=== PATIENT | male | born 1985 | race Caucasian/White ===

== ENCOUNTER 2019-08-31 18:49 | Inpatient (IN) | payer OTHER, SELFPAY ==
[2019-08-31 20:26] LABS: Absolute Lymphocytes (CBC) 1.9 K/uL (0.7-4.9); Basophils % 0.7 % (0-1.3); MPV 11.3 fL (7.6-11.3); RBC Red Blood Cell Count 4.38 M/uL (4.33-5.43)
[2019-08-31] MEDS ORDERED: LORAZEPAM 1 MG TABLET ONE (20:26)
[2019-08-31] MEDS ORDERED: NA CHLORIDE 0.9% 2,000 ML ONE (20:33)
[2019-08-31 20:43] LABS: ALT/SGPT 80 U/L (12-78); AST/SGOT 41 U/L (15-37); Albumin 3.2 g/dL (3.4-5.0); Alkaline Phosphatase 59 U/L (45-117); BUN Blood Urea Nitrogen 25 mg/dL (7-18); Bicarbonate 25 mmol/L (21-32); Bilirubin Direct 0.2 mg/dL (0-0.2); Bilirubin Total 0.5 mg/dL (0.2-1.0); Glucose Level 111 mg/dL (74-106); Magnesium 2.2 mg/dL (1.8-2.4); NT PRO-BNP 1746 pg/mL (<125); Potassium 4.1 mmol/L (3.5-5.1); Protein, Total 6.5 g/dL (6.4-8.2); Sodium Level 138 mmol/L (136-145); Troponin (Emerg Dept Use Only) < 0.02 ng/mL (0.0-0.045)
[2019-08-31 20:46] LABS: Protime INR 1.13
--- NOTE | 2019-08-31 20:58 | RAD REPORT ---
EXAM DESCRIPTION: RAD - Chest Single View - 08/31/2019 8:41 pm CLINICAL HISTORY: DYSPNEA COMPARISON: None TECHNIQUE: AP portable chest image was obtained 08/31/2019 8:41 pm . FINDINGS: No peripheral mass consolidation. Central lung markings are mildly prominent. Baseline for the patient is unknown. Prominent cardiomegaly is present. Vasculature increased to a lesser degree. No measurable pleural effusion and no pneumothorax. No acute bony abnormality seen. No acute aortic findings suspected. IMPRESSION: No peripheral mass consolidation. Mild failure or volume overload are possible. Baseline for the patient is unknown.
--- NOTE | 2019-08-31 22:05 | P.HP ---
Certification for Inpatient Patient admitted to: Inpatient With expected LOS: >2 Midnights Practitioner: I am a practitioner with admitting privileges, knowledge of patient current condition, hospital course, and medical plan of care. Services: Services provided to patient in accordance with Admission requirements found in Title 42 Section 412.3 of the Code of Federal Regulations Patient History Date of Service: 08/31/19 Reason for admission: Lightheadedness, generalized weakness History of Present Illness: That 4-year-old gentleman with no known past medical history presented to the emergency department with a complaint of lightheadedness and feeling weak. Patient reports episode of palpitation that has lasted for weeks. He also reports an episode of nonproductive cough and completed a course of Zithromax. Patient stated he developed an episode of palpitation this morning, went to see her PCP, who prescribed for him Atenolol. Patient took the Atenolol and it help ed the palpitation but caused his blood pressures drop. His systolic blood pressure was down to 60 in the ED. His blood pressure responded to a bolus of normal saline and improved to the 120s. EKG demonstrates sinus rhythm PVCS. Initial troponin is negative. Patient is placed under observation for further management. Allergies Sulfa (Sulfonamide Antibiotics) Allergy (Verified 09/01/19 01:49) Itching/Hives/Rash Home Medications: NK [No Home Meds] 09/01/19 - Past Medical/Surgical History -: None -: None - Family History Family History: Reviewed- Non-Contributory - Family History Mother -: Lung disease Notes: Asthma - Social History Smoking Status: Never smoker Alcohol use: No CD- Drugs: No Place of Residence: Home Review of Systems Other: Except as documented, all other systems reviewed and negative. Physical Examination - Physical Exam General: Alert, In no apparent distress, Oriented x3 HEENT: Mucous membr. moist/pink, Sclerae nonicteric Respiratory: Clear to auscultation bilaterally, Normal air movement Cardiovascular: No edema, Regular rate/rhythm, Normal S1 S2, No murmurs Capillary refill: <2 Seconds Gastrointestinal: Normal bowel sounds, Soft and benign, Non-distended, Tenderness (Epigastrium) Musculoskeletal: No swelling, No erythema Integumentary: No rashes Neurological: Normal speech, Normal strength at 5/5 x4 extr - Studies Laboratory Data (last 24 hrs) 05/27/20 20:09: PT 13.3 H, INR 1.13 08/31/19 20:09: WBC 7.6, Hgb 14.2, Hct 41.0, Plt Count 192 08/31/19 20:09: Sodium 138, Potassium 4.1, BUN 25 H, Creatinine 1.18, Glucose 111 H, Magnesium 2.2, Total Bilirubin 0.5, AST 41 H, ALT 80 H, Alkaline Phosphatase 59 Assessment and Plan - Problems (Diagnosis) (1) Drug-induced hypotension Current Visit: Yes Status: Acute (2) Palpitation Current Visit: Yes Status: Acute (3) PVCs (premature ventricular contractions) Current Visit: Yes Status: Acute (4) Abdominal pain Current Visit: Yes Status: Acute - Plan Place under observation. IV hydration with normal saline. Telemetry Trend troponin Obtain echocardiogram Cardiology consult Monitor blood pressure closely. Checked TSH and Free T4. Obtain CT chest, abdomen and pelvis. - Advance Directives Does patient have a Living Will: No Does patient have a Durable POA for Healthcare: No
[2019-09-01] MEDS ORDERED: SODIUM CHLORIDE 0.9% 10ML INJ IV PRN (01:51)
[2019-09-01] MEDS ORDERED: ONDANSETRON 4 MG/2 ML VIAL IV PRN (01:51)
[2019-09-01] MEDS: NA CHLORIDE 0.9% 1,000 ML IV SCH ×2 (02:59→08:34)
[2019-09-01] MEDS ORDERED: NA CHLORIDE 0.9% 1,000 ML ONE (03:00)
[2019-09-01] MEDS ORDERED: LORazepam 2 MG/ML VIAL IV ONE (03:13)
[2019-09-01] MEDS ORDERED: LORazepam 2 MG/ML VIAL ONE (03:13)
[2019-09-01 03:28] LABS: Absolute Lymphocytes (CBC) 1.9 K/uL (0.7-4.9); Basophils % 0.9 % (0-1.3); Hematocrit 39.8 % (39.6-49.0); Lymphocytes % 21.4 % (15.3-44.8); MPV 11.3 fL (7.6-11.3); RBC Red Blood Cell Count 4.25 M/uL (4.33-5.43)
[2019-09-01 03:44] LABS: Magnesium 2.3 mg/dL (1.8-2.4); Potassium 4.2 mmol/L (3.5-5.1); Thyroid Stimulating Hormone 3.32 uIU/mL (0.360-3.740)
[2019-09-01] MEDS: MORPHINE 2 MG/ML SYR IV PRN ×3 (06:47→21:41)
[2019-09-01] MEDS ORDERED: MORPHINE 2 MG/ML SYR ONE (06:50)
--- NOTE | 2019-09-01 07:40 | RAD REPORT ---
EXAM DESCRIPTION: CT - Chest For Pe Angio - 09/01/2019 6:48 am CLINICAL HISTORY: SOB COMPARISON: None. TECHNIQUE: Dynamically enhanced axial 3 mm thick images of the chest were obtained during administra tion of <100> mL Isovue 370 IV contrast. Coronal and oblique reconstruction images were generated and reviewed. Exam utilizes a protocol for optimal evaluation of pulmonary arterial tree. Maximum intensity projections 3D imaging was utilized All CT scans are performed using dose optimization technique as appropriate and may include automated exposure control or mA/KV adjustment according to patient size. FINDINGS: A pulmonary embolus is not seen. A thoracic aortic aneurysm is not noted. Small right and tiny left pleural effusions. A pericardial effusion is not seen. Cardiomegaly Mild to moderate ground-glass opacities left lung. Mild ground-glass opacities right lung IMPRESSION: Negative for a pulmonary embolism. Mild to moderate ground-glass opacities within the lungs probably indicate pulmonary edema.
--- NOTE | 2019-09-01 07:48 | RAD REPORT ---
EXAM DESCRIPTION: CT - Abdomen Pelvis W Contrast - 09/01/2019 6:48 am CLINICAL HISTORY: Abdominal pain COMPARISON: 2009 TECHNIQUE: Computed axial tomography of the abdomen pelvis was obtained. 100 cc Isovue-300 was admin istered intravenously. Oral contrast was not requested which limits evaluation of bowel. All CT scans are performed using dose optimization technique as appropriate and may include automated exposure control or mA/KV adjustment according to patient size. FINDINGS: Possible gallstones. The gallbladder wall appears mildly thickened The liver, spleen, pancreas, adrenal and kidneys appear unremarkable. There is no evidence of diverticulitis. Normal appendix. Small amount ascites Small umbilical hernia. Wall of the duodenal bulb appears thickened IMPRESSION: Possible cholelithiasis. Gallbladder wall is mildly thickened which may indicate cholecy stitis Mild thickening of the wall of the duodenal bulb could be related to gallbladder pathology or duodena l pathology
[2019-09-01] MEDS: ENOXAPARIN 40 MG/0.4 ML SQ SCH (08:35)
[2019-09-01] MEDS ORDERED: PANTOPRAZOLE 40 MG INJ IVP SCH (09:00)
--- NOTE | 2019-09-01 09:12 | P.PN ---
Date of Service: 09/01/19 Patient has been complaining of abdominal pain. CTA thorax is negative for pulmonary embolism. It did report possible pulmonary edema. CT abdomen and pelvis reports cholelithiasis and possible cholecystitis. It also reported thickening of the duodenum bulb which could be due duodenitis. Will order right upper quadrant sonogram. IV protonix. IV morphine p.r.n. Cardiology consult an echocardiogram are pending.
[2019-09-01] MEDS: PANTOPRAZOLE 40 MG INJ IVP SCH ×2 (09:21→21:57)
--- NOTE | 2019-09-01 11:35 | CON ---
Date of Consultation: 09/01/2019 Reason For Consultation: Palpitations and PVCs. History Of Present Illness: This is a 34-year-old obese male with a significant history of obstructi ve sleep apnea that is not treated, presented to the emergency room with lightheadedness, dizziness a nd near syncope. Reported that he was evaluated at a local clinic for fast heart complaint and was g iven atenolol 25 mg daily. Soon was he starting the medicine, started feeling very weak and dizzy an d about to pass out. Did not have an actual syncope. Denies having any chest pain. There is no linda sea, vomiting, or diarrhea, and the patient is active without exertional chest pain. Past Medical History: None. Medications: None. Allergies: SULFA. Social History: He does not smoke. Drinks occasionally. He does not use any drugs. Family History: No premature coronary artery disease, cancer. Review of Systems: All systems reviewed. They were negative except above mentioned in the HPI. Physical Examination: Vital Signs: Temperature is 98.7, pulse 73, breathing at 18, blood pressure 124/76, saturating 99%. General: Pleasant young male, in no distress. Head and Neck: Pupils are equal, react to light. Intact eye movements. No JVD. No cervical lympha denopathy. Neck supple. Thyroid is not enlarged. Lungs: Clear to auscultation bilaterally. No rhonchi, rales, or crackles. No accessory muscle use. Heart: Regular. No extra sounds. Abdomen: Soft, nontender. Bowel sounds positive. No organomegaly. No masses or hernia. No rigidi ty or rebound. Extremities: No edema, clubbing, or cyanosis. Intact pulses. Skin: No rash. Neurologic: Alert, awake, oriented x3. No acute focal deficits appreciated. Investigations: Sodium 141, BUN 26, creatinine 1.2. Troponin is negative x3. NT-proBNP is 1746. T SH is normal. CTA of the chest negative for pulmonary embolism. Has findings suggestive of pulmonar y edema. Assessment And Plan: 1.Dizziness with near syncope, probably due to hypotension and medication induced. Apparently, his blood pressure was in the 60s when that event happened and this is probably related to the atenolol. This is recommended to be discontinued completely at this point. 2.Premature ventricular contractions on EKG and elevated NT-proBNP suggestive of congestive heart fa ilure. CTA of the lung also suggestive of findings of congestive heart failure. I recommend diuresi s with Lasix 40 mg IV twice a day; carefully monitoring the BUN, creatinine, electrolytes, and discon tinue IV fluids; to obtain an echocardiogram to further evaluate the cardiac structure and further ma nagement accordingly. 3.Obstructive sleep apnea, untreated. Patient was educated on the necessity of management of sleep apnea as well as weight loss. Thank you for this consultation. /TINO Voice ID: [id number] Report ID: [id number]
--- NOTE | 2019-09-01 17:35 | RAD REPORT ---
EXAM DESCRIPTION: US - Abdomen Exam Limited - 09/01/2019 5:24 pm CLINICAL HISTORY: Cholelithiasis COMPARISON: Abdomen Pelvis W Contrast dated 09/01/2019 FINDINGS: No gallstones, sludge or other abnormalities within the gallbladder lumen. Gallbladder wal l is slightly thickened. Folds or septations are seen in the gallbladder. No pericholecystic fluid co nfirmed. No common duct stone or biliary tree dilatation identified. IMPRESSION: No stones or sludge identifiable in the lumen. Gallbladder wall is slightly thickened and edematous. Correlation is needed with any cholecystitis cl inical or laboratory findings.
[2019-09-01] MEDS: FUROSEMIDE 40 MG/4 ML VIAL IV SCH ×2 (21:00→23:27)
--- NOTE | 2019-09-01 21:00 | P.PN ---
Subjective Date of Service: 09/01/19 Chief Complaint: Lightheadedness, generalized weakness Patient has been complaining of abdominal pain. His heart rate has been in the low 100s. He denies any palpitation. Physical Examination - Vital Signs Temperature: 97.4 F Blood Pressure: 100/60 Pulse: 83 Respirations: 18 Pulse Ox (%): 95 - Physical Exam General: Alert, In no apparent distress, Oriented x3, Obese HEENT: Mucous membr. moist/pink Neck: Supple, JVD not distended Respiratory: Clear to auscultation bilaterally, Normal air movement Cardiovascular: No edema, Regular rate/rhythm, Normal S1 S2 Gastrointestinal: Normal bowel sounds, Soft and benign, Tenderness (Epigastrium) Musculoskeletal: No swelling, No erythema Integumentary: No rashes Neurological: Normal strength at 5/5 x4 extr Assessment And Plan - Current Problems (Diagnosis) (1) Drug-induced hypotension Current Visit: Yes Status: Acute (2) Palpitation Current Visit: Yes Status: Acute (3) PVCs (premature ventricular contractions) Current Visit: Yes Status: Acute (4) Abdominal pain Current Visit: Yes Status: Acute (5) Congestive heart failure Current Visit: Yes Status: Acute (6) Cholelithiasis Current Visit: Yes Status: Acute - Plan Continue IV hydration with normal saline. Troponin trended negative Echocardiogram is pending Cardiology consult appreciated. IV Lasix is for CHF Right upper quadrant sonogram to further evaluate the cholelithiasis given abdominal pain. General surgery consult pending liver ultrasound result. Monitor blood pressure closely. Tsh within normal limit. .
[2019-09-01] MEDS: LORAZEPAM 1 MG TABLET PO PRN (23:28)
[2019-09-02 00:01] LABS: Urine Appearance CLEAR; Urine Bilirubin NEGATIVE (NEG); Urine Blood NEGATIVE (NEG); Urine Color DK YELLOW; Urine Glucose NEGATIVE (NEG); Urine Microscopic Reflex NO UMIC; Urine Protein NEGATIVE (NEG); Urine Specific Gravity >=1.030 (1.005-1.030); Urine Urobilinogen 0.2 mg/dL (0.2-1.0)
--- NOTE | 2019-09-02 07:52 | P.PN ---
Subjective Date of Service: 09/02/19 Chief Complaint: Lightheadedness, generalized weakness Patient states his abdominal pain is much better. He denies shortness of breath. He reports anxiety. His heart rate remain in the low 100s. Physical Examination - Vital Signs Temperature: 97.1 F Blood Pressure: 103/66 Pulse: 107 Respirations: 18 Pulse Ox (%): 95 - Physical Exam General: Alert, In no apparent distress HEENT: Mucous membr. moist/pink, EOMI Neck: Supple, JVD not distended Respiratory: Clear to auscultation bilaterally, Normal air movement Cardiovascular: No edema, Normal S1 S2, Other (Tachycardic) Gastrointestinal: Normal bowel sounds, Soft and benign, No tenderness Musculoskeletal: No swelling, No erythema Integumentary: No rashes Assessment And Plan - Current Problems (Diagnosis) (1) Drug-induced hypotension Current Visit: Yes Status: Resolved (2) Palpitation Current Visit: Yes Status: Acute (3) PVCs (premature ventricular contractions) Current Visit: Yes Status: Acute (4) Congestive heart failure Current Visit: Yes Status: Acute (5) Cholelithiasis Current Visit: Yes Status: Acute - Plan Off IV fluid. Echocardiogram is pending Cardiology consult appreciated. On IV Lasix is for CHF Right upper quadrant sonogram: Thickened and edematous gallbladder wall suggesting acute cholecystitis. General surgery consult requested. Monitor blood pressure closely.
[2019-09-02] MEDS: FUROSEMIDE 40 MG/4 ML VIAL IV SCH ×2 (08:32→20:46)
[2019-09-02] MEDS: PANTOPRAZOLE 40 MG INJ IVP SCH ×2 (08:32→20:49)
[2019-09-02] MEDS: ENOXAPARIN 40 MG/0.4 ML SQ SCH (08:32)
[2019-09-02] MEDS: LORAZEPAM 1 MG TABLET PO PRN ×2 (10:15→19:45)
--- NOTE | 2019-09-02 13:32 | ECHO ---
HEIGHT: 5 ft 3 in WEIGHT: 190 lb 0 oz DATE OF STUDY: 09/02/[address]: latonia stafford 2-DIMENSIONAL: YES M.MODE: YES DOPPLER: YES COLOR FLOW: YES TDS: NO PORTABLE: NO DEFINITY: NO BUBBLE STUDY: NO DIAGNOSIS: HYPOTENSION CARDIAC HISTORY: CATHERIZATION: NO SURGERY: NO PROSTHETIC VALVE: NO PACEMAKER: NO MEASUREMENTS (cm) DIASTOLIC (NORMALS) SYSTOLIC (NORMALS) IVSd 1.0 (0.6-1.2) LA Diam 4.6 (1.9-4.0) LVEF 10-15% LVIDd 6.1 (3.5-5.7) LVIDs 5.5 (2.0-3.5) %FS 9% LVPWd 1.1 (0.6-1.2) Ao Diam 2.8 (2.0-3.7) 2 DIMENSIONAL ASSESSMENT: RIGHT ATRIUM: NOMRAL LEFT ATRIUM: ENLARGED RIGHT VENTRICLE: MILD DYSFUNCTION LEFT VENTRICLE: DILATED TRICUSPID VALVE: NORMAL MITRAL VALVE: NORMAL PULMONIC VALVE: NORMAL AORTIC VALVE: NORMAL PERICARDIAL EFFUSION: NONE AORTIC ROOT: NORMAL LEFT VENTRICULAR WALL MOTION: SEVERE HYPOKINESIS GLOBELY. DOPPLER/COLOR FLOW: SEE ABOVE. COMMENTS: SEVERE LEFT VENTRICULAR DYSFUNCTION, EJECTION FRACTION 10-15%. SEVERE GLOBAL HYPOKINESIS. DIASTOLIC DYSFUNCTION. MILD MITRAL REGURGITATION, LEFT ATRIAL ENLARGEMENT. TECHNOLOGIST: MILAN HURTADO
[2019-09-02] MEDS: carvediloL 12.5 MG TAB PO SCH (17:32)
--- NOTE | 2019-09-02 19:13 | CON ---
Date of Consultation: 09/02/2019 Reason For Service: Chest pain and abdominal pain. History Of Present Illness: This is the case of a 34-year-old patient, comes to the hospital [facility] of chest pain. During the process, they also found to have some unstable vital signs so he was admitted to the hospital, found to be also having cholecystitis and surgical consult was obtained. T he patient feels better right now. He states that happened after eating. He does not recall any himanshu or episode. Allergies: SULFA. Medical Problems: None. Family History: Noncontributory. Social History: He does not smoke. He does not drink alcohol. Review of Systems: Ten-point otherwise unremarkable. Physical Examination: General: Patient is awake and alert. HEENT: Pupils are equal and reactive, anicteric. Neck: Supple. Chest: Clear. Abdomen: Epigastric tenderness. No Garcia. Extremities: Good capillary refill. Rectal: Deferred. Imaging Data: I reviewed the CAT scan and ultrasound shows one of them suspicious could be cholelith iasis, they are not sure the ultrasounds says no. Both of them at least agree on that the patient gilman s gallbladder distention and it could be a calculous cholecystitis. Laboratory Data: Blood work was reviewed with a WBC count of 7.6 and hemoglobin of 14.2. Chloride i s 112 and total bilirubin of 0.5. Assessment: A 34-year-old patient with chest pain but may be related also to some epigastric pain to the gallbladder. There is distention in that area even though the stone does in showing the gallbla dder I explained to him sometimes the stone may pass or may be tiny sludge that we cannot see. He is trying diet, today, he stated he has not get sick, so we explained to him several options. He may g o up for laparoscopic possible open cholecystectomy for acalculous cholecystitis with benefits, alter natives, and risks including, but not limited to infection, bleeding, damage to adjacent structures, anesthesia complication, choledocholithiasis, bile leak, pancreatitis, myocardial infarction, and ruth n . He also understands this may not relieve the symptoms and he might need more than one surgi indira intervention. At the same time, the other option will be diet control. He wants to give it a tr y to that, he wants to control his diet. He understands that may fail and even today in diet trial i f he fail then he may consider once again a surgical intervention. I will be here with you and with the patient to see which way we can address this issue. If he fails a diet today and then he was adv ised to be n.p.o. after midnight and then we will proceed with the cholecystectomy whenever he feels comfortable with it. If he gets to go home because he tolerates diet, then they may treat him with t he p.o. antibiotics, and then follow with my office in 1 week and a low-fat diet. He understood. JONNY/TINO Voice ID: [id number] Report ID: [id number]
[2019-09-03 05:29] LABS: Basophils % 0.9 % (0-1.3); Hematocrit 40.7 % (39.6-49.0); Lymphocytes % 28.5 % (15.3-44.8); MPV 10.9 fL (7.6-11.3); RBC Red Blood Cell Count 4.39 M/uL (4.33-5.43)
[2019-09-03 05:51] LABS: Potassium 3.3 mmol/L (3.5-5.1)
[2019-09-03] MEDS: carvediloL 12.5 MG TAB PO SCH ×2 (06:04→17:32)
[2019-09-03 07:12] LABS: Phosphorus 4.1 mg/dL (2.5-4.9)
--- NOTE | 2019-09-03 08:19 | P.PN ---
Subjective Date of Service: 09/03/19 Chief Complaint: Lightheadedness, generalized weakness Patient states his abdominal pain is much better. He reports being anxious. Heart rate has improved on the Coreg. Physical Examination - Vital Signs Temperature: 97.2 F Blood Pressure: 116/68 Pulse: 95 Respirations: 18 Pulse Ox (%): 98 - Physical Exam General: Alert, In no apparent distress HEENT: Mucous membr. moist/pink Neck: Supple Respiratory: Clear to auscultation bilaterally, Normal air movement Cardiovascular: No edema, Regular rate/rhythm, Normal S1 S2 Gastrointestinal: Normal bowel sounds, Soft and benign, No tenderness Musculoskeletal: No swelling, No erythema Integumentary: No rashes Assessment And Plan - Current Problems (Diagnosis) (1) Drug-induced hypotension Current Visit: Yes Status: Resolved (2) Palpitation Current Visit: Yes Status: Acute (3) PVCs (premature ventricular contractions) Current Visit: Yes Status: Acute (4) Cholelithiasis Current Visit: Yes Status: Acute (5) Acute systolic heart failure Current Visit: Yes Status: Acute - Plan Echocardiogram reported EF of 10-15% Contain IV Lasix. Need cardiology followup. Dr. Cid informed of patient's echo result. Updated patient on his current heart condition. Patient started on Coreg and lisinopril. General surgery input appreciated. Patient is high risk for surgery at this time until cleared by cardiology General surgery consult requested. Monitor blood pressure closely.
[2019-09-03] MEDS: FUROSEMIDE 40 MG/4 ML VIAL IV SCH ×3 (09:00→21:15)
[2019-09-03] MEDS: SPIRONOLACTONE 25 MG TABLET PO SCH (09:00)
[2019-09-03] MEDS ORDERED: POTASSIUM CL SA 10 MEQ TAB PO ONE (09:00)
[2019-09-03] MEDS: lisinopriL 10 MG TAB PO SCH (09:00)
[2019-09-03] MEDS: ENOXAPARIN 40 MG/0.4 ML SQ SCH (09:18)
[2019-09-03] MEDS: PANTOPRAZOLE 40 MG INJ IVP SCH ×2 (09:18→21:16)
[2019-09-03] MEDS: LORAZEPAM 1 MG TABLET PO PRN ×3 (09:21→22:34)
--- NOTE | 2019-09-03 18:44 | PN ---
Date of Progress Note: 09/03/2019 Subjective: I saw the patient by bedside. Feels generally weak with some shortness of breath, dyspn ea on exertion. No nausea, vomiting, diarrhea. Review of Systems: No chest pain. Minimal shortness of breath. No orthopnea. No cough, nausea, vomiting, diarrhea. N o abdominal pain. No history of urinary urgency. Other systems reviewed, all are negative. Physical Examination: Vital Signs: Temperature 97.2, pulse 95, breathing 18, blood pressure 116/68, saturating 95%. General: A pleasant young male, in no apparent distress. Head and Neck: Pupils are equal, reactive to light. Intact eye movements. Positive JVD. No cervic al lymph. Neck is supple. Thyroid is not enlarged. Lungs: Clear to auscultation bilaterally. No rhonchi, rales, crackles. No accessory muscle use. Heart: Regular rate and rhythm. No extra sounds. Abdomen: Soft, nontender. Bowel sounds positive. No organomegaly. No masses or hernia. No rigidi ty or rebound. Extremities: No edema, clubbing, cyanosis. Intact pulses. Skin: No rash. Neurologic: Alert, awake, oriented x3. No acute focal deficits appreciated. Lymph Nodes: No cervical or axillary lymphadenopathy. Investigations: Creatinine is 1.12. On echo, ejection fraction is 10% to 15%. Assessment And Plan: New-onset severe systolic congestive heart failure. Cardiac enzymes are negati ve. This is very unlikely to be ischemic. However, to complete the workup, we will schedule the pat ient for coronary angiogram on Thursday to rule out coronary artery disease as a cause of this. At thi s point, likely this is nonischemic cardiomyopathy and then I recommend guideline directed medical th erapy for congestive heart failure. Based on the blood pressure, start him on ELZBIETA inhibitor and if b lood pressure is on the lower side, I will try to cut down on the Coreg dose to 6.5 twice a day and t hen slowly increase the doses, as the patient was complaining of lightheadedness today. However, fol lowing this patient with you, we will plan for coronary angiogram on Thursday to complete the workup. SR/MODL Voice ID: [id number] Report ID: [id number]
[2019-09-04 06:19] LABS: Potassium 3.4 mmol/L (3.5-5.1)
[2019-09-04] MEDS: carvediloL 12.5 MG TAB PO SCH ×2 (06:34→17:45)
[2019-09-04 06:39] VITALS: BMI 33.0
--- NOTE | 2019-09-04 07:52 | P.PN ---
Subjective Date of Service: 09/04/19 Chief Complaint: Lightheadedness, generalized weakness Patient is complaining of fatigue. He denies abdominal pain. He attributed the fatigue to the blood pressure medications. Physical Examination - Vital Signs Temperature: 97.2 F Blood Pressure: 107/80 Pulse: 81 Respirations: 18 Pulse Ox (%): 95 - Physical Exam General: Alert, In no apparent distress HEENT: Mucous membr. moist/pink Neck: JVD not distended Respiratory: Clear to auscultation bilaterally, Normal air movement Cardiovascular: No edema, Normal pulses, Regular rate/rhythm, Normal S1 S2 Gastrointestinal: Normal bowel sounds, Soft and benign, No tenderness Musculoskeletal: No swelling, No erythema Integumentary: No rashes Assessment And Plan - Current Problems (Diagnosis) (1) Drug-induced hypotension Current Visit: Yes Status: Resolved (2) Palpitation Current Visit: Yes Status: Acute (3) PVCs (premature ventricular contractions) Current Visit: Yes Status: Acute (4) Cholelithiasis Current Visit: Yes Status: Acute (5) Acute systolic heart failure Current Visit: Yes Status: Acute - Plan Echocardiogram reported EF of 10-15% IV Lasix discontinued. Patient plan for cardiac catheterization tomorrow Contain Coreg and lisinopril. General surgery input appreciated. Patient is high risk for surgery at this time until cleared by cardiology Monitor blood pressure closely.
[2019-09-04] MEDS: ENOXAPARIN 40 MG/0.4 ML SQ SCH (08:22)
[2019-09-04] MEDS: PANTOPRAZOLE 40 MG INJ IVP SCH ×2 (08:22→20:34)
[2019-09-04] MEDS: SPIRONOLACTONE 25 MG TABLET PO SCH (08:22)
[2019-09-04] MEDS ORDERED: POTASSIUM CL SA 10 MEQ TAB PO ONE (09:00)
[2019-09-04] MEDS: lisinopriL 10 MG TAB PO SCH (09:00)
[2019-09-04] MEDS: LORAZEPAM 1 MG TABLET PO PRN ×2 (11:19→17:52)
[2019-09-05] MEDS: carvediloL 12.5 MG TAB PO SCH (05:49)
[2019-09-05 06:16] LABS: Potassium 3.7 mmol/L (3.5-5.1)
[2019-09-05] MEDS ORDERED: HEPA 1000U/500MLS 2,000 UNIT/1,000 ML BAG IV ONE (07:14)
[2019-09-05] MEDS: lisinopriL 10 MG TAB PO SCH (07:15)
[2019-09-05] MEDS: ENOXAPARIN 40 MG/0.4 ML SQ SCH (09:00)
[2019-09-05] MEDS ORDERED: POTASSIUM CL SA 10 MEQ TAB PO ONE (09:00)
[2019-09-05] MEDS: SPIRONOLACTONE 25 MG TABLET PO SCH (09:00)
--- NOTE | 2019-09-05 09:18 | P.PN ---
Subjective Date of Service: 09/05/19 Chief Complaint: Lightheadedness, generalized weakness Patient is anxious. He states the fatigue is better today. Physical Examination - Vital Signs Temperature: 97.9 F Blood Pressure: 110/80 Pulse: 94 Respirations: 18 Pulse Ox (%): 99 - Physical Exam General: Alert, In no apparent distress HEENT: Mucous membr. moist/pink, Sclerae nonicteric Neck: JVD not distended Respiratory: Clear to auscultation bilaterally, Normal air movement Cardiovascular: No edema, Regular rate/rhythm, Normal S1 S2 Gastrointestinal: Normal bowel sounds, Soft and benign, Non-distended, No tenderness Integumentary: No rashes Assessment And Plan - Current Problems (Diagnosis) (1) Drug-induced hypotension Current Visit: Yes Status: Resolved (2) Palpitation Current Visit: Yes Status: Acute (3) PVCs (premature ventricular contractions) Current Visit: Yes Status: Acute (4) Cholelithiasis Current Visit: Yes Status: Acute (5) Acute systolic heart failure Current Visit: Yes Status: Acute - Plan Echocardiogram reported EF of 10-15% Patient plan for cardiac catheterization tomorrow Contain Coreg and lisinopril. Patient is high risk for surgery at this time until cleared by cardiology Monitor blood pressure closely.
[2019-09-05] MEDS: PANTOPRAZOLE 40 MG INJ IVP SCH ×2 (09:20→20:44)
[2019-09-05] MEDS ORDERED: MIDAZOLAM HCL 2 MG/2 ML INJ ONE ×2 (10:15→10:39)
[2019-09-05] MEDS ORDERED: HEPARIN 5000 UNIT/ML 1 ML VIAL ONE ×2 (10:15→10:16)
[2019-09-05] MEDS ORDERED: NITROGLYCERIN/D5W 25 MG/250 ML BTL IV ONE (10:16)
[2019-09-05] MEDS ORDERED: FENTANYL CITR 100 MCG/2 ML ONE (10:16)
[2019-09-05] MEDS ORDERED: ATROPINE SULF 1 MG/10 ML SYR IV ONE (10:16)
[2019-09-05] MEDS ORDERED: NITROGLYCERIN 100 MCG/ML SYR (for cath lab use only) IV ONE (10:16)
[2019-09-05] MEDS ORDERED: NICARDIPINE HCL 25 MG/10 ML IV ONE (10:16)
[2019-09-05] MEDS ORDERED: NA CHLORIDE 0.9% 500 ML ONE (10:18)
[2019-09-05] MEDS ORDERED: FLUMAZENIL 0.1 MG/ML (5 mL VIAL) IV ONE (10:53)
--- NOTE | 2019-09-05 14:51 | ER ---
Nurse's Notes [facility] Name: Bruce Meidna Age: 34 yrs Sex: Male : 1985 Arrival Date: 08/31/2019 Time: 18:53 Bed 7 Private MD: Diagnosis: Chest pain on breathing Presentation: 08/30 19:07 Chief complaint: Patient states: Abdominal pain , CP, and SOB for over 1 month. Seeing ll1 a family PCP, trying to figure out what is going on. Took atenolol and hydroxyzine today, feels extremely tired with episodes of anxiety. Feels tingling, mouth numbness. Coronavirus screen: Proceed with normal triage. Patient denies a cough. Patient denies shortness of breath or difficulty breathing. Patient denies measured and/or subjective temperature greater than 100.4F prior to today's visit. Patient denies travel on a cruise ship or to a country the [facility] currently lists as an affected area. Patient denies contact with known and/or suspected case of COVID-19. Ebola Screen: Patient denies travel to an Ebola-affected area in the 21 days before illness onset. Initial Sepsis Screen: Does the patient meet any 2 criteria? No. Patient's initial sepsis screen is negative. Does the patient have a suspected source of infection? Yes: Acute abdominal pain. Risk Assessment: Do you want to hurt yourself or someone else? Patient reports no desire to harm self or others. Onset of symptoms was August 01, 2019. 19:07 Method Of Arrival: Wheelchair ll1 19:07 Acuity: LIAN 3 ll1 Triage Assessment: 19:30 General: Appears in no apparent distress. uncomfortable, Behavior is calm, cooperative, vc appropriate for age. Pain: Complains of pain in abdomen. GI: Reports upper abdominal pain. Historical: - Allergies: 19:10 Sulfa (Sulfonamide Antibiotics); ll1 - PSHx: 19:10 None; ll1 - Immunization history:: Adult Immunizations up to date. - Social history:: Smoking status: Patient reports use of chewing tobacco. Patient uses alcohol, occasionally. Patient/guardian denies using street drugs, The patient lives with spouse. Screenin:30 Abuse screen: Denies threats or abuse. Nutritional screening: No deficits noted. vc Tuberculosis screening: No symptoms or risk factors identified. Fall Risk None identified. Assessment: 19:30 General: Appears distressed, uncomfortable, Behavior is calm, anxious. Pain: Complains vc of pain in abdomen. Neuro: Level of Consciousness is awake, alert, obeys commands, Oriented to person, place, time, situation. Cardiovascular: Capillary refill < 3 seconds Patient's skin is warm and dry. Respiratory: Reports shortness of breath at rest Airway is patent Respiratory effort is even, unlabored, Respiratory pattern is regular, symmetrical, the patient has mild shortness of breath. GI: Abd is soft Abdomen is tender to palpation. : No signs and/or symptoms were reported regarding the genitourinary system. EENT: No signs and/or symptoms were reported regarding the EENT system. 20:30 Reassessment: Patient appears in no apparent distress at this time. Patient and/or vc family updated on plan of care and expected duration. Pain level reassessed. Patient is alert, oriented x 3, equal unlabored respirations, skin warm/dry/pink. 21:30 Reassessment: Patient appears in no apparent distress at this time. Patient and/or vc family updated on plan of care and expected duration. Pain level reassessed. Patient is alert, oriented x 3, equal unlabored respirations, skin warm/dry/pink. 22:30 Reassessment: Patient appears in no apparent distress at this time. Patient and/or vc family updated on plan of care and expected duration. Pain level reassessed. Patient is alert, oriented x 3, equal unlabored respirations, skin warm/dry/pink. Patient states feeling better. Patient states symptoms have improved. 23:30 Reassessment: Patient appears in no apparent distress at this time. Patient and/or vc family updated on plan of care and expected duration. Pain level reassessed. Patient denies pain at this time. Patient states feeling better. Patient states symptoms have improved. 08/31 00:30 Reassessment: Patient appears in no apparent distress at this time. Patient and/or vc family updated on plan of care and expected duration. Pain level reassessed. Patient resting with eyes closed, no complaints at this time. 01:30 Reassessment: Patient appears in no apparent distress at this time. No changes from vc previously documented assessment. Patient and/or family updated on plan of care and expected duration. Pain level reassessed. Vital Signs: 08/30 19:07 BP 96 / 67; Pulse 86; Resp 18; Temp 97.6; Pulse Ox 99% ; Pain 7/10; ll1 20:15 BP 68 / 51; Pulse 54; Resp 22; Pulse Ox 98% on R/A; vc 20:32 BP 81 / 68; Pulse 88; Resp 23; Pulse Ox 100% on R/A; vc 20:40 BP 72 / 56; Pulse 84; Resp 22; Pulse Ox 100% on R/A; vc 21:00 BP 81 / 63; Pulse 77; Resp 22; Pulse Ox 100% on R/A; vc 22:50 BP 98 / 50; Pulse 80; Resp 29; Pulse Ox 100% on 2 lpm NC; vc 23:10 BP 102 / 78; Pulse 86; Resp 33; Pulse Ox 99% on R/A; vc 23:30 BP 107 / 84; Pulse 85; Resp 31; Pulse Ox 97% on 2 lpm NC; vc 08/31 00:00 BP 112 / 74; Pulse 66; Resp 28; Pulse Ox 100% on 2 lpm NC; vc 01:41 BP 91 / 73; Pulse 84; Resp 22; Temp 97.7; Pulse Ox 99% on R/A; vc ED Course: 08/30 18:53 Patient arrived in ED. mr 19:10 Triage completed. ll1 19:11 Arm band placed on Patient placed in an exam room, on a stretcher. ll1 19:22 Allyson Rizzo, DENNIS is Primary Nurse. vc 19:23 Kenisha Taylor MD is Attending Physician. ma2 19:30 Patient has correct armband on for positive identification. Bed in low position. Call vc light in reach. library monitor on. Pulse ox on. NIBP on. 20:08 Inserted saline lock: 20 gauge in right antecubital area, using aseptic technique. mw2 Blood collected. 20:42 XRAY Chest (1 view) In Process Unspecified. EDMS 21:02 Eduard Juárez is Hospitalizing Provider. ma2 08/31 02:40 No provider procedures requiring assistance completed. Patient admitted, IV remains in vc place. Administered Medications: 08/30 20:20 Drug: NS 0.9% 1000 ml Route: IV; Rate: 1 bolus; Site: right antecubital; vc 08/31 02:55 Follow up: IV Status: Completed infusion; IV Intake: 1000ml vc 08/30 20:20 Drug: NS 0.9% 1000 ml Route: IV; Rate: 1 bolus; Site: right antecubital; vc 21:00 Follow up: IV Status: Completed infusion; IV Intake: 1000ml vc 23:00 Drug: Ativan 1 mg Route: PO; vc 08/31 00:00 Follow up: Response: No adverse reaction vc Intake: 08/30 21:00 IV: 1000ml; Total: 1000ml. vc 08/31 02:55 IV: 1000ml; Total: 2000ml. vc Outcome: 08/30 21:02 Decision to Hospitalize by Provider. ma2 08/31 02:40 Admitted to ER Hold. [facility] for further documentation. vc Condition: stable Instructed on the need for admit. 07:51 Patient left the ED. em Signatures: Dispatcher [employer] Allyssa Gifford Edgar, RN RN em Kenisha Taylor MD MD [facility] Gurinder [facility] Allyson Rizzo RN RN Kinza Wells RN RN ll1 Corrections: (The following items were deleted from the chart) 08/30 19:12 19:07 Chief complaint: Patient states: Abdominal pain , CP, and SOB for over 1 month. ll1 Seeing a family PCP, trying to figure out what is going on. Took atenolol and hydroxyzine today, feels extremely tired with episodes of anxiety. ll1 08/31 02:55 08/30 18:00 Response: No adverse reaction vc vc
--- NOTE | 2019-09-05 14:52 | EDPHYS ---
Physician Documentation [facility] Name: Bruce Medina Age: 34 yrs Sex: Male : 1985 Arrival Date: 08/31/2019 Time: 18:53 Bed 7 Private MD: ED Physician Kenisha Taylor HPI: 08/30 21:01 This 34 yrs old Male presents to ER via Wheelchair with complaints of ma2 Abdominal Pain, Body Numbness, Shortness Of Breath. 21:01 Associated signs and symptoms: Pertinent positives: chest pain, Pertinent negatives: ma2 productive cough, fever, loss of consciousness. Severity of symptoms: At their worst the symptoms were mild in the emergency department the symptoms are unchanged. The patient has not experienced similar symptoms in the past. Historical: - Allergies: 19:10 Sulfa (Sulfonamide Antibiotics); ll1 - PSHx: 19:10 None; ll1 - Immunization history:: Adult Immunizations up to date. - Social history:: Smoking status: Patient reports use of chewing tobacco. Patient uses alcohol, occasionally. Patient/guardian denies using street drugs, The patient lives with spouse. ROS: 21:01 Constitutional: Negative for fever, chills, and weight loss. ma2 21:01 All other systems are negative. Exam: 21:01 Constitutional: This is a well developed, well nourished patient who is awake, alert, ma2 and in no acute distress. ENT: Nares patent. No nasal discharge, no septal abnormalities noted. Tympanic membranes are normal and external auditory canals are clear. Oropharynx with no redness, swelling, or masses, exudates, or evidence of obstruction, uvula midline. Mucous membranes moist. Neck: Trachea midline, no thyromegaly or masses palpated, and no cervical lymphadenopathy. Supple, full range of motion without nuchal rigidity, or vertebral point tenderness. No Meningismus. Chest/axilla: Normal chest wall appearance and motion. Nontender with no deformity. No lesions are appreciated. Cardiovascular: Regular rate and rhythm with a normal S1 and S2. No gallops, murmurs, or rubs. Normal PMI, no JVD. No pulse deficits. Respiratory: Lungs have equal breath sounds bilaterally, clear to auscultation and percussion. No rales, rhonchi or wheezes noted. No increased work of breathing, no retractions or nasal flaring. Abdomen/GI: Soft, non-tender, with normal bowel sounds. No distension or tympany. No guarding or rebound. No evidence of tenderness throughout. Back: No spinal tenderness. No costovertebral tenderness. Full range of motion. Vital Signs: 19:07 BP 96 / 67; Pulse 86; Resp 18; Temp 97.6; Pulse Ox 99% ; Pain 7/10; ll1 20:15 BP 68 / 51; Pulse 54; Resp 22; Pulse Ox 98% on R/A; vc 20:32 BP 81 / 68; Pulse 88; Resp 23; Pulse Ox 100% on R/A; vc 20:40 BP 72 / 56; Pulse 84; Resp 22; Pulse Ox 100% on R/A; vc 21:00 BP 81 / 63; Pulse 77; Resp 22; Pulse Ox 100% on R/A; vc 22:50 BP 98 / 50; Pulse 80; Resp 29; Pulse Ox 100% on 2 lpm NC; vc 23:10 BP 102 / 78; Pulse 86; Resp 33; Pulse Ox 99% on R/A; vc 23:30 BP 107 / 84; Pulse 85; Resp 31; Pulse Ox 97% on 2 lpm NC; vc 08/31 00:00 BP 112 / 74; Pulse 66; Resp 28; Pulse Ox 100% on 2 lpm NC; vc 01:41 BP 91 / 73; Pulse 84; Resp 22; Temp 97.7; Pulse Ox 99% on R/A; vc MDM: 08/30 19:23 Patient medically screened. ma2 21:01 Differential diagnosis: Bronchitis CHF exacerbation, reactive airway disease. Data ma2 reviewed: vital signs, nurses notes. Counseling: I had a detailed discussion with the patient and/or guardian regarding: the historical points, exam findings, and any diagnostic results supporting the discharge/admit diagnosis, the need for further work-up and treatment in the hospital. 21:02 ED course: has tachycardia and chest pain and elevated bnp to 1.7 k, his pcp prescribed ma2 atenelol for tachycardia he took 1st dose today but has hypotension, respond well to ivf. will not give asa as he does not have acs risk factor, chf need to be ruled out. . 08/30 19:58 Order name: Basic Metabolic Panel; Complete Time: 20:51 mw2 08/30 19:58 Order name: CBC with Diff; Complete Time: 20:51 mw2 08/30 19:58 Order name: LFT's; Complete Time: 20:51 08/30 19:58 Order name: Magnesium; Complete Time: 20:51 mw2 08/30 19:58 Order name: NT PRO-BNP; Complete Time: 20:51 2 08/30 19:58 Order name: PT-INR; Complete Time: 20:51 2 08/30 19:58 Order name: Troponin (emerg Dept Use Only); Complete Time: 20:51 mw2 08/30 20:28 Order name: Glucose, Ancillary Testing; Complete Time: 20:51 EDCT 08/31 03:29 Order name: CBC with Automated Diff [facility] 08/31 03:37 Order name: Troponin I [facility] 08/31 03:45 Order name: Basic Metabolic Panel [facility] 08/31 03:45 Order name: Phosphorus [facility] 08/31 03:45 Order name: Lipid Profile [facility] 08/31 03:45 Order name: T4 Free [facility] 08/30 19:58 Order name: XRAY Chest (1 view) [facility] 08/30 19:58 Order name: EKG; Complete Time: 19:59 mw2 08/30 19:58 Order name: Cardiac monitoring; Complete Time: 19:58 2 08/30 19:58 Order name: EKG - Nurse/Tech; Complete Time: 20:55 mw2 08/30 19:58 Order name: IV Saline Lock; Complete Time: 20:19 2 08/30 19:58 Order name: Labs collected and sent; Complete Time: 19:58 2 08/30 19:58 Order name: O2 Per Protocol; Complete Time: 19:58 mw2 08/30 19:58 Order name: O2 Sat Monitoring; Complete Time: 19:58 [facility] 08/31 03:45 Order name: Magnesium [facility] 08/31 03:45 Order name: Thyroid Stimulating Hormone [facility] 08/31 07:34 Order name: Troponin I [facility] 08/31 07:41 Order name: CT EDCT 08/31 07:49 Order name: CT EDCT Administered Medications: 20:20 Drug: NS 0.9% 1000 ml Route: IV; Rate: 1 bolus; Site: right antecubital; vc 08/31 02:55 Follow up: IV Status: Completed infusion; IV Intake: 1000ml vc 08/30 20:20 Drug: NS 0.9% 1000 ml Route: IV; Rate: 1 bolus; Site: right antecubital; vc 21:00 Follow up: IV Status: Completed infusion; IV Intake: 1000ml vc 23:00 Drug: Ativan 1 mg Route: PO; vc 08/31 00:00 Follow up: Response: No adverse reaction vc Disposition: 08/31/19 21:02 Hospitalization ordered by Eduard Juárez for Inpatient Admission. Preliminary diagnosis is Chest pain on breathing. - Bed requested for Telemetry/MedSurg (Inpatient). - Status is Inpatient Admission. em - Condition is Stable. - Problem is new. - Symptoms are unchanged. Signatures: Dispatcher [employer] Chi Regalado, RN DENNIS Citlaly Vazquez RN RN tl1 Kenisha Taylor MD MD ndGurinder Fermin 2 Allyson Rizzo RN RN vc Lewis, Lynsay, RN RN ll1 Corrections: (The following items were deleted from the chart) 08/30 22:39 21:02 Hospitalization Ordered by Eduard Juárez for Observation. Preliminary diagnosis tl1 is Chest pain on breathing. Bed requested for Telemetry/MedSurg (observation). Status is Observation. Condition is Stable. Problem is new. Symptoms are unchanged. ma2 08/31 06:27 08/30 22:39 08/31/2019 21:02 Hospitalization Ordered by Eduard Juárez for Inpatient tl1 Admission. Preliminary diagnosis is Chest pain on breathing. Bed requested for [email or web address] ER HOLD. Status is Inpatient Admission. Condition is Stable. Problem is new. Symptoms are unchanged. tl1 08/31 07:51 06:27 08/31/2019 21:02 Hospitalization Ordered by Eduard Juárez for Inpatient em Admission. Preliminary diagnosis is Chest pain on breathing. Bed requested for Telemetry/MedSurg (Inpatient). Status is Inpatient Admission. Condition is Stable. Problem is new. Symptoms are unchanged. tl1
[2019-09-05] MEDS: FUROSEMIDE 40 MG/4 ML VIAL IV SCH ×2 (16:33→20:44)
--- NOTE | 2019-09-05 18:52 | PN ---
Date of Progress Note: 09/05/2019 Subjective: Seen at the bedside. He is breathing better. No distress. Review of Systems: No chest pain. Minimal shortness of breath and dyspnea on exertion. No orthopnea. No nausea, vomit ing, or diarrhea. No abdominal pain. No history of urinary urgency. No skin rash. All other syste ms reviewed and they are negative. Physical Examination: Vital Signs: Temperature is 97.3, pulse 83, breathing at 14, blood pressure is 90/63. General: Pleasant young male, in no distress. Head and Neck: Pupils are equal and reactive to light. Intact eye movements. Elevated JVD. No cer vical adenopathy. Neck is supple. Thyroid is not enlarged. Lungs: Crackles in both bases. No accessory muscle use or muscle retraction. Heart: Regular rate and rhythm. No extra sounds. Abdomen: Soft, nontender. Bowel sounds positive. No organomegaly. No masses or hernia. No rigidi ty or rebound. Extremities: Edema bilateral. No clubbing or cyanosis. Intact pulses. Skin: No rashes noted. Neurologic: Alert, awake, oriented x3. No acute focal deficits appreciated. Investigations: Sodium 139, BUN 20, creatinine 1.2. White blood cell count 7, hemoglobin 14.4. Assessment And Plan: Acute new onset systolic heart failure with exacerbation, severe systolic dysfu nction. Selective coronary angiogram was done today and showed normal coronary arteries. This is no nischemic cardiomyopathy. LVEDP was 31. Recommend to cut down on the heart failure medications to a llow for diuresis to provide more comfort. Decrease the Coreg from 12.5 to 6.25 twice a day and stop the Aldactone and initiate Lasix 40 mg IV q.12 hours. Monitor carefully BUN, creatinine, electrolytes. Discussed with the hospitalist caring for the patient. SR/MODL Voice ID: [id number] Report ID: [id number]
[2019-09-05] MEDS: LORAZEPAM 1 MG TABLET PO PRN (20:44)
[2019-09-05] MEDS: carvediloL 6.25 MG TAB PO SCH (21:00)
--- NOTE | 2019-09-05 21:46 | OP ---
Date of Procedure: 09/05/2019 Surgeon: POLI QUEZADA Bin Filler: Dr. Poli Quezada. Indication: New onset severe systolic dysfunction. Dietary Services Manager: Lowell Cid M.D. Access: Right radial artery 6-Wallisian closed with TR band. Complications: None. Total Sedation Time: 50 minutes. Description Of Procedure: The patient was brought into the cardiac catheterization laboratory. Afte r informed consent was signed, prepped and draped in usual sterile fashion and then we used fentanyl and Versed to achieve adequate moderate sedation. Then, the right radial artery under ultrasound robert dance was accessed using a pediatric micropuncture kit, then we inserted 6-Wallisian sheath and we took 6-Wallisian [place] catheter over J-wire into the aortic root engaged the left main coronary artery, then exchanged to a 6-Wallisian JR4 catheter to engage the right coronary artery and then to pass across the aortic valve into the LV. LVEDP was 51 mmHg and then upon pullback there was no difference in pressu re. Obtained standard views of the left and right coronary artery systems. Then removed everything wires and catheters and sheath and applied TR band with good hemostasis. Findings: 1.Normal coronary arteries. 2.Elevated LVEDP of 31 mmHg. Recommendation: 1.Guideline-directed therapy for congestive heart failure. 2.IV diuresis with Lasix. SR/MODL Voice ID: [id number] Report ID: [id number]
[2019-09-06 01:30] VITALS: O2SAT 93
[2019-09-06 07:07] LABS: Potassium 3.7 mmol/L (3.5-5.1)
[2019-09-06] MEDS: carvediloL 6.25 MG TAB PO SCH (08:43)
[2019-09-06] MEDS: PANTOPRAZOLE 40 MG INJ IVP SCH (08:45)
[2019-09-06] MEDS: ENOXAPARIN 40 MG/0.4 ML SQ SCH (08:45)
[2019-09-06] MEDS: FUROSEMIDE 40 MG/4 ML VIAL IV SCH (08:45)
[2019-09-06] MEDS: lisinopriL 10 MG TAB PO SCH (08:53)
--- NOTE | 2019-09-06 13:19 | P.DS ---
Admission Date: 09/02/19 Discharge Date: 09/06/19 Primary Care Provider: Dr. Bauer [facility] Disposition: ROUTINE DISCHARGE Discharge Condition: GOOD Reason for Admission: Lightheadedness, generalized weakness Consultations: Cardiology-Dr. Quezada/Dr. Cid Surgery-Dr. Sanz Procedures: ABUS: FINDINGS: No gallstones, sludge or other abnormalities within the gallbladder lumen. Gallbladder wall is slightly thickened. Folds or septations are seen in the gallbladder. No pericholecystic fluid confirmed. No common duct stone or biliary tree dilatation identified. IMPRESSION: No stones or sludge identifiable in the lumen. Gallbladder wall is slightly thickened and edematous. Ct scan: FINDINGS: Possible gallstones. The gallbladder wall appears mildly thickened The liver, spleen, pancreas, adrenal and kidneys appear unremarkable. There is no evidence of diverticulitis. Normal appendix. Small amount ascites Small umbilical hernia. Wall of the duodenal bulb appears thickened IMPRESSION: Possible cholelithiasis. Gallbladder wall is mildly thickened which may indicate cholecystitis Mild thickening of the wall of the duodenal bulb could be related to gallbladder pathology or duodenal pathology CT Scan Lung: FINDINGS: Possible gallstones. The gallbladder wall appears mildly thickened The liver, spleen, pancreas, adrenal and kidneys appear unremarkable. There is no evidence of diverticulitis. Normal appendix. Small amount ascites Small umbilical hernia. Wall of the duodenal bulb appears thickened IMPRESSION: Possible cholelithiasis. Gallbladder wall is mildly thickened which may indicate cholecystitis Mild thickening of the wall of the duodenal bulb could be related to gallbladder pathology or duodenal pathology ECHO: EF 10-15% LEFT VENTRICULAR WALL MOTION: SEVERE HYPOKINESIS GLOBELY. DOPPLER/COLOR FLOW: SEE ABOVE. COMMENTS: SEVERE LEFT VENTRICULAR DYSFUNCTION, EJECTION FRACTION 10-15%. SEVERE GLOBAL HYPOKINESIS. DIASTOLIC DYSFUNCTION. MILD MITRAL REGURGITATION, LEFT ATRIAL ENLARGEMENT. Heart catheterization: Date of Procedure: 09/05/2019 Surgeon: POLI QUEZADA Construction Project Manager: Dr. Poli Quezada. Indication: New onset severe systolic dysfunction. Bonding Agent: Lowell Cid M.D. Access: Right radial artery 6-Kenyan closed with TR band. Complications: None. Findings: 1. Normal coronary arteries. 2. Elevated LVEDP of 31 mmHg. Medical problem list: Dizziness with near syncope secondary to hypotension Premature ventricular contractions secondary to new acute systolic congestive heart failure, EF 10-15% with cardiomyopathy Obstructive sleep apnea Cholelithiasis Brief History of Present Illness: 34-year-old male with history of obstructive sleep apnea presented to emergency room with lightheadedness, dizziness and near-syncope. Patient had been given atenolol 25 mg daily for accelerated heart rate recently. Patient admitted for further evaluation Hospital Course: Patient presented with dizziness, near syncope likely from medication-atenolol. Upon further evaluation patient was seen by Cardiology to further evaluate. Echocardiogram shows ejection fraction of tendon 15%. Left ventricular wall motion abnormality noted with severe hypokinesis globally. Systolic dysfunction noted. Patient was further evaluated with heart catheterization. Patient identified with normal coronaries. Elevated left ventricular end-diastolic pressure at 31 mm Hg. Cardiology recommended to continue with a 1500 cc per day fluid restriction. Patient was placed on diuresis. At discharge patient without significant chest pain, shortness of breath. Patient will continue with 1500 cc per day fluid restriction. Recommend to monitor weight daily. If his weight increases by more than 5 lb he is to contact cardiology for further recommendation. For his CHF patient will continue with Lasix 40 mg daily. Patient will also continue with aspirin 81 mg daily, lisinopril 5 mg daily and carvedilol 3.125 mg 1 pill twice daily. Recommend to monitor blood pressure daily. Recommend to maintain blood pressure around 110-120 systolic. May need to hold blood pressure medication if systolic less than 100. Recommend follow up with cardiology in 1 week to further evaluate. Recommend to recheck echocardiogram in 3 6 months to monitor his ejection fraction and progress. This can be done by cardiology. Patient will need a follow up with cardiology to be cleared for work. Education on systolic CHF will be provided. Patient was also evaluated by surgery. Patient found to have cholelithiasis. Surgery was not recommended at this time due to his cardiac related problems. Education on cholelithiasis provided. Patient may follow up with surgery in the near future to further evaluate if symptoms persist. Patient with obstructive sleep apnea. Recommend follow up with pulmonology to further evaluate and treat. Patient will require sleep study to obtain CPAP machine. Vital Signs/Physical Exam: Temp Pulse Resp BP Pulse Ox 97.0 F 110 H 17 102/68 97 09/06/19 08:00 09/06/19 08:45 09/06/19 08:00 09/06/19 08:45 09/06/19 08:00 General: Alert, In no apparent distress, Oriented x3, Cooperative HEENT: Atraumatic Neck: Supple Respiratory: Clear to auscultation bilaterally, Normal air movement Cardiovascular: Normal pulses, Regular rate/rhythm Gastrointestinal: Normal bowel sounds, Soft and benign, Non-distended Integumentary: No tenderness/swelling, No erythema, No warmth, No cyanosis Neurological: Normal speech, Normal strength at 5/5 x4 extr, Normal tone, Normal affect Laboratory Data at Discharge: WBC 7.0 K/uL (4.3-10.9) D 09/03/19 05:13 Hgb 14.4 g/dL (13.6-17.9) 09/03/19 05:13 Hct 40.7 % (39.6-49.0) 09/03/19 05:13 Plt Count 155 K/uL (152-406) 09/03/19 05:13 PT 13.3 SECONDS (9.5-12.5) H 08/31/19 20:09 INR 1.13 08/31/19 20:09 Sodium 140 mmol/L (136-145) 09/06/19 06:14 Potassium 3.7 mmol/L (3.5-5.1) 09/06/19 06:14 BUN 19 mg/dL (7-18) H 09/06/19 06:14 Creatinine 1.12 mg/dL (0.55-1.3) 09/06/19 06:14 Glucose 91 mg/dL (74-106) 09/06/19 06:14 Phosphorus 4.1 mg/dL (2.5-4.9) 09/03/19 05:13 Magnesium 2.3 mg/dL (1.8-2.4) 09/01/19 02:50 Total Bilirubin 0.5 mg/dL (0.2-1.0) 08/31/19 20:09 AST 41 U/L (15-37) H 08/31/19 20:09 ALT 80 U/L (12-78) H 08/31/19 20:09 Alkaline Phosphatase 59 U/L (45-117) 08/31/19 20:09 Troponin I 0.02 ng/mL (0.0-0.045) 09/01/19 06:32 Triglycerides 89 mg/dL (<150) 09/01/19 02:50 Cholesterol 126 mg/dL (<200) 09/01/19 02:50 HDL Cholesterol 34 mg/dL (40-60) L 09/01/19 02:50 Cholesterol/HDL Ratio 3.71 09/01/19 02:50 Home Medications: Aspirin [Aspirin EC 81 MG] 81 mg PO DAILY #30 tablet. 09/06/19 Furosemide [Lasix*] 40 mg PO DAILY #30 tab 09/06/19 carvediloL [Coreg*] 3.125 mg PO BID #60 tab 09/06/19 lisinopriL [Prinivil*] 5 mg PO DAILY #30 tab 09/06/19 New Medications: Aspirin [Aspirin EC 81 MG] 81 mg PO DAILY #30 tablet. carvediloL [Coreg*] 3.125 mg PO BID #60 tab Furosemide [Lasix*] 40 mg PO DAILY #30 tab lisinopriL [Prinivil*] 5 mg PO DAILY #30 tab Patient Discharge Instructions: 1. Recommend follow up with PCP in 1 week to follow up this hospitalization. 2. Patient presented with dizziness, near syncope likely from medication-atenolol. Upon further evaluation patient was seen by Cardiology to further evaluate. Echocardiogram shows ejection fraction of tendon 15%. Left ventricular wall motion abnormality noted with severe hypokinesis globally. Systolic dysfunction noted. Patient was further evaluated with heart catheterization. Patient identified with normal coronaries. Elevated left ventricular end-diastolic pressure at 31 mm Hg. Cardiology recommended to continue with a 1500 cc per day fluid restriction. Patient was placed on diuresis. At discharge patient without significant chest pain, shortness of breath. Patient will continue with 1500 cc per day fluid restriction. Recommend to monitor weight daily. If his weight increases by more than 5 lb he is to contact cardiology for further recommendation. For his CHF patient will continue with Lasix 40 mg daily. Patient will also continue with aspirin 81 mg daily, lisinopril 5 mg daily and carvedilol 3.125 mg 1 pill twice daily. Recommend to monitor blood pressure daily. Recommend to maintain blood pressure around 110-120 systolic. May need to hold blood pressure medication if systolic less than 100. Recommend follow up with cardiology in 1 week to further evaluate. Recommend to recheck echocardiogram in 3 6 months to monitor his ejection fraction and progress. This can be done by cardiology. Patient will need a follow up with cardiology to be cleared for work. Education on systolic CHF will be provided. 3. Patient was also evaluated by surgery. Patient found to have cholelithiasis. Surgery was not recommended at this time due to his cardiac related problems. Education on cholelithiasis provided. Patient may follow up with surgery in the near future to further evaluate if symptoms persist. 4. Patient with obstructive sleep apnea. Recommend follow up with pulmonology to further evaluate and treat. Patient will require sleep study to obtain CPAP machine. Diet: AHA Activity: Ad josafat Time spent managing pt's care (in minutes): 55
[2019-09-06 14:03] VITALS: BP 102/64; TEMP 97.3
[2019-09-06] MEDS ORDERED: carvediloL 3.125 MG TAB PO SCH (21:00)
--- NOTE | 2019-09-07 00:27 | PN ---
Date of Progress Note: 09/06/2019 Mr. Medina was admitted with idiopathic cardiomyopathy, ejection fraction of 20% to 25%. Left heart catheterization yesterday was done by Dr. Bauer through the right wrist approach. He had normal cor onaries. Overnight, he is completely asymptomatic. He is in sinus rhythm. His vital signs are stab le. He is afebrile. His chest is clear. He has no edema. Mr. Medina should be discharged with a d iagnosis of idiopathic cardiomyopathy. He should be on aspirin, Lasix, carvedilol, and an ELZBIETA inhibi tor. He can go home and I will see him in the office in the next week or 2. He does have cholelithi asis, but is not going to have surgery at this point. DAVID/TINO Voice ID: [id number] Report ID: [id number]
[2019-09-07] MEDS ORDERED: FUROSEMIDE 40 MG TABLET PO SCH (09:00)
[2019-09-07] MEDS ORDERED: lisinopriL 5 MG TAB PO SCH (09:00)
== END 2019-09-06 14:33 | disposition home or self-care (01) | DRG 286 ==
LOC: ER 18:49 → ERHOLD 22:19 → 2ND 09-01 07:44 → OBSVTOIN 09-02 09:28
PROVIDERS: ADMIT Internal Medicine; ATTEND Family Medicine
PROC: 4A023N7 Measurement of Cardiac Sampling and Pressure, Left Heart, Percutaneous Approach (ICD-10-PCS; principal; 2019-09-05)
PROC: B2111ZZ Fluoroscopy of Multiple Coronary Arteries using Low Osmolar Contrast (ICD-10-PCS; 2019-09-05)
DX: I95.2 Hypotension due to drugs (principal); I50.23 Acute on chronic systolic (congestive) heart failure; I42.9 Cardiomyopathy, unspecified; T44.7X5A Adverse effect of beta-adrenoreceptor antagonists, initial encounter; Z88.1 Allergy status to other antibiotic agents; I49.3 Ventricular premature depolarization; R00.2 Palpitations; R10.9 Unspecified abdominal pain; E66.9 Obesity, unspecified; Z68.34 Body mass index [BMI] 34.0-34.9, adult; G47.33 Obstructive sleep apnea (adult) (pediatric); F41.9 Anxiety disorder, unspecified; K80.20 Calculus of gallbladder without cholecystitis without obstruction; Z79.82 Long term (current) use of aspirin; Z79.899 Other long term (current) drug therapy
CPT/HCPCS: 36415; 71045; 71275; 74177; 76705; 80048; 80061; 80076; 81003; 82947; 83735; 83880; 84100; 84132; 84439; 84443; 84484; 85025; 85610; 93005; 93306; 93458; 96360; 96361; 99285; C1893; C9113; G0378; J1644; J1650; J1940; J2250; J2270; J3010; J7030; J7040; Q9967

== ENCOUNTER 2019-12-29 13:22 | Emergency (ER) | payer OTHER, SELFPAY ==
--- OUTSIDE RECORDS SUMMARY | 2019-12-29 13:24 | XMS REPORT | Continuity of Care Document ---
:1985 Author Organization [facility] [employer] Care Team Providers Name Role Phone [facility] Unavailable Un available Problems Problem Status Onset Classification Date Comments Sourc e Date Reported Atypical chest Active Problem 09/04/2019 M edical pain (finding) Group Dyspnea Active Problem 09/17/2019 Medica l (finding) Group Generalized Active Problem 09/04/2019 [facility] anxiety Group disorder (disorder) Simple obesity Active Problem 09/17/2019 M edical (disorder) Group Sinus Active Problem 09/04/2019 Medica l tachycardia Group (finding) Ventricular Active Problem 09/17/2019 [facility] premature beats Grou p (disorder) Calculus in Active Problem 09/17/2019 [facility] biliary tract Group (disorder) Congestive Active Problem 09/17/2019 Medic al heart failure Group (disorder) Impaired Active Problem 09/17/2019 Medica l fasting Group glycaemia (disorder) Sleep apnea Active Problem 09/17/2019 Medi indira (finding) Group Medications Medication Details Route Status Patient Ordering Order Source Instructions Provider Date Aspirin 81 MG 81 mg = 1 Active Enteric Coated tab, PO, 020 Medical Tablet Daily, # 90 Group tab, 3 Refill(s) Aspirin 0 Refill(s) Inactive 020 Medical Group carvedilol 3.13 3.125 mg = 1 Active MG Oral Tablet tab, PO, 020 Medical [Coreg] BID, # 60 Group tab, 3 Refill(s) Furosemide 40 MG 40 mg = 1 Active Oral Tablet tab, PO, 020 Medical [Lasix] Daily, # 90 Group tab, 3 Refill(s) lisinopril 5 mg 5 mg = 1 Active oral tablet tab, PO, 020 Medical Daily, # 90 Group tab, 3 Refill(s) Hydroxyzine 25 mg = 1 Active Hydrochloride 25 tab, PO, 020 Medica l MG Oral Tablet QID, PRN Group Anxiety, X 10 day, # 40 tab, 0 Refill(s), Pharmacy: [id number] Atenolol 25 MG 25 mg = 1 No Longer 08/30/2 Oral Tablet tab, PO, Active 020 Medical Daily, # 30 Group tab, 1 Refill(s), Pharmacy: [facility] #[id number] Allergies, Adverse Reactions, Alerts Substance Category Reaction Severity Reaction Status Date Comments S ource type Reported sulfa drugs Assertion Drug Active allergy Medical Group Immunizations No Data Provided for This Section Results Order Name Results Value Reference Date Interpretation Comments Shanthi rce Range CHEM PANEL Glucose Lvl 120 65 - 99 08/30 Result Comment: Medical
Group Fasting reference interval

For someone without known diabetes, a glucose value
bet ween 100 and 125 mg/dL is consistent with
p rediabetes and should be confirmed with a
follow- up test.

Lab test performed by:
[facility]
[address]
[place] [address]
[facility] CHEM PANEL BUN 21 7 - 25 08/30 [facility] CHEM PANEL Creatinine 1.16 0.60 - 08/30 Lvl 1.35 /2019 [facility] CHEM PANEL eGFR NON-AFR. 82 > OR = 60 08/30 [facility] mL/min/1.[address] Group CHEM PANEL eGFR 95 > OR = 60 08/30 [place] mL/min/1.[address] Group CHEM PANEL B/C Ratio NOT 6 - 22 08/30 [facility] CHEM PANEL Sodium Lvl 139 135 - 146 08/30 Medical Group CHEM PANEL Potassium Lvl 4.1 3.5 - 5.3 08/30 [facility] Group CHEM PANEL Chloride Lvl 107 98 - 110 08/30 Medical Group CHEM PANEL CO2 26 20 - 32 08/30 [facility] Group CHEM PANEL Calcium Lvl 9.0 8.6 - 10.3 08/30 [facility] Group CHEM PANEL Total Protein 5.9 6.1 - 8.1 08/30 [facility] CHEM PANEL Albumin Lvl 3.8 3.6 - 5.1 08/30 [facility] CHEM PANEL Globulin 2.1 1.9 - 3.7 08/30 [facility] Group CHEM PANEL A/G Ratio 1.8 1.0 - 2.5 08/30 [facility] Group CHEM PANEL Bili Total 0.8 0.2 - 1.2 08/30 [facility] CHEM PANEL Alk Phos 47 36 - 130 05 [facility] CHEM PANEL ASPARTATE 21 10 - 40 08/30 [facility] CHEM PANEL ALANINE 43 9 - 46 08/30 [facility]IN[facility]RANSFER /2019 [facility] HEMATOLOGY WBC X 10x3 7.0 3.8 - 10.8 08/30 Result Comment: Medical
Lab Group test performed by:
[facility]
[address] [place] [address]
[place] [address]
[facility] HEMATOLOGY RBC X 10x6 4.46 4.20 - 08/30 [facility] 5.80 [facility] Group HEMATOLOGY Hgb 14.2 13.2 - 08/30 [facility] 17.1 Medical Group HEMATOLOGY Hct 41.2 38.5 - 08/30 50.0 Medical Group HEMATOLOGY MCV 92.4 80.0 - 08/30 100.0 Medical Group HEMATOLOGY MCH 31.8 27.0 - 08/30 33.0 Medical Group HEMATOLOGY MCHC 34.5 32.0 - 08/30 36.0 Medical Group HEMATOLOGY RDW 13.0 11.0 - 08/30 [facility] 15.0 [facility] HEMATOLOGY Platelet 191 140 - 400 08/30 Medical Group HEMATOLOGY MPV 13.0 7.5 - 12.5 08/30 Medical Group HEMATOLOGY Neutrophils # 4767 1500 - 08/30 [facility] 7800 [facility] HEMATOLOGY Lymphocytes # 1491 850 - 3900 08/30 Medical Group HEMATOLOGY Monocytes # 469 200 - 950 08/30 Medical Group HEMATOLOGY Eosinophils # 210 15 - 500 08/30 Medical Group HEMATOLOGY Basophils # 63 0 - 200 08/30 [facility] Group HEMATOLOGY Segs 68.1 08/30 [facility] Group HEMATOLOGY Lymphocytes 21.3 08/30 [facility] Group HEMATOLOGY Monocytes 6.7 08/30 [facility] Group HEMATOLOGY Eosinophils 3.0 08/30 [facility] Group HEMATOLOGY Basophils 0.9 08/30 Medical Group Pathology Reports No Data Provided for This Section Diagnostic Reports No Data Provided for This Section Consultation Notes No Data Provided for This Section Discharge Summaries No Data Provided for This Section History and Physicals No Data Provided for This Section Vital Signs Vital Sign Value Date Comments Source Systolic (mm Hg) 91 09/14/2019 [facility] Group Diastolic (mm Hg) 68 09/14/2019 Medical Group Heart Rate 95 09/14/2019 [facility] Gr[facility] p Respitory Rate 16 09/14/2019 [facility]up Temperature Oral (F) 97.4 F 09/14/2019 [facility] Height 177.8 cm 09/14/2019 [facility] Gr[facility] p Weight 104.364 09/14/2019 [facility] Gr[facility] p BMI Calculated 33.01 09/14/2019 [facility] Gr [facility]up Systolic (mm Hg) 113 08/31/2019 Medical Group Diastolic (mm Hg) 79 08/31/2019 Medical Group Heart Rate 115 08/31/2019 Medical Gr[facility] p Respitory Rate 16 08/31/2019 Medical Gr oup Temperature Oral (F) 98.1 F 08/31/2019 [facility] Group Height 177.8 cm 08/31/2019 Medical Gr[facility] p Weight 110.455 08/31/2019 [facility] Gr[facility] p BMI Calculated 34.94 08/31/2019 [facility] Gr [facility] Encounters Location Location Encounter Encounter Reason Attending ADM [place] Stat Source Details Type Number For Provider Date Date Visit Outpatient [id number] 08/30 [facility] [id number] 08/30 [facility] [place] [facility] Phone [phone] 08/30 09/01 Primary [place] /2019 [facility] Between [id number] 08/31 09/01 Primary Visit /2019 [facility] Outpatient [id number] 09/13 Active [facility] [id number] 09/13/11 Primary [place] /[facility] Procedures No Data Provided for This Section Assessment and Plan No Data Provided for This Section Plan of Care No Data Provided for This Section Social History Social History Date Source Social History TypeResponse 08/31/2019 [facility] Alcohol Current, Type Beer. Frequency: 3-5 time s per week. Previous treatment: None. Alcohol use interferes with work or home: No. Drinks more than intended: No. Others hurt by drinking: No. Ready to change: No. Household alcohol concerns: No. Employment/School Status: Employed. 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 Substance Abuse Use: Past. Smoking Status Current every day smoker; Type: Chewing tobacco; Exposure to Tobacco Smoke None; Cigarette Smoking Last 365 Days No; Reg Smoking Cessation Counseling No entered on: 09/14/19 Family History No Data Provided for This Section Advance Directives No Data Provided for This Section Functional Status No Data Provided for This Section
[2019-12-29] MEDS ORDERED: ONDANSETRON 4 MG/2 ML VIAL ONE (14:03)
[2019-12-29] MEDS ORDERED: MORPHINE 4 MG/ML SYR ONE (14:03)
[2019-12-29 14:22] LABS: Absolute Lymphocytes (CBC) 1.8 K/uL (0.7-4.9); Basophils % 1.1 % (0-1.3); Hematocrit 43.4 % (39.6-49.0); Lymphocytes % 26.7 % (15.3-44.8); MPV 9.7 fL (7.6-11.3); Protime INR 1.08; RBC Red Blood Cell Count 4.72 M/uL (4.33-5.43)
[2019-12-29 14:33] LABS: BUN Blood Urea Nitrogen 11 mg/dL (7-18); Bicarbonate 29 mmol/L (21-32); Glucose Level 107 mg/dL (74-106); Magnesium 2.1 mg/dL (1.8-2.4); NT PRO-BNP 325 pg/mL (<125); Potassium 3.9 mmol/L (3.5-5.1); Sodium Level 140 mmol/L (136-145); Troponin (Emerg Dept Use Only) < 0.02 ng/mL (0.0-0.045)
--- NOTE | 2019-12-29 15:35 | ER ---
Nurse's Notes [facility] Name: Bruce Medina Age: 34 yrs Sex: Male : 1985 Arrival Date: 12/29/2019 Time: 13:24 Bed 15 Private MD: Diagnosis: Chest pain, unspecified;Dyspnea, unspecified;Unspecified combined systolic (congestive) and diastolic (congestive) heart failure Presentation: 12/28 13:36 Chief complaint: Patient states: CP and SOB that began 1.5 hours ago. Pt has a history ss of Stage IV heart failiure. Coronavirus screen: Client denies travel out of the [place] in the last 14 days. Ebola Screen: Patient denies exposure to infectious person. Patient denies travel to an Ebola-affected area in the 21 days before illness onset. Initial Sepsis Screen: Does the patient meet any 2 criteria? No. Patient's initial sepsis screen is negative. Does the patient have a suspected source of infection? No. Patient's initial sepsis screen is negative. Risk Assessment: Do you want to hurt yourself or someone else? Patient reports no desire to harm self or others. Onset of symptoms was December 29, 2019. 13:36 Method Of Arrival: Ambulatory ss 13:36 Acuity: LIAN 2 ss Historical: - Allergies: 13:38 Sulfa (Sulfonamide Antibiotics); ss - PMHx: 13:38 Heart Failure; ss - PSHx: 13:38 None; ss - Immunization history:: Adult Immunizations up to date. - Social history:: Smoking status: Patient denies any tobacco usage or history of. - Family history:: not pertinent. - Hospitalizations: : No recent hospitalization is reported. Screenin:45 Abuse screen: Denies threats or abuse. Denies injuries from another. Nutritional ca1 screening: No deficits noted. Tuberculosis screening: No symptoms or risk factors identified. Fall Risk IV access (20 points). Assessment: 13:45 General: Appears in no apparent distress. comfortable, Behavior is calm, cooperative, ca1 appropriate for age. Pain: Pain: Complains of pain in mid-sternal area Pain does not radiate. Pain currently is 5 out of 10 on a pain scale. Pain began 1 hour ago. Is continuous, Also complains of nausea, shortness of breath, dizziness. Neuro: Level of Consciousness is awake, alert, obeys commands, Oriented to person, place, time, situation. Cardiovascular: Heart tones S1 S2 present Capillary refill < 3 seconds Patient's skin is warm and dry. Rhythm is sinus rhythm. Respiratory: Airway is patent Respiratory effort is even, unlabored, Respiratory pattern is regular, symmetrical, Breath sounds are clear bilaterally. GI: Abdomen is round non-distended, Bowel sounds present X 4 quads. Abd is soft and non tender X 4 quads. : No signs and/or symptoms were reported regarding the genitourinary system. EENT: No signs and/or symptoms were reported regarding the EENT system. Derm: Skin is intact, is healthy with good turgor, Skin is pink, warm \T\ dry. Musculoskeletal: Circulation, motion, and sensation intact. Capillary refill < 3 seconds. 14:45 Reassessment: Patient appears in no apparent distress at this time. Patient and/or ca1 family updated on plan of care and expected duration. Pain level reassessed. Patient is alert, oriented x 3, equal unlabored respirations, skin warm/dry/pink. 15:49 Reassessment: Patient appears in no apparent distress at this time. Patient and/or ca1 family updated on plan of care and expected duration. Pain level reassessed. Patient is alert, oriented x 3, equal unlabored respirations, skin warm/dry/pink. 16:24 Reassessment: Patient appears in no apparent distress at this time. Patient and/or ca1 family updated on plan of care and expected duration. Pain level reassessed. Patient is alert, oriented x 3, equal unlabored respirations, skin warm/dry/pink. Patient states feeling better. 16:25 Reassessment: Called for report, Nurse will call back. ca1 16:57 Reassessment: [facility] ca1 17:30 Reassessment: Patient appears in no apparent distress at this time. Patient and/or ca1 family updated on plan of care and expected duration. Pain level reassessed. Patient is alert, oriented x 3, equal unlabored respirations, skin warm/dry/pink. 18:27 Reassessment: Patient appears in no apparent distress at this time. Patient and/or ca1 family updated on plan of care and expected duration. Pain level reassessed. Patient is alert, oriented x 3, equal unlabored respirations, skin warm/dry/pink. at bedside. 19:10 Reassessment: Patient appears in no apparent distress at this time. Patient is alert, ca1 oriented x 3, equal unlabored respirations, skin warm/dry/pink. Vital Signs: 13:36 BP 106 / 74; Pulse 82; Resp 22; Temp 98.2(TE); Pulse Ox 100% ; Weight 99.79 kg; Height ss 5 ft. 10 in. (177.80 cm); Pain 6/10; 14:30 BP 90 / 55; Pulse 68; Resp 16 S; Pulse Ox 96% on R/A; ca1 15:30 BP 99 / 62; Pulse 62; Resp 19 S; Pulse Ox 97% on R/A; ca1 16:24 BP 92 / 55; Pulse 62; Resp 16 S; Pulse Ox 98% on R/A; ca1 17:30 BP 95 / 61; Pulse 59; Resp 17 S; Pulse Ox 98% on R/A; ca1 18:28 BP 96 / 65; Pulse 70; Resp 16 S; Pulse Ox 98% on R/A; ca1 19:10 BP 99 / 74; Pulse 61; Resp 14 S; Pulse Ox 100% on R/A; ca1 13:36 Body Mass Index 31.57 (99.79 kg, 177.80 cm) ss ED Course: 13:24 Patient arrived in ED. ag5 13:37 Triage completed. ss 13:38 Arm band placed on left wrist. ss 13:41 Fox Dutton MD is Attending Physician. rn 13:42 Kati Connor RN is Primary Nurse. ca1 13:45 Patient has correct armband on for positive identification. Placed in gown. Bed in low ca1 position. Call light in reach. Side rails up X2. monitoring tech on. Pulse ox on. NIBP on. Warm blanket given. 13:54 Initial lab(s) drawn, by me, sent to lab. Inserted saline lock: 20 gauge in left ca1 antecubital area, using aseptic technique. Blood collected. Patient maintains SpO2 saturation greater than 95% on room air. 14:47 XRAY Chest (1 view) In Process Unspecified. EDMS 19:12 No provider procedures requiring assistance completed. Patient transferred, IV remains ca1 in place. Administered Medications: 13:55 Drug: Zofran (Ondansetron) 4 mg Route: IVP; Site: left antecubital; ca1 15:50 Follow up: Response: No adverse reaction; Pain is decreased; RASS: Alert and Calm (0) ca1 14:03 Drug: morphine 4 mg {Note: rass 0.} Route: IVP; Site: left antecubital; ca1 15:51 Follow up: Response: No adverse reaction; Nausea is decreased ca1 Outcome: 15:35 ER care complete, transfer ordered by . rn 19:12 Transferred by ground EMS to [facility], Transfer form completed. X-rays sent ca1 w/ patient. 19:12 Condition: stable 19:12 Instructed on the need for transfer. 19:12 Patient left the ED. ca1 Signatures: Dispatcher [employer] EDMS Fox Dutton MD MD rn Smirch, Shelby, RN RN ss Kati Connor RN RN ca1 Marifer Quigley ag5 Corrections: (The following items were deleted from the chart) 13:40 13:36 Acuity: LIAN 3 ss ss
--- NOTE | 2019-12-29 15:35 | EDPHYS ---
Physician Documentation [facility] Name: Bruce Medina Age: 34 yrs Sex: Male : 1985 Arrival Date: 12/29/2019 Time: 13:24 Bed 15 Private MD: ED Physician Fox Dutton HPI: 12/28 15:17 This 34 yrs old Male presents to ER via Ambulatory with complaints of Chest rn Pain, Shortness Of Breath. 15:17 The patient or guardian reports chest pain that is located primarily in the substernal rn area. The pain does not radiate. Associated signs and symptoms: Pertinent positives: lightheadedness, shortness of breath, Pertinent negatives: cough, diaphoresis. The chest pain is described as a heaviness. Duration: The patient or guardian reports a single episode, The patient or guardian reports multiple episodes, that are intermittent. Modifying factors: The symptoms are alleviated by nothing. the symptoms are aggravated by nothing. Severity of pain: At its worst the pain was moderate in the emergency department the pain has improved. The patient has not experienced similar symptoms in the past. The patient has not recently seen a physician. Reports chest pain at rest, assoc with sob and lightheaded, due to get pacemaker and defibrillator tomorrow at [facility], has terrible heart failure, wearing life vest. Feels better now. No defibrillation or alarms.. Historical: - Allergies: 13:38 Sulfa (Sulfonamide Antibiotics); ss - PMHx: 13:38 Heart Failure; ss - PSHx: 13:38 None; ss - Immunization history:: Adult Immunizations up to date. - Social history:: Smoking status: Patient denies any tobacco usage or history of. - Family history:: not pertinent. - Hospitalizations: : No recent hospitalization is reported. ROS: 15:17 Constitutional: Negative for fever, chills, and weight loss, Eyes: Negative for injury, rn pain, redness, and discharge, Cardiovascular: Negative for palpitations, and edema, Respiratory: Negative for cough, wheezing, and pleuritic chest pain, Abdomen/GI: Negative for abdominal pain, nausea, vomiting, diarrhea, and constipation, MS/Extremity: Negative for injury and deformity, Skin: Negative for injury, rash, and discoloration, Neuro: Negative for headache, numbness, tingling, and seizure. Exam: 15:17 Constitutional: This is a well developed, well nourished patient who is awake, alert, rn and in no acute distress. Head/Face: Normocephalic, atraumatic. Cardiovascular: Regular rate and rhythm. No pulse deficits. Respiratory: No increased work of breathing, no retractions or nasal flaring. Abdomen/GI: soft, non-tender Skin: Warm, dry MS/ Extremity: Pulses equal, no cyanosis. Neuro: Awake and alert, GCS 15 Vital Signs: 13:36 BP 106 / 74; Pulse 82; Resp 22; Temp 98.2(TE); Pulse Ox 100% ; Weight 99.79 kg; Height ss 5 ft. 10 in. (177.80 cm); Pain 6/10; 14:30 BP 90 / 55; Pulse 68; Resp 16 S; Pulse Ox 96% on R/A; ca1 15:30 BP 99 / 62; Pulse 62; Resp 19 S; Pulse Ox 97% on R/A; ca1 16:24 BP 92 / 55; Pulse 62; Resp 16 S; Pulse Ox 98% on R/A; ca1 17:30 BP 95 / 61; Pulse 59; Resp 17 S; Pulse Ox 98% on R/A; ca1 18:28 BP 96 / 65; Pulse 70; Resp 16 S; Pulse Ox 98% on R/A; ca1 19:10 BP 99 / 74; Pulse 61; Resp 14 S; Pulse Ox 100% on R/A; ca1 13:36 Body Mass Index 31.57 (99.79 kg, 177.80 cm) ss MDM: 13:42 Patient medically screened. rn 15:33 Differential diagnosis: acute myocardial infarction, acute pericarditis, anxiety, rn coronary artery disease congestive heart failure pleurisy, pneumothorax, stable angina. Data reviewed: vital signs, nurses notes, lab test result(s), EKG, radiologic studies, plain films, and as a result, I will admit patient. Counseling: I had a detailed discussion with the patient and/or guardian regarding: the historical points, exam findings, and any diagnostic results supporting the discharge/admit diagnosis, lab results, radiology results, the need to transfer to another facility, for higher level of care, [facility] does not immediately have the required specialist. ED course: No acute findings on w/u here, initiated transfer to [facility] given due for pacemaker/defibrillator tomorrow at [place], and patient uneasy about going home following chest pain/dyspnea. Anxiety definitely playing a role in symptoms but patient also with bad cardiomyopathy and could benefit from observation prior to device placement tomorrow. . 12/28 13:48 Order name: Basic Metabolic Panel rn 12/28 13:48 Order name: CBC with Diff; Complete Time: 14:57 rn 12/28 13:48 Order name: Magnesium rn 12/28 13:48 Order name: NT PRO-BNP; Complete Time: 14:57 rn 12/28 13:48 Order name: PT-INR; Complete Time: 14:57 rn 12/28 13:48 Order name: Troponin (emerg Dept Use Only); Complete Time: 14:57 rn 12/28 13:48 Order name: XRAY Chest (1 view); Complete Time: 15:48 rn 12/28 13:48 Order name: EKG; Complete Time: 13:48 rn 12/28 13:48 Order name: Cardiac monitoring; Complete Time: 13:53 rn 12/28 13:48 Order name: EKG - Nurse/Tech; Complete Time: 13:54 rn 12/28 13:48 Order name: Basic Metabolic Panel; Complete Time: 14:57 EDMS 12/28 13:48 Order name: Magnesium; Complete Time: 14:57 EDMS 12/28 13:48 Order name: IV Saline Lock; Complete Time: 14:03 rn 12/28 13:48 Order name: Labs collected and sent; Complete Time: 14:03 rn 12/28 13:48 Order name: O2 Per Protocol; Complete Time: 14:03 rn 12/28 13:48 Order name: O2 Sat Monitoring; Complete Time: 14:03 rn Administered Medications: 13:55 Drug: Zofran (Ondansetron) 4 mg Route: IVP; Site: left antecubital; ca1 15:50 Follow up: Response: No adverse reaction; Pain is decreased; RASS: Alert and Calm (0) ca1 14:03 Drug: morphine 4 mg {Note: rass 0.} Route: IVP; Site: left antecubital; ca1 15:51 Follow up: Response: No adverse reaction; Nausea is decreased ca1 Disposition: 12/29/19 15:35 Transfer ordered to [facility]. Diagnosis are Chest pain, unspecified, Dyspnea, unspecified, Unspecified combined systolic (congestive) and diastolic (congestive) heart failure. - Reason for transfer: Higher level of care. - Accepting physician is . - Condition is Stable. - Problem is an ongoing problem. - Symptoms have improved. Signatures: Dispatcher [employer] EDMS Fox Dutton MD MD rn Smirch, Shelby, RN RN ss AcobKati RN RN ca1 Corrections: (The following items were deleted from the chart) 15:22 15:17 Constitutional: Negative for fever, chills, and weight loss, Eyes: Negative for rn injury, pain, redness, and discharge, Cardiovascular: Negative for palpitations, and edema, Respiratory: Negative for shortness of breath, cough, wheezing, and pleuritic chest pain, Abdomen/GI: Negative for abdominal pain, nausea, vomiting, diarrhea, and constipation, MS/Extremity: Negative for injury and deformity, Skin: Negative for injury, rash, and discoloration, Neuro: Negative for headache, weakness, numbness, tingling, and seizure, rn 19:12 15:35 12/29/2019 15:35 Transfer ordered to [facility]. Diagnosis is Chest ca1 pain, unspecified; Dyspnea, unspecified; Unspecified combined systolic (congestive) and diastolic (congestive) heart failure. Reason for transfer: Higher level of care. Accepting physician is . Condition is Stable. Problem is an ongoing problem. Symptoms have improved. rn
--- NOTE | 2019-12-29 15:46 | RAD REPORT ---
EXAM DESCRIPTION: Angel Single View12/29/2019 2:47 pm CLINICAL HISTORY: Chest pain COMPARISON: August 2019 FINDINGS: The lungs appear clear of acute infiltrate. The heart is mildly to moderately enlarged IMPRESSION: No acute abnormalities displayed
[2019-12-29 19:18] VITALS: TEMP 98.2
[2019-12-29 19:29] VITALS: BP 99/74; O2SAT 100
== END 2019-12-29 19:12 | disposition short-term general hospital (02) ==
LOC: ER 13:22
DX: R06.00 Dyspnea, unspecified (principal); I50.40 Unspecified combined systolic (congestive) and diastolic (congestive) heart failure; Z88.2 Allergy status to sulfonamides
CPT/HCPCS: 93005; 85025; 80048; 36415; 83735; 85610; 84484; 83880; 71045; 96375; 96374; 99285; J2405

== ENCOUNTER 2020-05-13 16:03 | Emergency (ER) | payer OTHER ==
--- OUTSIDE RECORDS SUMMARY | 2020-05-13 16:07 | XMS REPORT | Continuity of Care Document ---
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 Group, Staphylococcus [place] aureus (organism) Fl dicid Center CARDIOMYOPATHY Active 12/29/19 [facility] [address] [place] [address] Center CCL / BI-V ICD W/ Active 12/19/19 [facility] [address] [place] [address] Center Atypical chest Active Problem 09/04/2019 [facility] edical pain (finding) Group Dyspnea (finding) Active Problem 01/06/2020 [facility] Group Generalized Active Problem 09/04/2019 [facility] anxiety disorder Roro up (disorder) Simple obesity Active Problem 01/06/2020 [facility] edical (disorder) Group Sinus tachycardia Active Problem 09/04/2019 [facility] Medical (finding) Group Ventricular Active Problem 01/06/2020 [facility] premature beats Grou p (disorder) Calculus in Active Problem 01/06/2020 [facility] biliary tract Group (disorder) Congestive heart Active Problem 01/06/2020 Medical failure (disorder) G roup Impaired fasting Active Problem 01/06/2020 Medical glycaemia Group (disorder) Sleep apnea Active Problem 01/06/2020 Medi indira (finding) Group Anxiety disorder Active Problem 01/06/2020 Medical (disorder) Group Cardiomyopathy Active Problem 01/06/2020 [facility] edical (disorder) Group Medications Medication Details Route Status Patient Ordering Order Source Instructions Provider Date citalopram 20 mg 20 mg = 1 tab, Active oral tablet PO, Daily, # 90 2019 Medi indira tab, 0 Group Refill(s), Pharmacy: [facility] [id number], 177.8, cm, 01/03/20 15:26:00 CDT, Height, 102.182, kg, 01/03/20 15:26:00 CDT, Weight sacubitril 24 MG 1 tab, PO, BID, Active / valsartan 26 # 56 tab, 0 2020 Medic al MG Oral Tablet Refill(s) Group [Entresto] Acetaminophen 1 tab, PO, Q6H, Active [place] 300 MG / Codeine PRN Pain, not 2020 edical Phosphate 30 MG to exceed 3000 C enter Oral Tablet mg [Tylenol with acetaminophen Codeine #3] per day, X 7 day, # 28 tab, 0 Refill(s), called to pharmacy metoprolol 25 mg 12.5 mg = 0.5 Active H [place] oral tablet, tab, PO, Daily, 2020 Med ical extended release Please take Terrence ter half tab daily, # 15 tab, 1 Refill(s) Docusate Sodium 1 tab, PO, Active [place] 50 MG / Daily, X 10 2020 [facility], ALF day, # 10 tab, C enter 8.6 MG Oral 0 Refill(s), Tablet called to pharmacy Docusate Sodium 1 tab, PO, Inactive [place] 50 MG / Daily, X 10 2019 [facility], ALF day, # 10 tab, C enter 8.6 MG Oral 0 Refill(s), Tablet called to pharmacy Acetaminophen 1 tab, PO, Q6H, Inactive H [place] 300 MG / Codeine PRN Pain, not 2020 edical Phosphate 30 MG to exceed 3000 C enter Oral Tablet mg [Tylenol with acetaminophen Codeine #3] per day, X 7 day, # 28 tab, 0 Refill(s), called to pharmacy metoprolol 25 mg 25 mg = 1 tab, Inactive [place] oral tablet, PO, Daily, # 30 2020 Med ical extended release tab, 1 Center Refill(s) Acetaminophen 1,000 mg = 2 Inactive [place] 500 MG Oral tab, PO, Q6H, 2020 Medica l Tablet PRN Pain Score Center 1-3, X 7 day, # 14 tab, 0 Refill(s) minocycline 100 100 mg = 1 cap, Active [place] mg oral capsule PO, [id number], 2020 Med ical Please take 5 Center more days of antibiotics. 1 pill two time daily., X 5 day, # 10 cap, 0 Refill(s) sacubitril 24 MG 1 tab, PO, BID, Active / valsartan # 60 tab, 2 2019 Medic al MG Oral Tablet Refill(s) [facility] Notes: (Same Inactive [place] as: Zofran) 2019 Medical MEDICATION Center WASTE Product Size: 4 mg Product Wasted: ___ mg Acetaminophen Notes: Max Inactive [place] as acetaminophen 2019 [facility] 4000 mg/day (4 Center gm/day). (Same as: Tylenol Extra Strength) Dilaudid Notes: Same as [place] Dilaudid 2019 [facility] Center Entresto 24 Notes: (Same No Longer [place] mg-26 mg oral as: Entresto) Active 2019 Medi indira tablet Avoid in Center patients with history of angioedema due to ELZBIETA inhibitor or ARB therapy. Do not use concomitantly or within 36 hours of ELZBIETA inhibitors Minocycline Notes: (Same [place] Longer [place] as:Minocin) No Active 2019 [facility] milk/antacids/i Center jose. Diazepam Notes: (Same Inactive [facility] as: Valium) 2019 [facility] Aspirin 81 mg, 1 tab, Inactive [place] Route: CHEW, 2019 Medical Drug form: [place] CHEWTAB, Daily, Dosing Weight 99.2, kg, Start date: 12/30/19 9:00:00 CDT, Duration: 30 day, Stop date: 01/28/20 9:00:00 CDT Docusate Sodium Notes: (Same as No Longer [place] 50 MG / Senokot-S) Active 2019 [facility] sennosides, ALF Equiv. to Center 8.6 MG Oral Monet-Colace. Tablet sacubitril 24 MG Notes: (Same Inactive H / valsartan as: Entresto) 2019 Med ical MG Oral Tablet Avoid in Center [st] patients with history of angioedema due to ELZBIETA inhibitor or ARB therapy. Do not use concomitantly or within 36 hours of ELZBIETA inhibitors sacubitril 49 MG 1 tab, Route: Inactive [place] / valsartan 51 PO, Drug Form: 2019 Me dical MG Oral Tablet TAB, Dosing Arpan r [Entresto] Weight 99.2, kg, BID, Start date: 12/30/19 9:00:00 CDT, Duration: 30 day, Stop date: 01/28/20 17:00:00 CDT heparin Notes: porcine [place] Longer [place] heparin Active 2019 [facility] Miralax Notes: Dissolve No Longer [place] in 8 oz of 2019 [facility] water or juice. Center (Same as: Miralax) sacubitril 49 MG 1 tab, PO, BID, Inactive [place] / valsartan 51 # 28 tab, 0 2019 Medic al MG Oral Tablet Refill(s) [place] [[facility]] Adult Aspirin 81 81 mg = 1 tab, No Longer [place] mg oral tablet, CHEW, Daily, 0 2019 edical chewable Refill(s) Center Acetaminophen Notes: Do not No Longer [place] exceed 4 2019 [facility] gm/day. (Same Center as: Tylenol) Potassium Notes: (Same [place] Longer [place] Chloride as: KCL) 2019 [facility] Infuse no Center faster than 10 mEq/hr if given peripherally. sodium phosphate Notes: Infuse No Longer [place] over [address] Do [address] not infuse Center phosphorous concurrently in the same line as TPN or IVF that contains calcium. For double lumen central lines, phosphorous may be infused in a separate lumen from TPN. potassium Notes: (Same [place] Longer [place] phosphate as: K 2019 [facility] Phosphate) Center Infuse over 4 hour. Do not infuse phosphorous concurrently in the same line as TPN or IVF that contains calcium. For double lumen central lines, phosphorous may be infused in a separate lumen from TPN. potassium Notes: (Same [place] Longer [place] phosphate-sodium as: Phos-NaK) 2019 edical phosphate 250 Each 1.5 gm pkt Ce nter mg-280 mg-160 mg has 250mg oral powder for phosphorous. reconstitution Mix w/2.5oz water and stir. Magnesium Notes: WASTE: No Longer [place] Sulfate F/P - Sink; E - 2019 [facility] Bin Magnesium Oxide Notes: (Same No Longer [facility] as: Mag-Ox 400) Active 2019 Medical Magnesium oxide Center [id number] elemental magnesium Dose=____mg magnesium oxide (___mg elemental magnesium) Calcium Notes: WASTE: No Longer [place] Gluconate F/P - Sink; E - 2019 Medica l [facility] Calcium Notes: (Same No Longer [place] Carbonate 500 MG As: Tums) 2019 Medic al Chewable Tablet Calcium Center Carbonate 500 mg = 200 mg elemental calcium Dose = mg calcium carbonate ( mg elemental calcium) Aspirin 81 MG 81 mg = 1 tab, Active Enteric Coated PO, Daily, # 90 2019 M edical Tablet tab, 3 Group Refill(s) Aspirin 0 Refill(s) Inactive 2019 Medical Group carvedilol 3.13 3.125 mg = 1 Active MG Oral Tablet tab, PO, BID, # 2019 M edical [Coreg] 60 tab, 3 Group Refill(s) Furosemide 40 MG 40 mg = 1 tab, Active Oral Tablet PO, Daily, # 90 2020 Medi indira [Lasix] tab, 3 Group Refill(s) lisinopril 5 mg 5 mg = 1 tab, Active oral tablet PO, Daily, # 90 2020 Medi indira tab, 3 Group Refill(s) Hydroxyzine 25 mg = 1 tab, Active Hydrochloride 25 PO, QID, PRN 2019 Fl dical MG Oral Tablet Anxiety, X 10 [place] day, # 40 tab, 0 Refill(s), Pharmacy: [facility] #[id number] Atenolol 25 MG 25 mg = 1 tab, No Longer Oral Tablet PO, Daily, # 30 Active 2019 Medi indira tab, 1 Group Refill(s), Pharmacy: [facility] #[id number] Allergies, Adverse Reactions, Alerts Substance Category Reaction Severity Reaction Status Date Comments S ource type Reported sulfa drugs Assertion Drug Active allergy Medical Group Immunizations No Data Provided for This Section Results Order Name Results Value Reference Date Interpretation Comments Shanthi rce Range CHEM PANEL Glucose Lvl 95 70 - 99 12/[address] CHEM PANEL BUN 20 7 - 22 12/[address] CHEM PANEL Creatinine 1.32 0.50 - 12/30 [place] Lvl 1.40 [facility] CHEM PANEL Sodium Lvl 137 135 - 145 12/[address] CHEM PANEL Potassium Lvl 3.8 3.5 - 5.1 12/30 [facility]2019 [facility] CHEM PANEL Chloride Lvl 104 95 - 109 12/30 [facility]2019 [facility] CHEM PANEL CO2 28 24 - 32 12/[address] CHEM PANEL Calcium Lvl 8.3 8.5 - 10.5 12/30 [facility] CHEM PANEL AGAP 8.8 10.0 - 12/30 [facility] 20.0 [facility] CHEM PANEL B/C Ratio 15 6 - 25 12/[address] CHEM PANEL eGFR 70 12/30 [facility] Comment: The Medical eGFR is Center calculated using the CKD-EPI formula. In most young, healthy individuals the eGFR will be >90 mL/min/1.73m2 . The eGFR declines with age. An eGFR of 60-89 may be normal in some populations, particularly the elderly, for whom the CKD-EPI formula has not been extensively validated. Use of the eGFR is not recommended in the following populations:< br/>
Rupali viduals with unstable creatinine concentration s, including patients and those with serious co-morbid conditions.<b r/>
Patie nts with extremes in muscle mass or diet.

The data above are obtained from the National Kidney Disease Education Program (NKDEP) which additionally recommends that when the eGFR is used in patients with extremes of body mass index for purposes of drug dosing, the eGFR should be multiplied by the estimated BMI. CHEM PANEL ALT 26 0 - 65 12/[address] CHEM PANEL Albumin Lvl 3.4 3.5 - 5.0 12/30 [facility]2019 [facility] CHEM PANEL Alk Phos 43 39 - 136 12/[address] CHEM PANEL Bili Total 0.5 0.2 - 1.3 12/[address] CHEM PANEL Total Protein 6.7 6.4 - 8.4 12/[address] CHEM PANEL AST 19 0 - 37 12/[address] CHEM PANEL Globulin 3.3 2.7 - 4.2 12/[address] CHEM PANEL A/G Ratio 1.0 0.7 - 1.6 12/[address] CHEM PANEL Magnesium Lvl 2.0 1.8 - 2.4 12/[address] CHEM PANEL Phosphorus 5.2 2.5 - 4.5 12/[address] HEMATOLOGY WBC 8.1 3.7 - 10.4 12/[address] HEMATOLOGY RBC 4.33 4.70 - 12/30 [place] 6.10 /2019 [facility] HEMATOLOGY Hgb 14.1 14.0 - 12/30 [place] 18.0 /2019 [facility] HEMATOLOGY Hct 40.3 42.0 - 12/30 [place] 54.0 /[address] [place] [address] HEMATOLOGY MCV 93.1 80.0 - 12/30 [place] 94.0 /[address] [place] [address] HEMATOLOGY MCH 32.6 27.0 - 12/30 [place] 31.0 /2019 [facility] HEMATOLOGY MCHC 35.0 32.0 - 12/30 [place] 36.[address] HEMATOLOGY RDW 13.7 11.5 - 12/30 [place] 14.[address] HEMATOLOGY Platelet 194 133 - 450 12/[address] HEMATOLOGY MPV 8.8 7.4 - 10.4 12/[address] HEMATOLOGY PT 14.1 12.0 - 12/30 [place] 14.7 /2019 [facility] HEMATOLOGY INR 1.09 0.85 - 12/30 [place] 1.17 /2019 [facility] HEMATOLOGY PTT 30.6 22.9 - 12/30 [place] 35.[address] HEMATOLOGY Segs 61.5 45.0 - 12/30 [place] 75.[address] HEMATOLOGY Lymphocytes 22.9 20.0 - 12/30 [place] 40.0 2020 [facility] HEMATOLOGY Monocytes 10.8 2.0 - 12.0 12/[address] HEMATOLOGY Eosinophils 4.1 0.0 - 4.0 12/[place] [address] HEMATOLOGY Basophils 0.7 0.0 - 1.0 12/[address] HEMATOLOGY Neutrophils # 5.0 1.5 - 8.1 12/30 [facility] HEMATOLOGY Lymphocytes # 1.9 1.0 - 5.5 12/30 [facility]2019 [facility] HEMATOLOGY Monocytes # 0.9 0.0 - 0.8 12/30 [facility]2019 [facility] HEMATOLOGY Eosinophils # 0.3 0.0 - 0.5 12/30 [facility]2019 [facility] HEMATOLOGY Basophils # 0.1 0.0 - 0.2 12/30 [facility] PARATHYROID Ca Ion WB 1.06 1.05 - 12/30 [facility] PROFILE . [facility] PARATHYROID Ca Norm WB 1.05 1.05 - 12/30 [facility] 04.30 [facility] BACTERIAL - MRSA by PCR Positive 1 12/29 Result [facility] SEROLOGY *ABN* Comment: Medical (12/30/19 8:59 AM) "Significant C enter Findings called to Kwasi Hanson at 12/31/2019 03:29 by DO. Read Back OK." CARDIAC Troponin-I <0.02 0.00 - 12/29 [facility] ENZYMES ng/mL 0.40 [facility] CHEM PANEL Glucose Lvl 85 70 - 99 12/[address] CHEM PANEL BUN 15 7 - 22 12/[address] CHEM PANEL Creatinine 1.05 0.50 - 12/29 [facility] Lvl 1.40 [facility] CHEM PANEL Sodium Lvl 137 135 - 145 12/[address] CHEM PANEL Potassium Lvl 3.7 3.5 - 5.1 12/29 [facility]2019 [facility] CHEM PANEL Chloride Lvl 106 95 - 109 12/29 [facility]2019 [facility] CHEM PANEL CO2 26 24 - 32 12/[address] CHEM PANEL Calcium Lvl 8.6 8.5 - 10.5 12/29 [facility]2019 [facility] CHEM PANEL AGAP 8.7 10.0 - 12/29 [facility] 20.0 [facility] CHEM PANEL eGFR 93 12/29 Result [facility] Comment: The Medical eGFR is Center calculated using the CKD-EPI formula. In most young, healthy individuals the eGFR will be >90 mL/min/1.73m2 . The eGFR declines with age. An eGFR of 60-89 may be normal in some populations, particularly the elderly, for whom the CKD-EPI formula has not been extensively validated. Use of the eGFR is not recommended in the following populations:< br/>
Rupali viduals with unstable creatinine concentration s, including patients and those with serious co-morbid conditions.<b r/>
Patie nts with extremes in muscle mass or diet.

The data above are obtained from the National Kidney Disease Education Program (NKDEP) which additionally recommends that when the eGFR is used in patients with extremes of body mass index for purposes of drug dosing, the eGFR should be multiplied by the estimated BMI. CHEM PANEL Magnesium Lvl 2.2 1.8 - 2.4 12/[address] CHEM PANEL Phosphorus 4.1 2.5 - 4.5 12/[address] HEMATOLOGY Segs 53.7 45.0 - 12/29 [facility] 75.[address] HEMATOLOGY Lymphocytes 29.6 20.0 - 12/29 [place] 40.0 2019 [facility] HEMATOLOGY Monocytes 8.9 2.0 - 12.0 12/[address] HEMATOLOGY Eosinophils 6.8 0.0 - 4.0 12/[address] HEMATOLOGY Basophils 1.0 0.0 - 1.0 12/[address] HEMATOLOGY Neutrophils # 4.0 1.5 - 8.1 12/[address] HEMATOLOGY Lymphocytes # 2.2 1.0 - 5.5 12/[address] HEMATOLOGY Monocytes # 0.7 0.0 - 0.8 12/[address] HEMATOLOGY Eosinophils # 0.5 0.0 - 0.5 12/[address] HEMATOLOGY Basophils # 0.1 0.0 - 0.2 12/[address] HEMATOLOGY WBC 7.5 3.7 - 10.4 12/[address] HEMATOLOGY RBC 4.47 4.70 - 12/29 [place] 6.[address] HEMATOLOGY Hgb 14.4 14.0 - 12/29 [place] 18.0 2019 [facility] HEMATOLOGY Hct 42.0 42.0 - 12/29 [facility] [place] 54.[address] HEMATOLOGY MCV 94.1 80.0 - 12/29 [place] 94.0 /2019 [facility] HEMATOLOGY MCH 32.2 27.0 - 12/29 [place] 31.0 /2019 [facility] HEMATOLOGY MCHC 34.2 32.0 - 12/29 [facility] 36.0 /2019 [facility] HEMATOLOGY RDW 13.7 11.5 - 12/29 [facility] 14.5 /2019 [facility] HEMATOLOGY Platelet 185 133 - 450 12/[address] HEMATOLOGY MPV 9.0 7.4 - 10.4 12/[address] HEMATOLOGY PT 13.9 12.0 - 12/29 [facility] 14.7 /2019 [facility] HEMATOLOGY INR 1.07 0.85 - 12/29 [place] 1.17 /2019 [facility] HEMATOLOGY PTT 27.8 22.9 - 12/29 [facility] 35.8 /[address] [place] [address] PARATHYROID Ca Ion WB 1.07 1.05 - 12/29 [facility] PROFILE [address] [place] [address] PARATHYROID Ca Norm WB 1.06 1.05 - 12/29 [facility] PROFILE 1.25 [facility] CARDIAC Troponin-I <0.02 0.00 - 12/29 [facility] ENZYMES 0.[address] [place] [address] CARDIAC BNP 90 <=100 12/29 [facility] ENZYMES pg/mL [address] [place] [address] CHEM PANEL ALT 28 0 - 65 12/[address] CHEM PANEL Albumin Lvl 3.6 3.5 - 5.0 12/[address] CHEM PANEL Alk Phos 46 39 - 136 12/[address] CHEM PANEL Bili Direct 0.1 0.0 - 0.3 12/[address] CHEM PANEL Bili Total 0.6 0.2 - 1.3 12/[address] CHEM PANEL Bili Indirect 0.5 0.0 - 1.0 12/[address] CHEM PANEL Total Protein 7.2 6.4 - 8.4 12/[address] CHEM PANEL AST 22 0 - 37 12/[address] CHEM PANEL Globulin 3.6 2.7 - 4.2 12/[address] CHEM PANEL A/G Ratio 1.0 0.7 - 1.6 12/[address] Center BLOOD BANK ABO/Rh A POS 12/29 [facility] RESULTS [facility] BLOOD BANK Antibody Scrn Negative 12/29 [facility] as RESULTS (12/29/19 8:48 PM) [facility] CHEM PANEL Magnesium Lvl 2.0 1.8 - 2.4 12/29 [facility] CHEM PANEL Phosphorus 4.2 2.5 - 4.5 12/[address] CHEM PANEL Glucose Lvl 82 70 - 99 12/29 [facility]2019 [facility] CHEM PANEL BUN 11 7 - 22 12/29 [facility]2019 [facility] CHEM PANEL Creatinine 0.96 0.50 - 12/29 [facility] Lvl 1.40 [facility] CHEM PANEL Sodium Lvl 137 135 - 145 12/29 [facility]2019 [facility] CHEM PANEL Potassium Lvl 4.2 3.5 - 5.1 12/29 [facility] CHEM PANEL Chloride Lvl 104 95 - 109 12/29 [facility] CHEM PANEL CO2 25 24 - 32 12/[address] CHEM PANEL Calcium Lvl 8.8 8.5 - 10.5 12/29 [facility] as [facility] CHEM PANEL AGAP 12.2 10.0 - 12/29 [facility] 20.0 [facility] CHEM PANEL B/C Ratio 11 6 - 25 12/29 [facility]2019 [facility] CHEM PANEL eGFR 103 12/29 Result Comment: The Medical eGFR is Center calculated using the CKD-EPI formula. In most young, healthy individuals the eGFR will be >90 mL/min/1.73m2 . The eGFR declines with age. An eGFR of 60-89 may be normal in some populations, particularly the elderly, for whom the CKD-EPI formula has not been extensively validated. Use of the eGFR is not recommended in the following populations:< br/>
Rupali viduals with unstable creatinine concentration s, including patients and those with serious co-morbid conditions.<b r/>
Patie nts with extremes in muscle mass or diet.

The data above are obtained from the National Kidney Disease Education Program (NKDEP) which additionally recommends that when the eGFR is used in patients with extremes of body mass index for purposes of drug dosing, the eGFR should be multiplied by the estimated BMI. CHEM PANEL ALT 28 0 - 65 12/[address] CHEM PANEL Albumin Lvl 3.6 3.5 - 5.0 12/[address] CHEM PANEL Alk Phos 44 39 - 136 12/[address] CHEM PANEL Bili Total 0.6 0.2 - 1.3 12/[address] CHEM PANEL Total Protein 7.1 6.4 - 8.4 12/[place] [address] CHEM PANEL AST 20 0 - 37 12/[address] CHEM PANEL Globulin 3.5 2.7 - 4.2 12/[address] CHEM PANEL A/G Ratio 1.0 0.7 - 1.6 12/[address] HEMATOLOGY PTT 30.4 22.9 - 12/29 [place] 35.[address] HEMATOLOGY WBC 7.0 3.7 - 10.4 12/[address] HEMATOLOGY RBC 4.50 4.70 - 12/29 [place] 6.[address] HEMATOLOGY Hgb 14.4 14.0 - 12/29 [place] 18.[address] HEMATOLOGY Hct 41.4 42.0 - 12/29 [place] 54.0 2019 [facility] HEMATOLOGY MCV 92.1 80.0 - 12/29 [place] 94.[address] HEMATOLOGY MCH 32.0 27.0 - 12/29 [place] 31.0 2019 [facility] HEMATOLOGY MCHC 34.8 32.0 - 12/29 [place] 36.[address] HEMATOLOGY RDW 13.7 11.5 - 12/29 [place] 14.5 /2019 [facility] HEMATOLOGY Platelet 203 133 - 450 12/[address] HEMATOLOGY MPV 9.5 7.4 - 10.4 12/[address] HEMATOLOGY Segs 49.7 45.0 - 12/29 [place] 75.[address] HEMATOLOGY Lymphocytes 33.2 20.0 - 12/29 [place] 40.[address] HEMATOLOGY Monocytes 9.0 2.0 - 12.0 12/[address] HEMATOLOGY Eosinophils 7.0 0.0 - 4.0 12/[address] HEMATOLOGY Basophils 1.1 0.0 - 1.0 12/[address] HEMATOLOGY Neutrophils # 3.5 1.5 - 8.1 12/[address] HEMATOLOGY Lymphocytes # 2.3 1.0 - 5.5 12/[address] HEMATOLOGY Monocytes # 0.6 0.0 - 0.8 12/[address] HEMATOLOGY Eosinophils # 0.5 0.0 - 0.5 12/[address] HEMATOLOGY Basophils # 0.1 0.0 - 0.2 12/[address] LIPIDS Trig 88 <=149 12/29 [facility] mg/dL [address] LIPIDS Chol 142 <=199 12/29 [facility] mg/dL [address] [place] [address] LIPIDS HDL 43 >=61 mg/dL 12/[address] LIPIDS CHD Risk 3.30 4.00 - 12/29 [facility] 7.30 [facility] LIPIDS LDL 81 <=99 mg/dL 12/29 [facility] (Calculated) [address] LIPIDS VLDL 18 12/[address] PARATHYROID Ca Ion WB 1.12 1.05 - 12/29 [facility] PROFILE [address]. [address] PARATHYROID Ca Norm WB 1.09 1.05 - 12/29 [facility] PROFILE 1. 2019 [facility] SPECIAL Hgb A1C 5.5 <=5.6 % 12/29 [facility] CHEMISTRY [address] IMMUNOLOGY Coronavirus Not Detected Not 12/26 [facility] (COVID-19) *NA* Detected /2019 Medical RAFAEL (12/27/19 11:15 AM) [facility] CHEM PANEL Glucose Lvl 120 65 - 99 08/30 Result Comment: Medical
Group Fasting reference interval

For someone without known diabetes, a glucose value
bet ween 100 and 125 mg/dL is consistent with
p rediabetes and should be confirmed with a
follow- up test.

Lab test performed by:
[email or web address]
[address]
[place] [id number]
[facility] CHEM PANEL BUN 21 7 - 25 08/30 Medical Group CHEM PANEL Creatinine 1.16 0.60 - 08/30 MH Lvl 1.35 /2019 Medical Group CHEM PANEL eGFR NON-AFR. 82 > OR = 60 08/30 [facility] mL/min/1.7 /2019 Medical 3m2 Group CHEM PANEL eGFR 95 > OR = 60 08/30 [place] mL/min/1.7 /2019 Medical 3m2 Group CHEM PANEL B/C Ratio NOT 6 - 22 08/30 APPLICABLE /2019 Medical Group CHEM PANEL Sodium Lvl 139 135 - 146 08/30 [facility] CHEM PANEL Potassium Lvl 4.1 3.5 - 5.3 08/30 [facility] Group CHEM PANEL Chloride Lvl 107 98 - 110 08/30 [facility] CHEM PANEL CO2 26 20 - 32 08/30 [facility] Group CHEM PANEL Calcium Lvl 9.0 8.6 - 10.3 08/30 [facility] CHEM PANEL Total Protein 5.9 6.1 - 8.1 08/30 [facility] Group CHEM PANEL Albumin Lvl 3.8 3.6 - 5.1 08/30 [facility] CHEM PANEL Globulin 2.1 1.9 - 3.7 08/30 [facility] Group CHEM PANEL A/G Ratio 1.8 1.0 - 2.5 08/30 [facility] CHEM PANEL Bili Total 0.8 0.2 - 1.2 08/30 [facility] Group CHEM PANEL Alk Phos 47 36 - 130 08/30 [facility] CHEM PANEL ASPARTATE 21 10 - 40 08/30 TRANSAMINASE Medical Group CHEM PANEL ALANINE 43 9 - 46 08/30 [facility]INOTRANSFER Medical ASE Group HEMATOLOGY WBC X 10x3 7.0 3.8 - 10.8 08/30 Result Comment: Medical
Lab Group test performed by:
[email or web address]
[address]
[place] [address]
[facility] HEMATOLOGY RBC X 10x6 4.46 4.20 - 08/30 5.80 /2019 Medical Group HEMATOLOGY Hgb 14.2 13.2 - 08/30 MH 17.1 [facility] HEMATOLOGY Hct 41.2 38.5 - 08/30 50.0 [facility] HEMATOLOGY MCV 92.4 80.0 - 08/30 100.0 [facility] HEMATOLOGY MCH 31.8 27.0 - 08/30 33.0 [facility] HEMATOLOGY MCHC 34.5 32.0 - 08/30 36.0 [facility] HEMATOLOGY RDW 13.0 11.0 - 08/30 15.0 [facility] HEMATOLOGY Platelet 191 140 - 400 08/30 [facility] HEMATOLOGY MPV 13.0 7.5 - 12.5 08/30 [facility] HEMATOLOGY Neutrophils # [id number] 1500 - 08/30 7800 [facility] HEMATOLOGY Lymphocytes # 1491 850 - 3900 08/30 [facility] HEMATOLOGY Monocytes # 469 200 - 950 08/30 [facility] HEMATOLOGY Eosinophils # 210 15 - 500 08/30 [facility] HEMATOLOGY Basophils # 63 0 - 200 08/30 [facility] HEMATOLOGY Segs 68.1 08/30 [facility] HEMATOLOGY Lymphocytes 21.3 08/30 [facility] HEMATOLOGY Monocytes 6.7 08/30 [facility] HEMATOLOGY Eosinophils 3.0 08/30 [facility] HEMATOLOGY Basophils 0.9 08/30 [facility] Pathology Reports No Data Provided for This Section Diagnostic Reports Report Value Date Source Chest 2 views DX EXAM: XR CHEST 2 VIEWS 12/31/2019 [facility] DATE: 12/31/2019 3:00 AM CDT Cent er INDICATION: Line Placement - Status post PPM/ICD Implantation COMPARISON: Chest x-ray dated 12/30/2019 TECHNIQUE: PA and lateral views of the chest IMPRESSION: Lines, tubes and hardware: M onitor leads overlie the patient. Left chest wall automatic implantable cardiac defibrillator with the leads superimposing over the right atrium and right ventricle and coronary sinus. Lungs and pleura: Pulmonary vascularity is normal. The lungs are clear. The costophrenic sulci are sharp without effusion. No pneumothorax is identified. Heart and mediastinum: Mild cardiomegaly . The mediastinal contours are normal. Bones and soft tissues: No acute abnormality. Chest 1 v for EXAM: AP VIEW OF THE CHEST 12/30/2019 [facility] DX DATE: 12/30/2019 7:16 PM CDT [facility] er INDICATION: Line Placement - Status post PPM/ICD Implantation COMPARISON: CXR 12/30/2019 at 0506 hours TECHNIQUE: Single frontal view of the chest. FINDINGS: Lines and Tubes: Left chest wall AICD with ca rdiac leads that project over the right atrium, right ventricle and coronary sinus. Overlying electrocardiogram leads. The visualized bones, soft tissues and cardiac s ilhouette are unchanged. IMPRESSION: * Left chest wall AICD as d etailed. No definite pneumothorax in the semiupright radiograph. * Slight low lung volumes w ith accentuated vascular markings and bibasilar atelectasis. * No pleural effusions. Chest 2 views DX EXAM: XR CHEST 2 VIEWS 12/30/2019 [facility] DATE: 12/30/2019 3:00 CDT Center INDICATION: Heart failure - Hx of HFrEF COMPARISON: None. TECHNIQUE: PA and lateral chest radiographs. FINDINGS: Lines, tubes and hardware: Monitor leads overlie the patient. Lungs and pleura: Pulmonary vascularity is normal. The lungs are clear. The costophrenic sulci are sharp without effusion. No pneumothorax is identified. Heart and mediastinum: Cardiomegaly. The mediast inal contours are normal. Bones and soft tissues: No acute abnormality. IMPRESSION: Cardiomegaly without radiographic evidence to liu ggest acute volume overload. Consultation Notes No Data Provided for This Section Discharge Summaries No Data Provided for This Section History and Physicals No Data Provided for This Section Vital Signs Vital Sign Value Date Comments Source Systolic (mm Hg) 116 01/03/2020 [facility] Diastolic (mm Hg) 77 01/03/2020 [facility] Heart Rate 98 01/03/2020 [facility] Respitory Rate 16 01/03/2020 [facility] Temperature Oral (F) 98.4 F 01/03/2020 [facility] Height 177.8 cm 01/03/2020 [facility] Weight 102.182 01/03/2020 [facility] BMI Calculated 32.32 01/03/2020 [facility] Systolic (mm Hg) 103 12/31/2019 [facility] Center Diastolic (mm Hg) 59 12/31/2019 [facility] Systolic (mm Hg) 96 12/31/2019 [facility] Center Diastolic (mm Hg) 52 12/31/2019 [facility] Systolic (mm Hg) 93 12/31/2019 [facility] Diastolic (mm Hg) 57 12/31/2019 [facility] Temperature Oral (F) 98.6 F 12/31/2019 [facility] Respitory Rate 55 12/31/2019 [facility] Temperature Oral (F) 97.7 F 12/31/2019 [facility] Temperature Oral (F) 99.0 F 12/31/2019 [facility] Respitory Rate 21 12/31/2019 [facility] Respitory Rate 27 12/31/2019 [facility] Height 177.8 cm 12/30/2019 [facility] Weight 99.2 12/30/2019 [facility] BMI Calculated 31.38 12/30/2019 [facility] Height 177.8 cm 12/23/2019 [facility] Weight 100 12/23/2019 [facility] BMI Calculated 31.63 12/23/2019 [facility] Systolic (mm Hg) 91 09/14/2019 [facility] [...] oup Temperature Oral (F) 98.1 F 08/31/2019 [facility] Height 177.8 cm 08/31/2019 [facility] Weight 110.455 08/31/2019 [facility] BMI Calculated 34.94 08/31/2019 [facility] Encounters Location Location Encounter Encounter Reason Attending ADM AR Stat us Source Details Type Number For Provider Date Date Visit Outpatient [id number] 08/30 [facility] N[facility]el [facility] Outpatient [id number] Dinora 08/30 08/31 [facility] /[facility] Phone [id number] 08/30 09/01 Primary Message /2019 [facility] Between [id number] 08/31 09/01 Primary Visit /2019 [facility] Outpatient [id number] 09/13 Active [facility] [id number] Dinora 09/13 09/14 [facility] /2019 [facility] Inpatient [id number] Mohammad 12/29 12/30 [facility] Madjid /2019 [facility] [id number] Khashayar 12/29 12/29 [facility] Hematpour /2019 [facility] Outpatient [id number] 01/02 Active [facility] Outpatient [id number] 01/02 Primary Nam /2019 [facility] Procedures Procedure Code Date Perfomer Comments Source ICD - Internal [id number] 12/30/2019 [facility] defibrillator procedure Implantation of [id number] 12/30/2019 [facility] cardiac pacemaker system Assessment and Plan Assessment and Plan Date Source Extracted from:Title: [facility] Progress Note 12/31/2019 [facility] Author: Marbin Figueredo MD Date: 12/31/[address] [facility] Progress Note Overnight Events: 34 y/o man, recently d iagnosed with advanced dilated CM, probably related with Etoh use. Admitted in the setting of chest pain.s/p AICD implantation 12/30/19 Review of Systems Constitutional: Negative. Respiratory: Negative. Cardiovascular: Negative. Gastrointestinal: Negative. Neurologic: Negative. Vitals Tmp(F) Pulse BP RR SpO2 FIO2 12/30 12:00 ---- 75 103/59 -- 98 --- 12/30 11:00 ---- 78 96/52 -- 96 --- 12/30 10:00 ---- 83 93/57 -- 97 --- 12/30 09:00 ---- 70 97/59 -- 97 --- 12/30 08:00 98.6 77 103/59 -- 96 --- 24 Hr Tmax: 99.0F (37.22c) at 12/30 00:2 7 Vital Signs are the last 5 in the past 48 hours. I&O Record In Out Bal 12/30 24hr Tot 250 0 250 12/29 24hr Tot 702 0 702 12/31/2019 12:00 SpO2 percent 98 Physical Exam Gen: alert and oriented Neuro:No focal deficits appreciated HEENT:Pupils equal and reactive bilaterally. anicteric CV/Pulses:Regular rate and rhythm. No mu rmurs. Pitting edema bilaterally. 2+ radial anddppulses Pulm:Decreased breath sounds at the bases GI:Soft,nondistended, +BS :Deferred MS:Tone intact Skin:warm and dry. No jaundice. Labs (Last four charted values) WBC 8.1 (DEC 30) 7.5 (DEC 29) 7.0 (DEC 28) Hgb 14.1 (DEC 30) 14.4 (DEC 29) 14.4 (DEC 24) Hct L 40.3 (SEP 2 6) 42.0 (SEP ) L 41.4 (SEP 24) Plt 194 (DEC 30) 185 (SEP 25) 203 (SEP 24) Na 137 (DEC 30) 137 (SEP ) 137 (SEP 24) K 3.8 (DEC 30) 3.7 (SEP ) 4.2 (SEP 24) CO2 28 (DEC 30) 26 (SEP ) 25 (SEP 24) Cl 104 (DEC 30) 106 (SEP ) 104 (DEC 24) Cr 1.32 (DEC 30) 1.05 (DEC 29) 0.96 (DEC 24) BUN 20 (DEC 30) 15 (SEP 25) 11 (SEP 24) Glucose Random 95 (DEC 30) 85 (SEP ) 82 (SEP 24) Mg 2.0 (DEC 30) 2.2 (DEC 29) 2.0 (DEC 28) Phos H 5.2 (DEC 30) 4.1 (S EP 25) 4.2 (DEC 24) Ca L 8.3 (DEC 30) 8.6 (S EP 25) 8.8 (DEC 24) PT 14.1 (DEC 30) 13.9 (DEC 29) INR 1.09 (DEC 30) 1.07 (DEC 29) PTT 30.6 (SEP ) 27.8 (SEP 25) 30.4 (SEP 24) Troponin <0.02 (SEP 25) <0.02 (SEP 2 4) Medications (2) Active Scheduled Meds: None Unscheduled Meds: None PRN Meds: None One Time Meds (2): 12/30/19 (Completed) diazepam 5 mg PO ONCE 12/30/19 (Completed) hydromorphone (Dilaudid) 1 mg IVP ONCE Continuous Infusions: None Imaging Studies (last 36 hours) Chest 1 v for Placement DX 12/30/2019 19:45 Impression: * Left chest wall AICD as detailed. No definite pneumothorax in the semiupright radiograph. * Slight low lung volumes with accentua bridger vascular markings and bibasilar atelectasis. * No pleural effusions. Chest 2 views DX 12/30/2019 08:40 Impression: Cardiomegaly without radiographic evidence to suggest acute volume overload. Assessment and plan Problem List: - Unstable angina - Decompensated HFrEF, NYHA class 4, EF 20-30% s/p AICD plac ement - NICM 2/2 ETOH abuse - V tach on Life vest Neuro/Psych: - No acute issues - Pain control with Tylenol prn CV: - Monitor hemodynamics. BP soft. Holding Entresto - EKG with no acute changes. Troponins negative - [facility] August 2019 showing clean coronaries - s/p AICD 12/29 Resp: - Stable on room air - Duonebs prn - IS/VEP - Flu vaccine if not yet received GI/Nutrition: - Heart diet - Bowel regimen Renal/Electrolytes: - Monitor UOP with strict I's/O's - Trend BUN/cr - Avoid nephrotoxic agents - Replace electrolytes as needed Endo: - FSBG, SSI if needed Heme/Onc: - Monitor for bleeding and coagulopathies - Transfuse if indicated ID: - No s/s infection - Monitor Msk/Skin/Deconditioned: - Cont wound care and sacral decubitus prevention - Consult PT/OT when ready Prophylaxis: - DVT ppx: Heparin - GI ppx: None Plan for D/c to home today. D/w Dr. Wilde who is in agreement with the plan Marbin Figueredo MD Pager-[phone] PGY-4 Pulmonary, Critical Care and Sleep Medicine Extracted from:Title: Discharge Summary * Author: Tony Avendaño MD Date: 12/31/19 Discharge Information Discharge Summary Information Discharge Plan Discharge Summary Plan Discharge Status: improved. Discharge instructions given: to patient. Discharge disposition[facility] Prescriptions: written and given to patient. Diagnosis Acute HFrEF (heart failure with reduced ejection fraction) ([id number] I50.21, Working, Medical). Course Improving. Education and Follow-up Counseled: patient. Extracted from:Title: CCU History and Physical Author: Dominic Rodriguez MD Date: 12/29/19 Mr. Medina is a 34 y.o M with a hx of NI CM (EF 30% per patient, NYHA class II- III) who presents as a transfer from an OSH ED for chest pain and SOB x1 day. Neuro - AAOx4 - No active issues CV #Chest pain Unclear etiology. Potentially related to NICM? Given previous normal LHC,patient age, and initial negative trop do not suspect ACS currently. No evidence of pericarditis currently. MSK possible butlesslikelygiven exam non-focal exam. - Trop/EKG ordered x2 (3 total with one from OSH) - 2-view CXR sent - Basic labs sent (CMP, CBC, mag/phos) - A1c and lipid panel pending #NICM (EF 30% per patient, NYHA class II-III) Unclear etiology.Likely alcohol related with his history. Could also be genetic but given no family history it is less likely. Patient with planned BiV ICD placement. Unclear reason why patient not on B B but likely related to BPs. Pro-BNP at OSH slightly elevated but not enough for me to be worried about exacerbation especially with normal exam. - Holding home entresto d/t soft BPs (took home doses) - BNP pending - 2-view CXR ordered - TTE sent - planned BiV ICD placement tomorrow - Strict I&Os, daily weights - Salt (<2g/day) and fluid restriction (<2 L/day) Pulm - Currently saturatingwell on ambient air - No active issues GI - No active issues FEN/Renal - No active issues Heme - Hgb WNL with no evidence of active bleeding - Will transfuse to keeg Hgb>7 - No active issues Endo - TSHpending - No active issues ID - No active issues MSK - No active issues Patient to seen and discussed with attending physician, Dr. Coates. Dominic Rodriguez M.D. PGY-2, Internal Medicine [facility] DVT: SCD, holding pharmacologic d/t planned procedure GI: None indicated Bowel: Miralax qdaily PRN Diet: Heart healthy, NPO at midnight Pain: Tylenol PRN Pending clinical work-up and management Addendum by Kenisha Coates MD on 12/30/2019 14:23 CDT Cardiology Attending Attestation I have seen and examined the patient. Fu rthermore, I have reviewed the resident's/fellow's note dated today, and I agree with the assessment and plan. I have personally reviewed the laboratory results, radiology results, and tracings. Extracted from:Title: [facility] consult note Author: Ivone Stroud NP Date: 12/29/19 Impression and Plan Problem List: Unstable angina r/o ACS HFrEF, functional class: NYHA class 4, (EF 30% 08/2019 at OSH per patient) Nonischemic cardiomyopathy likely 2/2 alcoholism or genetic ?h/o V tach on LifeVest, pending AICD implantation Previous tobacco dependence (<1ppd for 10 yrs, quit 10 yrs a go) Previous Alcohol use disorder ( Beer/Whi desire 2-6 drinks/day for 15 yrs, quit in August 2019) Assessment and Plan: Neuro: - AAOx4 - No active pain CV: - Unstable angina r/o ACS, troponin nebx1 at OSH -EKG-NSR with no acute changes -HFrEF, functional class: NYHA class 4 ( EF 30% 08/2019 at OSH per patient) , Pro- BNP at OSH 325 -Patient was off Lasix for last 2 weeks, 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 and asked him to watch his weight -?Non ischemic cardiomyopathy likely 2/2 alcoholism or jorge alberto ic -Per patient, he had clean coronaries per [facility] in August 2019 at OSH -TTE pending -h/o ?V tach, he has a LifeVest for last 1-2 months, was supposed to come tomorrow for scheduled AICD implantation, possible AICD in am -Close hemodynamic monitoring -Further care by primary team Resp: - Breathing comfortably on room air - Continue incentive spirometry/VEP -CXR pending GI/Nutrition: - NPO post midnight - No GI issues, PPI ppx not currently indicated Renal/Electrolytes: - Monitor I and O closely -Creatinine at OSH 0.97 Endo: - Blood glucose 107 at OSH - Check glucose, SSI if needed Heme/Onc: - H/H 15/43 at OSH, continue trending ID: - No evidence of infection at the moment, afebrile, WBC 6.6 at OSH - Check cultures if any fever spike Prophylaxis: - GI ppx-Not indicated - DVT ppx-SCD/BRIDGER sagare Code status: FULL Disposition: CCU Plan discussed with [facility] P[facility]M fellow Dr. Sorto and attending Dr. Degroot Plan of Care No Data Provided for This Section Social History Social History Date Source Social History TypeResponse 12/30/2019 [facility] Smoking Status Former smoker; Type: Cigarettes; Exposur e to Tobacco Smoke None; Cigarette Smoking Last 365 Days Yes; Reg Smoking Cessation Counseling Yes; Other Tobacco Frequency now uses chewing tobacco; entered on: 12/30/19 Social History TypeResponse 08/31/2019 [facility] Alcohol Current, Type Beer. Frequency: 3-5 time s per week. Previous treatment: None. Alcohol use interferes with work or home: No. Drinks more than intended: No. Others hurt by drinking: No. Ready to change: No. Household alcohol concerns: No. Employment/School Status: Employed. 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 Substance Abuse Use: Past. Smoking Status Current every day smoker; Type: Chewing tobacco; Exposure to Tobacco Smoke None; Cigarette Smoking Last 365 Days No; Reg Smoking Cessation Counseling No entered on: 01/03/20 Family History No Data Provided for This Section Advance Directives No Data Provided for This Section Functional Status No Data Provided for This Section
--- OUTSIDE RECORDS SUMMARY | 2020-05-13 16:07 | XMS REPORT | Continuity of Care Document ---
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 [facility] CARDIOMYOP Diagnosis Active 2019-12-30 Memoria ATHY 12-28 09:41:00 l 00:00: [place] CARDIOMYOP 00 ATHY Active 12/29/2019 [facility] CCL / BI-V Diagnosis Active 2020-02-22 Memoria ICD W/ 12-18 07:40:00 l ADAMS CCL / 00:00: [place] BI-V ICD 00 W/ [facility] Active 12/19/2019 [facility] Atypical Problem Active 2019-09-04 Mem oria chest pain 21:23:13 l (finding) Atypical Her cisneros chest pain (finding) Active Problem 09/04/2019 [facility] Dyspnea Problem Active 2020-01-06 Ron unique (finding) 01:01:29 l Dyspnea [place] (finding) Active Problem 01/06/2020 [facility] Generalize Problem Active 2019-09-04 M emoria d anxiety 21:23:13 l disorder Nabeel (disorder) Generalize d anxiety disorder (disorder) Active Problem 09/04/2019 [facility] Simple Problem Active 2020-01-06 Memor ia obesity 01:01:29 l (disorder) Simple Herm sanam obesity (disorder) Active Problem 01/06/2020 [facility] Sinus Problem Active 2019-09-04 Memor ia tachycardi 21:23:13 l a Sinus Nabeel (finding) tachycardi a (finding) Active Problem 09/04/2019 [facility] Ventricula Problem Active 2020-01-06 M emoria r 01:01:29 l premature Nabeel beats Ventricula (disorder) r premature beats (disorder) Active Problem 01/06/2020 [facility] Calculus Problem Active 2020-01-06 Mem oria in biliary 01:01:29 l tract Calculus Alex n (disorder) in biliary tract (disorder) Active Problem 01/06/2020 [facility] Congestive Problem Active 2020-01-06 M emoria heart 01:01:29 l failure [place] (disorder) Congestive heart failure (disorder) Active Problem 01/06/2020 [facility] Impaired Problem Active 2020-01-06 Mem oria fasting 01:01:29 l glycaemia Impaired Her cisneros (disorder) fasting glycaemia (disorder) Active Problem 01/06/2020 [facility] Sleep Problem Active 2020-01-06 Memor ia apnea 01:01:29 l (finding) Sleep Alex n apnea (finding) Active Problem 01/06/2020 [facility] Anxiety Problem Active 2020-01-06 Ron unique disorder 01:01:29 l (disorder) Anxiety Her cisneros disorder (disorder) Active Problem 01/06/2020 [facility] Cardiomyop Problem Active 2020-01-06 M emoria athy 01:01:29 l (disorder) Alex n Cardiomyop athy (disorder) Active Problem 01/06/2020 [facility] Allergies, Adverse Reactions, Alerts Allergy Allergy Status Severity Reaction(s) Onset Inactive Treating Comm ents Source Name Type Date Date Clinician sulfa sulfa Active Memoria drugs drugs gayla Lees Social History Social Habit Start Date Stop Date Quantity Comments Source Social History 2019-08-31 2019-08-31 Chiquis ingram 13:28:15 13:28:15 Smoking Status Start Date Stop Date Source Social History 2019-12-30 16:33:17 2019-12-30 16:33:17 Chiquis Lees Medications Ordered Filled Start Stop Current Ordering Indication Dosage Frequency Signature Comments Components Source Medication Medication Date Date Medication? Clinician (SIG) Name Name citalopram Yes 20 mg = 1 Me moria 20 mg oral 01-02 tab, PO, l tablet 20:53: Daily, # [place] 00 90 tab, 0 Refill(s), Pharmacy: [id number], 177.8, cm, 01/03/20 15:26:00 CDT, Height, 102.182, kg, 01/03/20 15:26:00 CDT, Weight sacubitril Yes 1 tab, PO, M emoria 24 MG / 01-02 BID, # 56 l valsartan 20:30: tab, 0 Alex n 26 MG Oral 00 Refill(s) Tablet [Entresto] Acetaminoph Yes 1 tab, PO, Memoria en 300 MG / 12-30 Q6H, PRN l Codeine 17:55: Pain, not Rosario nn Phosphate 00 to exceed 30 MG Oral 3000 mg Tablet acetaminop [Tylenol hen per with day, X 7 Codeine #3] day, # 28 tab, 0 Refill(s), called to pharmacy metoprolol Yes 12.5 mg = Me moria 25 mg oral 12-30 0.5 tab, l tablet, 17:55: PO, Daily, Herm sanam extended 00 Please release take half tab daily, # 15 tab, 1 Refill(s) Docusate Yes 1 tab, PO, Mem oria Sodium 50 9-26 Daily, X l MG / 17:51: 10 day, # Nabeel sennosides, 00 10 tab, 0 INTERMEDIATE 8.6 MG Refill(s), Oral Tablet called to pharmacy Docusate No 1 tab, PO, Mem oria Sodium 50 9-26 Daily, X l MG / 17:45: 10 day, # [place] sennosides, 00 10 tab, 0 INTERMEDIATE 8.6 MG Refill(s), Oral Tablet called to pharmacy Acetaminoph No 1 tab, PO, Memoria en 300 MG / 12-30 Q6H, PRN l Codeine 17:45: Pain, not Rosario nn Phosphate 00 to exceed 30 MG Oral 3000 mg Tablet acetaminop [Tylenol hen per with day, X 7 Codeine #3] day, # 28 tab, 0 Refill(s), called to pharmacy metoprolol No 25 mg = 1 Me moria 25 mg oral 12-30 tab, PO, l tablet, 17:18: Daily, # Alex n extended 00 30 tab, 1 release Refill(s) Acetaminoph No 1,000 mg = Memoria en 500 MG 12-30 2 tab, PO, l Oral Tablet 15:40: Q6H, PRN He rm 00 Pain Score 1-3, X 7 day, # 14 tab, 0 Refill(s) minocycline Yes 100 mg = 1 Memoria 100 mg oral 12-30 cap, PO, l capsule 15:40: [id number], Alex n 00 Please take 5 more days of antibiotic s. 1 pill two time daily., X 5 day, # 10 cap, 0 Refill(s) sacubitril Yes 1 tab, PO, M emoria 24 MG / 12-30 BID, # 60 l valsartan 15:40: tab, 2 Alex n 26 MG Oral 00 Refill(s) Tablet Zofran No Notes: Memoria 12-30 (Same as: l 09:42: Zofran) Nabeel 00 MEDICATION WASTE Product Size: 4 mg Product Wasted: ___ mg Acetaminoph Yes Notes: Max Memoria en 12-30 acetaminop l 05:00: hen 4000 Nabeel 00 mg/day (4 gm/day). (Same as: Tylenol Extra Strength) Dilaudid No Notes: Memoria 12-30 Same as l 03:29: Dilaudid [place] 00 Entresto 24 No Notes: Ron unique mg-26 mg 12-30 (Same as: l oral tablet 01:37: Entresto) H erm Avoid in patients with history of angioedema due to ELZBIETA inhibitor or ARB therapy. Do not use concomitan tly or within 36 hours of ELZBIETA inhibitors Minocycline No Notes: Ron unique - (Same l 01:00: as:Minocin ) No milk/antac ids/iron. Diazepam No Notes: Memoria 9-25 (Same as: l 20:03: Valium) Aspirin 2019-0 No 81 mg, 1 Memori a -25 tab, l 14:00: Route: Nabeel CHEW, Drug form: CHEWTAB, Daily, Dosing Weight 99.2, kg, Start date: 12/30/19 9:00:00 CDT, Duration: 30 day, Stop date: 01/28/20 9:00:00 CDT Docusate 2019-0 No Notes: Memoria Sodium 50 12-29 (Same as l MG / 14:00: Senokot-S) Nabeel sennosides, 00 Equiv. to INTERMEDIATE 8.6 MG Monet-Colac Oral Tablet e. sacubitril No Notes: Memor ia 24 MG / 12-29 (Same as: l valsartan 14:00: Entresto) Her cisneros 26 MG Oral 00 Avoid in Tablet patients [Entresto] with history of angioedema due to ELZBIETA inhibitor or ARB therapy. Do not use concomitan tly or within 36 hours of ELZBIETA inhibitors sacubitril 0 No 1 tab, Memor ia 49 MG / 12-29 Route: PO, l valsartan 14:00: Drug Form: Deion rmann 51 MG Oral 00 TAB, Tablet Dosing [Entresto] Weight 99.2, kg, BID, Start date: 12/30/19 9:00:00 CDT, Duration: 30 day, Stop date: 01/28/20 17:00:00 CDT heparin 2019-0 No Notes: Memoria - porcine l 13:00: heparin Miralax 2019-0 No Notes: Memoria -25 Dissolve l 03:46: in 8 oz of water or juice. (Same as: Miralax) sacubitril 2019-0 No 1 tab, PO, M emoria 49 MG / - BID, # 28 l valsartan 02:20: tab, 0 Alex n 51 MG Oral 00 Refill(s) Tablet [Entresto] Adult No 81 mg = 1 Memoria Aspirin 81 9-25 tab, CHEW, l mg oral 02:20: Daily, 0 Alex n tablet, 00 Refill(s) chewable Acetaminoph 2020-0 No Notes: Do M emoria en 12-29 not exceed l 02:15: 4 gm/day. Nabeel (Same as: Tylenol) Potassium No Notes: Memori a Chloride 12-29 (Same as: l 02:15: KCL) Infuse no faster than 10 mEq/hr if given peripheral ly. sodium No Notes: Memoria phosphate 12-29 Infuse l 02:15: over 4 [place] 00 hour. Do not infuse phosphorou s concurrent ly in the same line as TPN or IVF that contains calcium. For double lumen central lines, phosphorou s may be infused in a separate lumen from TPN. potassium 2019- No Notes: Memori a phosphate 12-29 (Same as: l 02:15: K Nabeel 00 Phosphate) Infuse over 4 hour. Do not infuse phosphorou s concurrent ly in the same line as TPN or IVF that contains calcium. For double lumen central lines, phosphorou s may be infused in a separate lumen from TPN. potassium No Notes: Memori a phosphate-s 12-29 (Same as: l odium 02:15: Phos-NaK) phosphate 00 Each 1.5 250 mg-280 gm pkt has mg-160 mg 250mg oral powder phosphorou for s. Mix reconstitut w/2.5oz ion water and stir. Magnesium No Notes: Memori a Sulfate 12-29 WASTE: F/P l 02:15: - Sink; E Nabeel 00 - Municipal Trash Bin Magnesium 2019-0 No Notes: Memori a Oxide 12-29 (Same as: l 02:15: Mag-Ox [place] 00 400) Magnesium oxide [id number] g elemental magnesium Dose=____m g magnesium oxide (___mg elemental magnesium) Calcium 2019-0 No Notes: Memoria Gluconate 12-29 WASTE: F/P l 02:15: - Sink; E Nabeel - Municipal Trash Bin Calcium 0 No Notes: Memoria Carbonate 12-29 (Same As: l 500 MG 02:15: Tums) Nabeel Chewable 00 Calcium Tablet Carbonate 500 mg = 200 mg elemental calcium Dose = mg calcium carbonate ( mg elemental calcium) Aspirin 81 2019-0 Yes 81 mg = 1 Me moria MG Enteric 6-10 tab, PO, l Coated 16:19: Daily, # [place] Tablet 00 90 tab, 3 Refill(s) Aspirin 2020-0 No 0 Memoria 6-10 Refill(s) l 16:16: [place] 00 carvedilol 2020-0 Yes 3.125 mg = M emoria 3.13 MG 6-10 1 tab, PO, l Oral Tablet 16:16: BID, # 60 H ermann [Coreg] 00 tab, 3 Refill(s) Furosemide 2020-0 Yes 40 mg = 1 Me moria 40 MG Oral 6-10 tab, PO, l Tablet 16:16: Daily, # Nabeel [Lasix] 00 90 tab, 3 Refill(s) lisinopril 2020-0 Yes 5 mg = 1 Mem oria 5 mg oral 6-10 tab, PO, l tablet 16:16: Daily, # Nabeel 00 90 tab, 3 Refill(s) Hydroxyzine 2019-0 Yes 25 mg = 1 M emoria Hydrochlori 5-27 tab, PO, l de 25 MG 14:09: QID, PRN Rosario nn Oral Tablet 00 Anxiety, X 10 day, # 40 tab, 0 Refill(s), Pharmacy: [id number] Atenolol 25 2020-0 No 25 mg = 1 M emoria MG Oral 5-27 tab, PO, l Tablet 14:07: Daily, # [place] 00 30 tab, 1 Refill(s), Pharmacy: [facility] #[id number] Vital Signs Vital Name Observation Time Observation Value Comments Source Systolic (mm Hg) 2020-01-03 20:26:00 Ron Lees Diastolic (mm Hg) 2020-01-03 20:26:00 Rajan Lees Heart Rate 2020-01-03 20:26:00 [facility] 2020-01-03 20:26:00 Michael Dietrich Temperature Oral (F) 2020-01-03 20:26:00 98.4 F [facility] Height 2020-01-03 20:26:00 177.8 cm [facility] Weight 2020-01-03 20:26:00 [facility] BMI Calculated 2020-01-03 20:26:00 Michael Dietrich Systolic (mm Hg) 2019-12-31 17:00:00 Ron rial [place] Diastolic (mm Hg) 2019-12-31 17:00:00 Mem orial [place] Systolic (mm Hg) 2019-12-31 16:00:00 Ron rial Nabeel Diastolic (mm Hg) 2019-12-31 16:00:00 Mem orial [place] Systolic (mm Hg) 2019-12-31 15:00:00 Ron rial [place] Diastolic (mm Hg) 2019-12-31 15:00:00 Mem orial Nabeel Temperature Oral (F) 2019-12-31 13:00:00 98.6 F [facility] Respitory Rate 2019-12-31 10:00:00 Memori al Nabeel Temperature Oral (F) 2019-12-31 09:47:00 97.7 F [facility] Temperature Oral (F) 2019-12-31 05:27:00 99.0 F [facility] [place] Respitory Rate 2019-12-31 02:02:00 Memori al Nabeel Respitory Rate 2019-12-31 01:30:00 Memori al [place] Height 2019-12-30 01:30:00 177.8 cm [facility] Weight 2019-12-30 01:30:00 [facility] BMI Calculated 2019-12-30 01:30:00 Memori al [place] Height 2019-12-23 17:34:00 177.8 cm [facility] Weight 2019-12-23 17:34:00 [facility] [place] BMI Calculated 2019-12-23 17:34:00 Memori al [place] Systolic (mm Hg) 2019-09-14 16:15:00 Ron rial Nabeel Diastolic (mm Hg) 2019-09-14 16:15:00 Mem orial Nabeel Heart Rate 2019-09-14 16:15:00 [facility] Respitory Rate 2019-09-14 16:15:00 Memori al [place] Temperature Oral (F) 2019-09-14 16:15:00 97.4 F [facility] [place] Height 2019-09-14 16:15:00 177.8 cm [facility] [place] Weight 2019-09-14 16:15:00 [facility] [place] BMI Calculated 2019-09-14 16:15:00 Memori al [place] Systolic (mm Hg) 2019-08-31 13:25:00 Ron rial [place] Diastolic (mm Hg) 2019-08-31 13:25:00 Mem bebetobethanie [place] Heart Rate 2019-08-31 13:25:00 [facility] Respitory Rate 2019-08-31 13:25:00 Michael al [place] Temperature Oral (F) 2019-08-31 13:25:00 98.1 F Chiquis Lees Height 2019-08-31 13:25:00 177.8 cm Chiquis Lees Weight 2019-08-31 13:25:00 [facility] BMI Calculated 2019-08-31 13:25:00 Michael kovacs [place] Procedures Procedure Date / Time Performed Performing Clinician [facility] e ICD - Internal cardiac 2019-12-30 05:00:00 Samaria ial Nabeel defibrillator procedure Implantation of 2019-12-30 05:00:00 Chiquis cisneros biventricular cardiac pacemaker system Encounters Start End Encounter Admission Attending Care Care Encounter Source Date/Time Date/Time Type Type Clinicians Facility Department ID 2020-01-03 2020-01-03 Outpatient Cyril [facility] [id number] 15:30:00 23:59:59 Dinora 02 2019-12-29 2019-12-31 Outpatient Madjinavi [facility] [id number] 20:16:00 13:00:00 Mohammad 68 2019-12-30 2019-12-30 Outpatient Hematpour, [facility] [id number] 13:30:00 13:30:00 Khashayar 00 2019-12-27 2019-12-27 Outpatient [facility] 08:00:00 08:00:00 2019-09-14 2019-09-14 Outpatient Cyril [facility] [id number] 11:15:00 23:59:59 Dinora 01 2019-09-01 2019-09-02 Outpatient [facility] [id number] 10:59:17 10:59:17 01 2019-08-31 2019-09-01 Outpatient [facility] [id number] 14:36:05 23:59:59 00 2019-08-31 2019-08-31 Outpatient Cyril [facility] [id number] 08:30:00 23:59:59 Dinora 00 Results Test Description Test Time Test Comments Results Result Comments Source CHEM PANEL 2019-12-31 95 [facility] nn 05:24:00 CHEM PANEL 2019-12-31 20 [facility] [place] nn 05:24:00 CHEM PANEL 2019-12-31 1.32 [facility] [place] nn 05:24:00 CHEM PANEL 2019-12-31 137 [facility] [place] nn 05:24:00 CHEM PANEL 2019-12-31 3.8 [facility] [place] nn 05:24:00 CHEM PANEL 2019-12-31 104 [facility] [place] nn 05:24:00 CHEM PANEL 2019-12-31 28 [facility] [place] nn 05:24:00 CHEM PANEL 2019-12-31 8.3 [facility] [place] nn 05:24:00 CHEM PANEL 2019-12-31 8.8 [facility] [place] nn 05:24:00 CHEM PANEL 2019-12-31 05:24:00 Test Item Value Reference Range Interpretation Comme nts B/C Ratio (test code = B/C Ratio) 15 1 6-25 [facility] [id number] 05:24:0070[facility]annCHEM PANEL 2019-12-31 05:24:0026[facility]CHE[facility] KTDMV5912-94-92 05:24:003.4[facility]annCHE[facility] DRIQL4086-19-97 05:24:0043[facility]CHE[facility] AZGBJ2931-48-28 05:24:000.5[facility]CHE[facility] LYSPF5353-13-06 05:24:006.7[facility]annCHE[facility] [id number] 05:24:0019[facility]annCHE[facility] SMUMS8152-25-68 05:24:003.3 [facility] [id number] 05:24:00 Test Item Value Reference Range Interpretation Comments A/G Ratio (test code = A/G Ratio) 1.0 1 0.7-1.6 [facility] MFYVC8810-69-11 05:24:002.0[facility]annCHEM PANEL 2019-12-31 05:24:005.2[facility] CwesqynREALYUPFYK2465-18-90 05:24:008.1[facility] WwwiimqGPACVLKTOV4830-68-51 05:24:004.33[facility] JkaokjeLHKTFGFJYT8095-10-35 05:24:0014.1[facility] HnjfrrfKUAWMDJPYC7772-76-04 05:24:0040.3[facility] [place] BSQQFPRKYK9743-32-59 05:24:0093.1[facility] XjphgwnFBFJZQXKYG7668-19-37 05:24:00 Test Item Value Reference Range Interpretation Comments MCH (test code = MCH) 32.6 pg 27.0-31.0 [facility] VbvwwdsJLMMNSRGHK1637-37-95 05:24:0035.0[facility] HermannHEMATOLOGY 2019-12-31 05:24:0013.7[facility] KkftlryPAOCDEICFA5073-17-91 05:24:89658Sowsiope BhcninpRGQVYPCCOM6552-88-64 05:24:008.8[facility] YbugqcwYDNYEKGRZS7005-26-51 05:24:00 Test Item Value Reference Range Interpretation Comments PT (test code = PT) 14.1 s 12.0-14.7 [facility] TnepntaKOPBVMSNHK5424-40-31 05:24:00 Test Item Value Reference Range Interpretation Comments INR (test code = INR) 1.09 1 0.85-1.17 [facility] JzcoezrYCLWFZRPLL0285-46-16 05:24:00 Test Item Value Reference Range Interpretation Comments PTT (test code = PTT) 30.6 s 22.9-35.8 [facility] ZfyjytnRIAZOLZKUF9009-47-50 05:24:0061.5[facility] HermannHEMATOLOGY 2019-12-31 05:24:0022.9[facility] DrptvqqNMEUYHQFWT7937-04-22 05:24:0010.8[facility] LomvagqCURSTIPVRY2854-70-79 05:24:004.1[facility] MpyetdvONQOKJOAGV5403-32-15 05:24:000.7[facility] GfaaefmWOVJDDGHRB0600-78-79 05:24:005.0[facility] EXNFFKBHWE0866-74-07 05:24:001.9[facility] PmfsbpxWUWOAYURRW0207-93-13 05:24:000.9 [facility] XygkufyYISZFALZOI7235-18-92 05:24:000.3[facility] HermannHEMATOLOGY 2019-12-31 05:24:000.1[facility] HermannPARATHYROID IEEHKWZ3347-50-50 05:24:001.06 [facility] HermannPARATHYROID RPXMNQT1626-01-89 05:24:001.05[facility] BACTERIAL - TOYWLPSC3732-61-86 13:59:00Positive 1*ABN*(12/30/19 8:59 AM)[facility]annCHEM ERIHG8466-13-67 10:13:0085[facility]annCHEM CRVGQ7115-54-86 10:13:0015[facility]annCHEM UONFC8249-17-47 10:13:001.05[facility]annCHEM XQIQP1708-25-92 10:13:51317Rvtyvash HermannCHEM FLXVN6444-11-32 10:13:003.7 [facility]CHE[facility] LIQQC2754-34-52 10:13:46519Lrhofjxh HermannCHEM PANEL 2019-12-30 10:13:0026[facility]annCHEM QPABT8679-04-03 10:13:008.6[facility]annCHEM XYABI2268-95-26 10:13:008.7[facility]annCHEM NSHPG7828-78-01 10:13:0093[facility]annCHEM LAITK0728-65-00 10:13:002.2[facility]annCHEM MEXSH3021-27-77 10:13:004.1[facility] YouqlhsUDMUMTYAKX5266-91-54 10:13:0053.7 [facility] FkkojiwPFOEQPWMSP7355-90-14 10:13:0029.6[facility] HermannHEMATOLOGY 2019-12-30 10:13:008.9[facility] KzhcvumZSYMJNMBVL7031-85-06 10:13:006.8[facility] XnfqbchFYXRICFUEP7101-05-04 10:13:001.0[facility] TvppicbFUYKMYXUFJ9322-92-26 10:13:004.0[facility] AwowthfWNZFUEEWZX0835-51-36 10:13:002.2[facility] [place] YTXPOMSPFJ2990-38-06 10:13:000.7[facility] ZcwhwnxRAYCLIKLFI8305-88-05 10:13:000.5 [facility] ShaxiywUENZLZDISJ6719-90-83 10:13:000.1[facility] HermannHEMATOLOGY 2019-12-30 10:13:007.5[facility] MryvmqhKCRMMHPKZL1513-22-87 10:13:004.47[facility] RsztdpkJYUYFBOTRC2477-21-59 10:13:0014.4[facility] KgmfdkbNBOXUPTYNA3364-31-37 10:13:0042.0[facility] UnmveedWOKNDITRDX7452-67-29 10:13:0094.1[facility] [place] WJZPJVSTOK8672-56-44 10:13:00 Test Item Value Reference Range Interpretation Comments MCH (test code = MCH) 32.2 pg 27.0-31.0 [facility] CwcdivxITIDPXTMWT0648-73-40 10:13:0034.2[facility] HermannHEMATOLOGY 2019-12-30 10:13:0013.7[facility] WgkthgwCOEINGIBQI3546-82-37 10:13:11741Ynvrmrhm IvwanpaEFZSDSUDKS8670-13-24 10:13:009.0[facility] LgkeqgoNHZPMDIJKR4668-34-96 10:13:00 Test Item Value Reference Range Interpretation Comments PT (test code = PT) 13.9 s 12.0-14.7 [facility] RndpoiwBJXOCVTXIK8748-88-41 10:13:00 Test Item Value Reference Range Interpretation Comments INR (test code = INR) 1.07 1 0.85-1.17 [facility] UettjmiALPIYGMATO8859-29-17 10:13:00 Test Item Value Reference Range Interpretation Comments PTT (test code = PTT) 27.8 s 22.9-35.8 [facility] HermannPARATHYROID DUISCRJ4828-26-79 10:13:001.07[facility] PARATHYROID TTSQFLI2290-22-67 10:13:001.06[facility] HermannCARDIAC ENZYMES 2019-12-30 02:05:00<0.02[facility] HermannCARDIAC KOXDKTI6434-03-45 02:05:0090 [facility]annCHEM URONB4615-39-93 02:05:0028[facility] HermannCHEM PANEL 2019-12-30 02:05:003.6[facility] HermannCHEM QSLNZ6764-78-85 02:05:0046[facility] HermannCHEM LQYZW5552-76-46 02:05:000.1[facility]annCHEM WTTCS1446-90-98 02:05:000.6[facility]annCHEM LBVQD4445-88-20 02:05:000.5[facility]annCHEM KTYMK2326-86-86 02:05:007.2[facility]annCHEM CUEWD1084-79-76 02:05:0022 [facility]annCHE[facility] YLKVY2221-86-55 02:05:003.6[facility] HermannCHEM PANEL 2019-12-30 02:05:00 Test Item Value Reference Range Interpretation Comments A/G Ratio (test code = A/G Ratio) 1.0 1 0.7-1.6 [facility]annBLOOD BANK UBIWWBV1127-82-42 01:48:00Negative (12/29/19 8:48 PM) [facility]annCHEM [id number] 01:48:002.0[facility]annCHEM PANEL 2019-12-30 01:48:004.2[facility]annCHEM PSEVY6419-94-81 01:48:0082[facility]annCHEM HFGFV2264-83-55 01:48:0011[facility]annCHEM CNFWA1217-67-62 01:48:000.96[facility]annCHEM NSILM8378-86-88 01:48:91186Petktxjt HermannCHEM YNXAK8441-97-52 01:48:004.2[facility]annCHEM NKPQL1895-99-58 01:48:34466 [facility]annCHEM SYKKN9655-17-87 01:48:0025[facility] HermannCHEM PANEL 2019-12-30 01:48:008.8[facility] HermannCHEM XMEQQ6402-85-76 01:48:0012.2[facility] HermannCHEM WBNJI4108-33-32 01:48:00 Test Item Value Reference Range Interpretation Comments B/C Ratio (test code = B/C Ratio) 11 09-28 [facility]annCHEM VDYIR8146-37-76 01:48:02169Hugyggnc HermannCHEM PANEL 2019-12-30 01:48:0028[facility] HermannCHEM ALJVK0928-62-54 01:48:003.6[facility] HermannCHEM SWELX4040-37-44 01:48:0044[facility]annCHEM XXCOC6030-22-04 01:48:000.6[facility] HermannCHEM ZKQTH7660-91-68 01:48:007.1[facility] HermannCHEM NCKIT6775-26-40 01:48:0020[facility] HermannCHEM FMYVM6656-33-94 01:48:003.5 [facility]annCHEM FWOYZ3801-69-18 01:48:00 Test Item Value Reference Range Interpretation Comments A/G Ratio (test code = A/G Ratio) 1.0 1 0.7-1.6 [facility] ZgurhpyWGQNEKTBXR0024-09-11 01:48:00 Test Item Value Reference Range Interpretation Comments PTT (test code = PTT) 30.4 s 22.9-35.8 [facility] QpvetbxXTFNCUSZIP1432-30-88 01:48:007.0[facility] HermannHEMATOLOGY 2019-12-30 01:48:004.50[facility] JvrytbcTBNCLKHKBZ1407-40-18 01:48:0014.4[facility] LiuelpdUORFAOLYQC7594-16-19 01:48:0041.4[facility] EsphignDQIBWPQTQC3526-88-97 01:48:0092.1[facility] MunghvaTUFVEHODRJ2927-38-22 01:48:00 Test Item Value Reference Range Interpretation Comments MCH (test code = MCH) 32.0 pg 27.0-31.0 [facility] SasqjlgJIUAXBFWYQ9761-46-57 01:48:0034.8[facility] HermannHEMATOLOGY 2019-12-30 01:48:0013.7[facility] PzupqbcKFEIGTFCEA6072-51-05 01:48:00340Fqilobkj SzmdhypBCCWKQNEOL4700-23-95 01:48:009.5[facility] AkqdsujSKYGUEDWPY2803-97-98 01:48:0049.7[facility] VbcbwatSLKGUWRZIP6314-51-05 01:48:0033.2[facility] YVSYWDDBIN3954-46-29 01:48:009.0[facility] EwmvncsDTVADJWMMJ1206-22-87 01:48:007.0 [facility] KsndbhhFWGZOLMUCR9991-60-00 01:48:001.1[facility]HE[facility]OLOGY 2019-12-30 01:48:003.5[facility] QwmpqzaDWDTEYLAPV0050-57-43 01:48:002.3[facility] GpwzaqdCFJGEOUSBH2210-21-11 01:48:000.6[facility] RfsnyjqBTBXWHNAVN6629-88-59 01:48:000.5[facility] IniomthPWBBMQZJPU6648-86-47 01:48:000.1[facility] RZMOLD6005-11-69 01:48:0088[facility] OnylbhySCNRRY8953-43-26 01:48:84640Gbvcqrfv MywehehHYESGK9295-28-44 01:48:0043[facility] TutdoqeAWDKSU1479-14-08 01:48:00 Test Item Value Reference Range Interpretation Comments CHD Risk (test code = CHD Risk) 3.30 1 4.00-7.30 [facility] MlcdwjvNDWASY9840-80-28 01:48:0081[facility] VfyjbfpFEDHZI9283-40-45 01:48:00 Test Item Value Reference Range Interpretation Comments VLDL (test code = VLDL) 18 1 [facility]annPARATHYROID BAVBSDW0258-96-52 01:48:001.12[facility] PARATHYROID HIKJYBN5600-96-08 01:48:001.09[facility]annSPECIAL CHEMISTRY 2019-12-30 01:48:005.5[facility] RctggvtBQWVYMCUBN1623-07-44 16:15:00Not Detected *NA*(12/27/19 11:15 AM)[facility]annCHEM MZVRF1240-43-08 13:52:71043Ewnalknu HermannCHEM AZTTT3558-89-31 13:52:0021[facility]annCHEM BPRWI8745-81-90 13:52:001.16[facility]annCHEM QAWUI8493-26-44 13:52:0082[facility]annCHEM REYBK3112-07-19 13:52:0095[facility]annCHEM EQARU1017-91-71 13:52:66616 [facility]annCHEM TEIUA0476-63-92 13:52:004.1[facility]annCHEM PANEL 2019-08-31 13:52:71197Utfocuzg HermannCHEM XJXMN0622-45-51 13:52:0026[facility]annCHEM PVMFE1570-37-22 13:52:009.0[facility]annCHEM FSXGU2299-37-21 13:52:005.9[facility]annCHEM XNWHR7934-38-10 13:52:003.8[facility]annCHEM TIHUQ0919-97-63 13:52:002.1[facility]annCHEM CCXNF1227-73-75 13:52:001.8 [facility]annCHEM SJCYJ9400-69-10 13:52:000.8[facility]annCHEM PANEL 2019-08-31 13:52:0047[facility]annCHEM WCNKE0173-94-26 13:52:0021[facility] HermannCHEM [id number] 13:52:0043[facility] SyxwuwsHDVTMBBIUB0156-62-17 13:52:007.0[facility] BornokxTTOBVSPYHT2791-01-77 13:52:004.46[facility] WVUQTFZSRL2512-66-47 13:52:0014.2[facility] NrafxmbESGPRBBBUD4207-20-28 13:52:00 41.2[facility] DpygklaTXWNKXASDV3044-30-06 13:52:0092.4[facility] HermannHEMATOLOGY 2019-08-31 13:52:00 Test Item Value Reference Range Interpretation Comments MCH (test code = MCH) 31.8 pg 27.0-33.0 [facility] JiokzbdFJNUAAGKVQ2684-78-16 13:52:0034.5[facility] HermannHEMATOLOGY 2019-08-31 13:52:0013.0[facility] KkiixbgEJCRXUFGEQ4552-39-44 13:52:09591Ylxvznrq UkppfjtWZEYIGBHMA9621-37-23 13:52:0013.0[facility] BrtbyzeWSVNSXUPYF2491-89-08 13:52:439791Tyrhxlzt SdkkgcuKYEIJEOLPN9070-69-50 13:52:205558Jvrqgnup [place] PGRTRCUALQ6523-79-84 13:52:61751Pkcgdyln FknooeuQVVXCUWVEE6286-10-76 13:52:80414 [facility] CeyvexnLTDJFEUVIN3147-32-87 13:52:0063[facility] HermannHEMATOLOGY 2019-08-31 13:52:0068.1[facility] RcrsitqCQXLLGMMUF3824-49-94 13:52:0021.3[facility] SmtestkZCDKTHDYGK5032-78-50 13:52:006.7[facility] GzolangVDSCEQHSFL8395-31-49 13:52:003.0[facility] WcysaglRPRGRKIXBF1355-55-43 13:52:000.9[facility]
--- NOTE | 2020-05-13 16:38 | RAD REPORT ---
EXAM DESCRIPTION: RAD - Chest Single View - 05/13/2020 4:32 pm CLINICAL HISTORY: CHEST PAIN Chest pain. COMPARISON: Chest Single View dated 12/29/2019; Chest Single View dated 08/31/2019 FINDINGS: Portable technique limits examination quality. The lungs are grossly clear. The heart is upper limit normal in size. No displaced fractures.Multi le ad pacer/defibrillator device. IMPRESSION: No acute intrathoracic process suspected.
[2020-05-13 16:43] LABS: Absolute Lymphocytes (CBC) 2.1 K/uL (0.7-4.9); Basophils % 0.8 % (0-1.3); Hematocrit 43.8 % (39.6-49.0); Lymphocytes % 31.1 % (15.3-44.8); MPV 9.7 fL (7.6-11.3); RBC Red Blood Cell Count 4.85 M/uL (4.33-5.43)
[2020-05-13 16:56] LABS: ALT/SGPT 70 U/L (12-78); AST/SGOT 29 U/L (15-37); Albumin 4.1 g/dL (3.4-5.0); Alkaline Phosphatase 61 U/L (45-117); BUN Blood Urea Nitrogen 23 mg/dL (7-18); Bicarbonate 29 mmol/L (21-32); Bilirubin Direct 0.1 mg/dL (0-0.2); Bilirubin Total 0.4 mg/dL (0.2-1.0); Glucose Level 93 mg/dL (74-106); Magnesium 2.1 mg/dL (1.8-2.4); NT PRO-BNP 98 pg/mL (<125); Potassium 3.4 mmol/L (3.5-5.1); Sodium Level 139 mmol/L (136-145); Troponin (Emerg Dept Use Only) < 0.02 ng/mL (0.0-0.045)
[2020-05-13] MEDS ORDERED: MORPHINE 4 MG/ML SYR ONE (16:58)
[2020-05-13] MEDS ORDERED: ONDANSETRON 4 MG/2 ML VIAL ONE (16:58)
[2020-05-13] MEDS ORDERED: FUROSEMIDE 40 MG/4 ML VIAL ONE (18:36)
--- NOTE | 2020-05-13 19:46 | ER ---
Nurse's Notes [facility] Name: Bruce Medina Age: 35 yrs Sex: Male : 1985 Arrival Date: 05/13/2020 Time: 16:04 Bed 17 Private MD: Diagnosis: Chest pain, unspecified Presentation: 05/13 16:17 Chief complaint: Patient states: Chest pain started about a week and half ago, its tw2 getting worse and worse and i am having some SOB, Dr. Cid is my door person i have a pacemaker/defib because my heart rate was dropping too low. Coronavirus screen: shortness of breath. Ebola Screen: Patient denies travel to an Ebola-affected area in the 21 days before illness onset. Initial Sepsis Screen: Does the patient meet any 2 criteria? No. Patient's initial sepsis screen is negative. Does the patient have a suspected source of infection? No. Patient's initial sepsis screen is negative. Risk Assessment: Do you want to hurt yourself or someone else? Patient reports no desire to harm self or others. Note provider at bedside. Onset of symptoms was May 07, 2020. 16:17 Method Of Arrival: Ambulatory tw2 16:17 Acuity: LIAN 3 tw2 Triage Assessment: 16:17 General: Appears in no apparent distress. uncomfortable, well groomed, Behavior is tw2 calm, cooperative, appropriate for age. Pain: Complains of pain in chest. Cardiovascular: Reports chest pain, shortness of breath. Historical: - Allergies: 16:23 Sulfa (Sulfonamide Antibiotics); tw2 - Home Meds: 16:23 Furosemide Oral [Active]; Entresto oral oral [Active]; Metoprolol Tartrate Oral tw2 [Active]; - PMHx: 16:23 HEART FAILURE; tw2 - PSHx: 16:23 None; pacemake/defibrilator; tw2 - Immunization history:: Adult Immunizations. - Social history:: Smoking status: . Screenin:28 Abuse screen: Denies threats or abuse. Denies injuries from another. Nutritional zb screening: No deficits noted. Tuberculosis screening: No symptoms or risk factors identified. Fall Risk None identified. Assessment: 16:30 General: Appears in no apparent distress. uncomfortable, Behavior is agitated, Reports zb feeling ill for 1-2 days, fatigue for 1-2 days. Pain: Complains of pain in mid-sternal area Pain does not radiate. Pain currently is 8 out of 10 on a pain scale. Quality of pain is described as heavy, pressure, Pain began 1 day ago. Is continuous. Neuro: Level of Consciousness is awake, alert, obeys commands, Oriented to person, place, time, situation. Cardiovascular: Capillary refill < 3 seconds in bilateral fingers Patient's skin is warm and dry. Rhythm is Chest pain is described as mild, quality is heaviness, pressure, is located in anterior began 1 day ago. Respiratory: Reports shortness of breath at rest Airway is patent Respiratory effort is even, unlabored, Respiratory pattern is regular, symmetrical. GI: No signs and/or symptoms were reported involving the gastrointestinal system. Abdomen is round non-distended, Bowel sounds present X 4 quads. Reports nausea. : No signs and/or symptoms were reported regarding the genitourinary system. EENT: No signs and/or symptoms were reported regarding the EENT system. Derm: Skin is intact, is healthy with good turgor, Skin is dry, Skin is normal. Musculoskeletal: Capillary refill < 3 seconds, in bilateral fingers. Range of motion: intact in all extremities. 17:30 Reassessment: Patient appears in no apparent distress at this time. Patient and/or zb family updated on plan of care and expected duration. Pain level reassessed. Patient is alert, oriented x 3, equal unlabored respirations, skin warm/dry/pink. patient rest in bed at the moment. 18:02 Reassessment: ECP at bedside discussing care. zb 18:30 Reassessment: Patient appears in no apparent distress at this time. Patient and/or zb family updated on plan of care and expected duration. Pain level reassessed. Patient is alert, oriented x 3, equal unlabored respirations, skin warm/dry/pink. pt continues to rest in bed. no changes. decrease nausea noted. 20:08 Reassessment: ECP at bedside. may order more test. zb 21:17 Reassessment: pt expressed no changes at this time. states he feels the same. emptied zb 900ml of urine. patient also ambulated to the restroom, no appears of SOB. 22:09 Reassessment: Patient appears in no apparent distress at this time. Patient and/or zb family updated on plan of care and expected duration. Pain level reassessed. Patient is alert, oriented x 3, equal unlabored respirations, skin warm/dry/pink. no changes at this time. Vital Signs: 16:17 BP 128 / 77; Pulse 67; Resp 20; Temp 97.9(TE); Pulse Ox 99% on R/A; tw2 16:22 Weight 107.5 kg (R); Height 5 ft. 10 in. (177.80 cm); Pain 8/10; tw2 17:30 BP 108 / 59; Pulse 71; Resp 19; Pulse Ox 97% on R/A; zb 18:30 BP 103 / 69; Pulse 73; Resp 20; Pulse Ox 97% on R/A; zb 19:30 BP 109 / 66; Pulse 71; Resp 16; Pulse Ox 96% on R/A; zb 20:30 BP 110 / 72; Pulse 67; Resp 20; Pulse Ox 97% on R/A; zb 21:30 BP 104 / 71; Pulse 59; Resp 18; Pulse Ox 97% on R/A; zb 22:19 BP 106 / 82; Pulse 71; Resp 16; Pulse Ox 100% on R/A; zb 16:22 Body Mass Index 34.01 (107.50 kg, 177.80 cm) tw2 ED Course: 16:04 Patient arrived in ED. ag5 16:11 Charlie Spears PA is PHCP. m 16:11 Fox Dutton MD is Attending Physician. [facility] 16:20 Triage completed. tw2 16:22 Arm band placed on. tw2 16:27 Katie Blanchard, DENNIS is Primary Nurse. zb 16:32 XRAY Chest (1 view) In Process Unspecified. EDMS 18:16 Troponin (emerg Dept Use Only) Sent. tw2 18:20 Inserted saline lock: 20 gauge in right antecubital area, using aseptic technique. zb Blood collected. 21:12 Patient has correct armband on for positive identification. opticianry teacher on. Pulse zb ox on. NIBP on. 21:12 Patient maintains SpO2 saturation greater than 95% on room air. zb 21:23 Chest For PE Angio CT In Process Unspecified. EDMS 22:00 No provider procedures requiring assistance completed. zb 22:10 IV discontinued, intact, bleeding controlled, No redness/swelling at site. Pressure zb dressing applied. 22:25 Basic Metabolic Panel Sent. zb Administered Medications: 16:53 Drug: morphine 4 mg Route: IVP; Site: left antecubital; zb 17:20 Follow up: Response: No adverse reaction; Pain is decreased zb 16:54 Drug: Zofran (Ondansetron) 4 mg Route: IVP; Site: left antecubital; zb 17:00 Follow up: Response: No adverse reaction; Nausea is decreased zb 18:30 Drug: Lasix 40 mg Route: IVP; Site: left antecubital; zb 18:51 Follow up: Response: No adverse reaction zb Outcome: 19:45 Discharge ordered by MD. jmm 21:46 Discharge ordered by MD. jmm 22:10 Discharged to home ambulatory. zb 22:10 Condition: stable 22:10 Discharge instructions given to patient, Instructed on discharge instructions, follow up and referral plans. Demonstrated understanding of instructions, follow-up care. 22:19 Patient left the ED. 4 Signatures: Dispatcher [employer] EDMS Charlie Spears PA PA jmm Wise, Tara, RN RN 2 Marifer Quigley [facility] Roberto Barnard 4 Katie Blanchard RN RN micahb Corrections: (The following items were deleted from the chart) 18:52 16:30 GI: No signs and/or symptoms were reported involving the gastrointestinal system. zb Abdomen is round non-distended, Bowel sounds present X 4 quads. zb
--- NOTE | 2020-05-13 19:46 | EDPHYS ---
Physician Documentation [facility] Name: Bruce Medina Age: 35 yrs Sex: Male : 1985 Arrival Date: 05/13/2020 Time: 16:04 Bed 17 Private MD: ED Physician Fox Dutton HPI: 05/13 16:26 This 35 yrs old Male presents to ER via Ambulatory with complaints of Chest jmm Pain. 16:26 The patient or guardian reports chest pain that is located primarily in the substernal jmm area. Associated signs and symptoms: Pertinent positives: shortness of breath. The chest pain is described as aching. Modifying factors: The symptoms are alleviated by nothing. the symptoms are aggravated by exertion. This is a 35 year old male with a history of CHF that presents to the ED with complaints of substernal chest pain for about a week. Intermittent in intensity. . Historical: - Allergies: 16:23 Sulfa (Sulfonamide Antibiotics); tw2 - Home Meds: 16:23 Furosemide Oral [Active]; Entresto oral oral [Active]; Metoprolol Tartrate Oral tw2 [Active]; - PMHx: 16:23 HEART FAILURE; tw2 - PSHx: 16:23 None; pacemake/defibrilator; tw2 - Immunization history:: Adult Immunizations. - Social history:: Smoking status: . ROS: 16:26 Constitutional: Negative for fever, chills, and weight loss. jmm 16:26 Cardiovascular: Positive for chest pain. 16:26 Respiratory: Positive for shortness of breath. 16:26 All other systems are negative. Exam: 16:26 Constitutional: This is a well developed, well nourished patient who is awake, alert, jmm and in no acute distress. Head/Face: atraumatic. Eyes: EOMI, no conjunctival erythema appreciated ENT: Moist Mucus Membranes Neck: Trachea midline, Supple Chest/axilla: Normal chest wall appearance and motion. Cardiovascular: Regular rate and rhythm. No edema appreciated Respiratory: Normal respirations, no respiratory distress appreciated Abdomen/GI: Non distended, soft Back: Normal ROM Skin: General appearance color normal MS/ Extremity: Moves all extremities, no obvious deformities appreciated, no edema noted to the lower extremities Neuro: Awake and alert, normal gait Psych: Behavior is normal, Mood is normal, Patient is cooperative and pleasant Vital Signs: 16:17 BP 128 / 77; Pulse 67; Resp 20; Temp 97.9(TE); Pulse Ox 99% on R/A; tw2 16:22 Weight 107.5 kg (R); Height 5 ft. 10 in. (177.80 cm); Pain 8/10; tw2 17:30 BP 108 / 59; Pulse 71; Resp 19; Pulse Ox 97% on R/A; zb 18:30 BP 103 / 69; Pulse 73; Resp 20; Pulse Ox 97% on R/A; zb 19:30 BP 109 / 66; Pulse 71; Resp 16; Pulse Ox 96% on R/A; zb 20:30 BP 110 / 72; Pulse 67; Resp 20; Pulse Ox 97% on R/A; zb 21:30 BP 104 / 71; Pulse 59; Resp 18; Pulse Ox 97% on R/A; zb 22:19 BP 106 / 82; Pulse 71; Resp 16; Pulse Ox 100% on R/A; zb 16:22 Body Mass Index 34.01 (107.50 kg, 177.80 cm) tw2 MDM: 16:21 Patient medically screened. [facility] 19:43 Data reviewed: vital signs, nurses notes. Counseling: I had a detailed discussion with ayde the patient and/or guardian regarding: the historical points, exam findings, and any diagnostic results supporting the discharge/admit diagnosis, lab results, radiology results, the need for outpatient follow up, to return to the emergency department if symptoms worsen or persist or if there are any questions or concerns that arise at home. ED course: Labs wnl, troponin negative, BNP WNL, CXR no signs of overload. Patient stated most recent cardiac catheterization clear, I do not suspect acs at this time. Patient will follow up with sales special agent next week. Patient is otherwise given strict return precautions. Patient understood. . 21:45 ED course: CTA negative. [facility] 05/13 16:15 Order name: Basic Metabolic Panel [facility] 05/13 16:15 Order name: CBC with Diff; Complete Time: 16:50 [facility] 05/13 16:15 Order name: LFT's; Complete Time: 17:04 [facility] 05/13 16:15 Order name: Magnesium; Complete Time: 17:04 [facility] 05/13 16:15 Order name: NT PRO-BNP; Complete Time: 17:04 [facility] 05/13 16:15 Order name: PT-INR; Complete Time: 16:50 [facility] 05/13 16:15 Order name: Troponin (emerg Dept Use Only); Complete Time: 17:04 [facility] 05/13 16:15 Order name: XRAY Chest (1 view); Complete Time: 16:42 [facility] 05/13 16:15 Order name: Basic Metabolic Panel; Complete Time: 17:04 [facility] 05/13 17:54 Order name: Troponin (emerg Dept Use Only); Complete Time: 18:50 [facility] 05/13 20:10 Order name: Chest For PE Angio CT; Complete Time: 21:40 [facility] 05/13 16:15 Order name: EKG; Complete Time: 16:16 [facility] 05/13 16:15 Order name: Cardiac monitoring; Complete Time: 16:28 [facility] 05/13 16:15 Order name: EKG - Nurse/Tech; Complete Time: 16:28 [facility] 05/13 16:15 Order name: IV Saline Lock; Complete Time: 16:28 [facility] 05/13 16:15 Order name: Labs collected and sent; Complete Time: 16:28 [facility] 05/13 16:15 Order name: O2 Per Protocol; Complete Time: 16:28 [facility] 05/13 16:15 Order name: O2 Sat Monitoring; Complete Time: 16:28 [facility] 05/13 17:54 Order name: EKG - Nurse/Tech; Complete Time: 18:16 jmm Administered Medications: 16:53 Drug: morphine 4 mg Route: IVP; Site: left antecubital; zb 17:20 Follow up: Response: No adverse reaction; Pain is decreased zb 16:54 Drug: Zofran (Ondansetron) 4 mg Route: IVP; Site: left antecubital; zb 17:00 Follow up: Response: No adverse reaction; Nausea is decreased zb 18:30 Drug: Lasix 40 mg Route: IVP; Site: left antecubital; zb 18:51 Follow up: Response: No adverse reaction zb Disposition: 05/14 09:45 Co-signature as Attending Physician, Fox Dutton MD. rn Disposition: 05/13/20 21:46 Discharged to Home. Impression: Chest pain, unspecified. - Condition is Stable. - Discharge Instructions: Heart Failure. - Medication Reconciliation Form, Thank You Letter, Antibiotic Education, Prescription Opioid Use form. - Follow up: Private Physician; When: 2 - 3 days; Reason: Recheck today's complaints, Continuance of care, Re-evaluation by your physician. Signatures: Dispatcher [employer] EDMS Charlie Spears PA PA [facility] Fox Dutton MD MD rn Wise, Tara, RN RN 2 Roberto Barnard [facility] Katie Blanchard RN RN zb Corrections: (The following items were deleted from the chart) 05/13 20:10 19:45 05/13/2020 19:45 Discharged to Home. Impression: Chest pain, unspecified. [facility] Condition is Stable. Forms are Medication Reconciliation Form, Thank You Letter, Antibiotic Education, Prescription Opioid Use. Follow up: Private Physician; When: 2 - 3 days; Reason: Recheck today's complaints, Continuance of care, Re-evaluation by your physician. [facility] 22:19 21:46 05/13/2020 21:46 Discharged to Home. Impression: Chest pain, unspecified. [facility] Condition is Stable. Forms are Medication Reconciliation Form, Thank You Letter, Antibiotic Education, Prescription Opioid Use. Follow up: Private Physician; When: 2 - 3 days; Reason: Recheck today's complaints, Continuance of care, Re-evaluation by your physician. [facility]
--- NOTE | 2020-05-13 21:35 | RAD REPORT ---
EXAM DESCRIPTION: CT - Chest For Pe Angio - 05/13/2020 9:23 pm CLINICAL HISTORY: Chest pain. CHEST PAIN COMPARISON: Chest For Pe Angio dated 09/01/2019 TECHNIQUE: CT angiogram of the pulmonary arteries was performed with MIP. All CT scans are performed using dose optimization technique as appropriate and may include automated exposure control or mA/KV adjustment according to patient size. FINDINGS: No evidence of pulmonary thromboembolism. Cardiac size is prominent with pacer device noted. Aorta is not optimally opacified with contrast for assessment. No gross aortic abnormality seen. Mild interstitial pulmonary edema is evident. No significant pericardial or pleural fluid. No concerning bony finding. IMPRESSION: No evidence of pulmonary thromboembolism. Mild CHF.
[2020-05-13 22:34] VITALS: TEMP 97.9
[2020-05-13 22:40] VITALS: BP 110/72; O2SAT 97
== END 2020-05-13 22:19 | disposition home or self-care (01) ==
LOC: ER 16:03
DX: R07.9 Chest pain, unspecified (principal); I50.9 Heart failure, unspecified; Z95.810 Presence of automatic (implantable) cardiac defibrillator; Z88.2 Allergy status to sulfonamides
CPT/HCPCS: 93005 ×2; 85025; 80048; 36415; 83735; 85610; 80076; 84484 ×2; 83880; 71275; 71045; 96375; 96374; 99285; Q9967; J1940; J2405

== ENCOUNTER 2020-05-14 14:16 | Emergency (ER) | payer OTHER ==
[2020-05-14 14:56] LABS: Absolute Lymphocytes (CBC) 1.8 K/uL (0.7-4.9); Basophils % 0.7 % (0-1.3); Hematocrit 43.6 % (39.6-49.0); Lymphocytes % 26.4 % (15.3-44.8); MPV 9.2 fL (7.6-11.3); RBC Red Blood Cell Count 4.84 M/uL (4.33-5.43)
[2020-05-14 14:57] LABS: Protime INR 1.06
[2020-05-14 15:10] LABS: ALT/SGPT 64 U/L (12-78); AST/SGOT 23 U/L (15-37); Albumin 3.9 g/dL (3.4-5.0); Alkaline Phosphatase 55 U/L (45-117); BUN Blood Urea Nitrogen 22 mg/dL (7-18); Bicarbonate 31 mmol/L (21-32); Bilirubin Direct 0.1 mg/dL (0-0.2); Bilirubin Total 0.6 mg/dL (0.2-1.0); Glucose Level 84 mg/dL (74-106); Magnesium 2.3 mg/dL (1.8-2.4); NT PRO-BNP 74 pg/mL (<125); Potassium 3.5 mmol/L (3.5-5.1); Protein, Total 7.9 g/dL (6.4-8.2); Sodium Level 140 mmol/L (136-145); Troponin (Emerg Dept Use Only) < 0.02 ng/mL (0.0-0.045)
--- NOTE | 2020-05-14 15:43 | RAD REPORT ---
EXAM DESCRIPTION: RAD - Chest Single View - 05/14/2020 3:21 pm CLINICAL HISTORY: Chest pain;SOB COMPARISON: Portable May 13 TECHNIQUE: AP portable chest image was obtained 05/14/2020 3:21 pm . FINDINGS: Lung volumes are low. Lung sutton are clear. Cardiomegaly present similar to comparison. N o vascular engorgement. Pacemaker is in place. No measurable pleural effusion and no pneumothorax. No acute bony abnormality seen. No acute aortic findings suspected. IMPRESSION: No acute cardiopulmonary process. No significant change from comparison study.
--- NOTE | 2020-05-14 16:06 | ER ---
Nurse's Notes [facility] Name: Bruce Medina Age: 35 yrs Sex: Male : 1985 Arrival Date: 05/14/2020 Time: 14:16 Bed 13 Private MD: Diagnosis: Chest pain, unspecified Presentation: 05/14 14:18 Chief complaint: Patient states: anterior chest pain started a couple of days ago and sv was seen here for it. Stated his HR ranges from the 30-60s, has a pacemaker with defibrillator. Saw Dr Cid and they told him to come here to the ER. Coronavirus screen: Client denies travel out of the [place] in the last 14 days. At this time, the client does not indicate any symptoms associated with coronavirus-19. Ebola Screen: No symptoms or risks identified at this time. Risk Assessment: Do you want to hurt yourself or someone else? Patient reports no desire to harm self or others. Onset of symptoms was May 2020. 14:18 Method Of Arrival: Ambulatory sv 14:18 Acuity: LIAN 2 sv 14:18 Initial Sepsis Screen: Does the patient meet any 2 criteria? No. Patient's initial sv sepsis screen is negative. Does the patient have a suspected source of infection? No. Patient's initial sepsis screen is negative. Triage Assessment: 16:38 General: Appears in no apparent distress. Behavior is calm, cooperative, appropriate ll1 for age. Pain: Denies pain. Historical: - Allergies: 14:24 Sulfa (Sulfonamide Antibiotics); sv - PMHx: 14:24 HEART FAILURE; sv - PSHx: 14:24 pacemake/defibrilator (December 2019); sv - Immunization history:: Adult Immunizations up to date. - Social history:: Smoking status: Patient denies any tobacco usage or history of. Screenin:38 Abuse screen: Denies threats or abuse. Nutritional screening: No deficits noted. ll1 Tuberculosis screening: No symptoms or risk factors identified. Fall Risk Total Plasencia Fall Scale indicates No Risk (0-24 pts). Assessment: 14:21 Reassessment: Received VO from Dr Dutton for EKG order. sv 14:30 Pain: Complains of pain in chest Pain does not radiate. Quality of pain is described as ll1 pressure, Pain began off/on weeks. Neuro: No deficits noted. Cardiovascular: Reports chest pain, palpitations, shortness of breath, Heart tones S1 S2 Capillary refill < 3 seconds Clubbing of nail beds is absent JVD is absent Patient's skin is warm and dry. Respiratory: Reports shortness of breath Airway is patent Trachea midline Respiratory effort is even, unlabored, Respiratory pattern is regular, symmetrical, Breath sounds are clear bilaterally. Vital Signs: 14:24 BP 114 / 68; Pulse 40; Resp 16; Temp 98; Pulse Ox 99% ; Weight 104.33 kg; Height 5 ft. sv 10 in. (177.80 cm); Pain 0/10; 15:19 Pulse 71; Resp 17; Pulse Ox 98% ; ll1 15:37 BP 102 / 81; Pulse 69; Resp 17; Pulse Ox 97% on R/A; ll1 14:24 Body Mass Index 33.00 (104.33 kg, 177.80 cm) sv ED Course: 14:16 Patient arrived in ED. ds1 14:21 EKG completed in triage. Results shown to MD. sv 14:23 Triage completed. sv 14:24 Arm band placed on. sv 14:30 Sp Gottlieb, RICKEY is PHCP. pm1 14:30 Fox Dutton MD is Attending Physician. pm1 14:40 Inserted saline lock: 20 gauge in left antecubital area, using aseptic technique. Blood ll1 collected. 14:47 Kinza Wells, DENNIS is Primary Nurse. ll1 15:21 XRAY Chest (1 view) In Process Unspecified. EDMS 16:10 Basic Metabolic Panel Sent. ss 16:38 Patient has correct armband on for positive identification. Bed in low position. Call ll1 light in reach. Side rails up X 1. estimation manager on. Pulse ox on. NIBP on. 16:38 No provider procedures requiring assistance completed. IV discontinued, intact, ll1 bleeding controlled, No redness/swelling at site. Pressure dressing applied. Patient maintains SpO2 saturation greater than 95% on room air. Administered Medications: No medications were administered Outcome: 16:06 Discharge ordered by MD. pm1 16:39 Discharged to home ambulatory. ll1 16:39 Condition: stable 16:39 Discharge instructions given to patient, Instructed on discharge instructions, follow up and referral plans. Demonstrated understanding of instructions, follow-up care. 16:39 Patient left the ED. ll1 Signatures: Dispatcher [employer] Jessica Abdullahi RN RN sv Mariela Reece ds1 Chaya Aguillon RN RN ss Sp Gottlieb, RICKEY LEGAL INVESTIGATOR pm1 Kinza Wells RN RN ll1 Corrections: (The following items were deleted from the chart) 14:25 14:18 Acuity: LIAN 3 sv sv 14:30 14:24 Pulse 40bpm; Resp 16bpm; Pulse Ox 99%; Temp 98F; 104.33 kg; Height 5 ft. 10 in.; sv BMI: 33.0; Pain 0/10; sv
--- NOTE | 2020-05-14 16:06 | EDPHYS ---
Physician Documentation [facility] Name: Bruce Medina Age: 35 yrs Sex: Male : 1985 Arrival Date: 05/14/2020 Time: 14:16 Bed 13 Private MD: ED Physician Fox Dutton HPI: 05/14 14:43 This 35 yrs old Male presents to ER via Ambulatory with complaints of Chest pm1 Pain, Shortness Of Breath. 14:43 The patient or guardian reports chest pain that is located primarily in the mid-sternal pm1 area. 14:43 Onset: The symptoms/episode began/occurred 1 week(s) ago. pm1 14:43 Associated signs and symptoms: Pertinent positives: nausea, near-syncope, shortness of pm1 breath, vomiting, Pertinent negatives: abdominal pain, dizziness, headache. The chest pain is described as aching. Modifying factors: the symptoms are aggravated by exertion. Severity of pain: in the emergency department the pain is unchanged. The patient has experienced similar episodes in the past. The patient has been recently seen at the [facility] Emergency Department, yesterday, for similar complaints labs were performed, X-rays were performed, CT scan was performed, Patient discharged for follow up with his medical social worker. Patient reports the sensation of bradycardia. 15:03 Patient turned in holter moniter to his medical social worker last week for apparently the same pm1 complaint. Historical: - Allergies: 14:24 Sulfa (Sulfonamide Antibiotics); sv - PMHx: 14:24 HEART FAILURE; sv - PSHx: 14:24 pacemake/defibrilator (December 2019); sv - Immunization history:: Adult Immunizations up to date. - Social history:: Smoking status: Patient denies any tobacco usage or history of. ROS: 15:03 Constitutional: Negative for fever, chills, and weight loss, Neck: Negative for injury, pm1 pain, and swelling. 15:03 Respiratory: Negative for shortness of breath, cough, wheezing, and pleuritic chest pain, Abdomen/GI: Negative for abdominal pain, nausea, vomiting, diarrhea, and constipation, Back: Negative for injury and pain, MS/Extremity: Negative for injury and deformity, Skin: Negative for injury, rash, and discoloration, Neuro: Negative for headache, weakness, numbness, tingling, and seizure. 15:03 Cardiovascular: Positive for chest pain, Negative for edema, orthopnea. Exam: 15:03 Constitutional: This is a well developed, well nourished patient who is awake, alert, pm1 and in no acute distress. Head/Face: Normocephalic, atraumatic. 18:14 Back: No spinal tenderness. No costovertebral tenderness. Full range of motion. pm1 18:14 Skin: Warm, dry with normal turgor. Normal color with no rashes, no lesions, and no evidence of cellulitis. MS/ Extremity: Pulses equal, no cyanosis. Neurovascular intact. Full, normal range of motion. 18:14 Cardiovascular: Rate: normal, Rhythm: regular, Pulses: no pulse deficits are appreciated. 18:14 Respiratory: Exam negative for acute changes, respiratory distress, shortness of breath. 18:14 Abdomen/GI: Inspection: abdomen appears normal, Palpation: abdomen is soft and non-tender, in all quadrants. 18:14 Neuro: Exam negative for acute changes, Orientation: is normal, Mentation: is normal, Motor: is normal. Vital Signs: 14:24 BP 114 / 68; Pulse 40; Resp 16; Temp 98; Pulse Ox 99% ; Weight 104.33 kg; Height 5 ft. sv 10 in. (177.80 cm); Pain 0/10; 15:19 Pulse 71; Resp 17; Pulse Ox 98% ; ll1 15:37 BP 102 / 81; Pulse 69; Resp 17; Pulse Ox 97% on R/A; ll1 14:24 Body Mass Index 33.00 (104.33 kg, 177.80 cm) sv MDM: 14:31 Patient medically screened. pm1 16:04 Physician consultation: Seamus Bauer MD was contacted at 16:04, regarding consult, pm1 patient's condition, recommends follow up in the office. 16:05 Data reviewed: vital signs. pm1 16:05 Counseling: I had a detailed discussion with the patient and/or guardian regarding: the pm1 historical points, exam findings, and any diagnostic results supporting the discharge/admit diagnosis, lab results, radiology results, the need for outpatient follow up, a medical social worker, to return to the emergency department if symptoms worsen or persist or if there are any questions or concerns that arise at home. 05/14 14:38 Order name: Basic Metabolic Panel pm1 05/14 14:38 Order name: CBC with Diff; Complete Time: 15:11 pm1 05/14 14:38 Order name: LFT's; Complete Time: 15:11 pm1 05/14 14:38 Order name: Magnesium; Complete Time: 15:11 pm1 05/14 14:38 Order name: NT PRO-BNP; Complete Time: 15:11 pm1 05/14 14:38 Order name: PT-INR; Complete Time: 15:11 pm1 05/14 14:25 Order name: EKG; Complete Time: 14:26 sv 05/14 14:25 Order name: EKG - Nurse/Tech; Complete Time: 14:26 sv 05/14 14:38 Order name: Troponin (emerg Dept Use Only); Complete Time: 15:11 pm1 05/14 14:38 Order name: XRAY Chest (1 view); Complete Time: 15:47 pm1 05/14 14:38 Order name: Cardiac monitoring; Complete Time: 16:38 pm1 05/14 14:38 Order name: IV Saline Lock; Complete Time: 16:38 pm1 05/14 14:38 Order name: Labs collected and sent; Complete Time: 16:38 pm1 05/14 14:39 Order name: Basic Metabolic Panel; Complete Time: 15:11 EDMS 05/14 14:38 Order name: O2 Per Protocol pm1 05/14 14:38 Order name: O2 Sat Monitoring pm1 Administered Medications: No medications were administered Disposition: 17:18 Co-signature as Attending Physician, Fox Dutton MD. rn Disposition: 05/14/20 16:06 Discharged to Home. Impression: Chest pain, unspecified. - Condition is Stable. - Discharge Instructions: Nonspecific Chest Pain. - Medication Reconciliation Form, Thank You Letter, Antibiotic Education, Prescription Opioid Use form. - Follow up: Emergency Department; When: As needed; Reason: Worsening of condition. Follow up: Private Physician; When: 2 - 3 days; Reason: Recheck today's complaints, Continuance of care, Re-evaluation by your physician. - Problem is new. - Symptoms have improved. Signatures: Dispatcher [employer] EDRI Jessica Morse RN RN sv Nieto, Roman, MD MD rn Marinas, Patrick, ADVERTISING SPACE CLERK ADVERTISING SPACE CLERK pm1 Kinza Wells, RN RN ll1 Corrections: (The following items were deleted from the chart) 16:39 16:06 05/14/2020 16:06 Discharged to Home. Impression: Chest pain, unspecified. ll1 Condition is Stable. Forms are Medication Reconciliation Form, Thank You Letter, Antibiotic Education, Prescription Opioid Use. Follow up: Emergency Department; When: As needed; Reason: Worsening of condition. Follow up: Private Physician; When: 2 - 3 days; Reason: Recheck today's complaints, Continuance of care, Re-evaluation by your physician. Problem is new. Symptoms have improved. pm1
[2020-05-14 16:52] VITALS: TEMP 98
[2020-05-14 16:55] VITALS: BP 102/81; O2SAT 97
--- NOTE | 2020-05-15 18:44 | EKG ---
Test Date: 2020-05-14 Test Time: 14:21:46 Manufacturing Assistant: HEATHER MEASUREMENT RESULTS: Intervals: Rate: 68 KS: 112 QRSD: 142 QT: 438 QTc: 465 [place]: P: 84 KS: 112 QRS: 135 T: -6 INTERPRETIVE STATEMENTS: Demand pacemaker, interpretation is based on intrinsic rhythm Sinus rhythm with premature supraventricular complexes with occasional and consecutive premature ventricular complexes Right bundle branch block Left posterior fascicular block Bifascicular block T wave abnormality, consider lateral ischemia Abnormal ECG Compared to ECG 05/13/2020 18:12:00 Atrial premature complex(es) now present Sinus bradycardia no longer present Fusion complex(es) no longer present Bifascicular block still present T-wave abnormality still present Possible ischemia still present Electronically Signed On 05-15-20 18:40:31 TECHNOLOGY APPLICATIONS ENGINEER by Lowell Cid
--- OUTSIDE RECORDS SUMMARY | 2020-05-15 23:29 | XMS REPORT | Continuity of Care Document ---
:1985 Author Organization [employer] Care Team Providers Name Role Phone [employer] Unavailable Un available Problems Problem Status Onset Classification Date Comments Sourc e Date Reported Methicillin Active 12/30/19 Problem 01/06/2020 Nares, 12/30/2019 Medical resistant 20 Problem added by Dis cern Expert. Group, Staphylococcus [place] aureus (organism) [facility] CARDIOMYOPATHY Active 12/29/19 [facility] [address] [place] [address] Center CCL / BI-V ICD W/ Active 12/19/19 [facility] [place] [address] [place] [address] Center Atypical chest Active Problem 09/04/2019 [facility] edical pain (finding) Group Dyspnea (finding) Active Problem 01/06/2020 [facility] Medical Group Generalized Active Problem 09/04/2019 [facility] anxiety disorder Roro up (disorder) Simple obesity Active Problem 01/06/2020 [facility] edical (disorder) Group Sinus tachycardia Active Problem 09/04/2019 [facility] Medical (finding) Group Ventricular Active Problem 01/06/2020 [facility] premature beats Grou p (disorder) Calculus in Active Problem 01/06/2020 [facility] biliary tract Group (disorder) Congestive heart Active Problem 01/06/2020 Medical failure (disorder) G roup Impaired fasting Active Problem 01/06/2020 Medical glycaemia Group (disorder) Sleep apnea Active Problem 01/06/2020 Medi indira (finding) Group Anxiety disorder Active Problem 01/06/2020 Medical (disorder) Group Cardiomyopathy Active Problem 01/06/2020 [facility] edical (disorder) Group Medications Medication Details Route Status Patient Ordering Order Source Instructions Provider Date citalopram 20 mg 20 mg = 1 tab, Active oral tablet PO, Daily, # 90 2019 Medi indira tab, 0 Group Refill(s), Pharmacy: [facility] [id number], 177.8, cm, 01/03/20 15:26:00 CDT, Height, 102.182, kg, 01/03/20 15:26:00 CDT, Weight sacubitril 24 MG 1 tab, PO, BID, Active / valsartan 26 # 56 tab, 0 2020 Medic al MG Oral Tablet Refill(s) Group [Entresto] Acetaminophen 1 tab, PO, Q6H, Active [place] 300 MG / Codeine PRN Pain, not [...] 50 MG / Daily, X 10 2020 [employer], HALFWAY day, # 10 tab, C enter 8.6 MG Oral 0 Refill(s), Tablet called to pharmacy Docusate Sodium 1 tab, PO, Inactive [place] 50 MG / Daily, X 10 2019 [employer], HALFWAY day, # 10 tab, C enter 8.6 MG Oral 0 Refill(s), Tablet called to pharmacy Acetaminophen 1 tab, PO, Q6H, Inactive H [place] 300 MG / Codeine PRN Pain, not [...] cap, Active [place] mg oral capsule PO, [id number], 2020 Med ical Please take 5 Center more days of antibiotics. 1 pill two time daily., X 5 day, # 10 cap, 0 Refill(s) sacubitril 24 MG 1 tab, PO, BID, Active / valsartan # 60 tab, 2 2019 Medic al MG Oral Tablet Refill(s) [facility] Notes: (Same Inactive [place] as: Zofran) 2019 Medical MEDICATION Center WASTE Product Size: 4 mg Product Wasted: ___ mg Acetaminophen Notes: Max Inactive [place] as acetaminophen 2019 [facility] 4000 mg/day (4 Center gm/day). (Same as: Tylenol Extra Strength) Dilaudid Notes: Same [place] Dilaudid 2019 [facility] Center Entresto 24 Notes: (Same No Longer [place] mg-26 mg oral as: Entresto) Active 2019 Medi indira tablet Avoid in Center patients with history of angioedema due to ELZBIETA inhibitor or ARB therapy. Do not use concomitantly or within 36 hours of ELZBIETA inhibitors Minocycline Notes: (Same No Longer [place] as:Minocin) No Active 2019 [facility] milk/antacids/i Center jose. Diazepam Notes: (Same Inactive [facility] as: Valium) 2019 [facility] Aspirin 81 mg, 1 tab, Inactive [place] Route: CHEW, 2019 Medical Drug form: [place] CHEWTAB, Daily, Dosing Weight 99.2, kg, Start date: 12/30/19 9:00:00 CDT, Duration: 30 day, Stop date: 01/28/20 9:00:00 CDT Docusate Sodium Notes: (Same as No Longer [place] 50 MG / Senokot-S) Active 2019 [facility] sennosides, HALFWAY Equiv. to Center 8.6 MG Oral Monet-Colace. Tablet sacubitril 24 MG Notes: (Same Inactive H / valsartan as: Entresto) 2019 Med ical MG Oral Tablet Avoid in Center [st] patients with history of angioedema due to ELZBIETA inhibitor or ARB therapy. Do not use concomitantly or within 36 hours of ELZBIETA inhibitors sacubitril 49 MG 1 tab, Route: Inactive [place] / valsartan 51 PO, Drug Form: 2019 Me dical MG Oral Tablet TAB, Dosing Arpan r [Entresto] Weight 99.2, kg, BID, Start date: 12/30/19 9:00:00 CDT, Duration: 30 day, Stop date: 01/28/20 17:00:00 CDT heparin Notes: porcine [place] Longer [place] heparin Active 2019 [facility] Miralax Notes: Dissolve No Longer [place] as in 8 oz of 2019 [facility] water or juice. Center (Same as: Miralax) sacubitril 49 MG 1 tab, PO, BID, Inactive [place] / valsartan 51 # 28 tab, 0 2019 Medic al MG Oral Tablet Refill(s) [place] [[facility]] Adult Aspirin 81 81 mg = 1 tab, No Longer [place] mg oral tablet, CHEW, Daily, 0 2019 edical chewable Refill(s) Center Acetaminophen Notes: Do not No Longer [place] exceed 4 2019 [facility] gm/day. (Same Center as: Tylenol) Potassium Notes: (Same [place] Longer [place] Chloride as: KCL) 2019 [facility] Infuse no Center faster than 10 mEq/hr if given peripherally. sodium phosphate Notes: Infuse No Longer [place] over [address] Do [address] not infuse Center phosphorous concurrently in the same line as TPN or IVF that contains calcium. For double lumen central lines, phosphorous may be infused in a separate lumen from TPN. potassium Notes: (Same [place] Longer [place] phosphate as: K 2019 [facility] Phosphate) Center Infuse over 4 hour. Do [...] Sulfate F/P - Sink; E - 2019 [facility] Bin Magnesium Oxide Notes: (Same No Longer [facility] as: Mag-Ox 400) Active 2019 Medical Magnesium oxide Center [id number] elemental magnesium Dose=____mg magnesium oxide (___mg elemental magnesium) Calcium Notes: WASTE: No Longer [place] Gluconate F/P - Sink; E - 2019 Medica l [facility] Bin Calcium Notes: (Same No Longer [place] Carbonate 500 MG As: Tums) 2019 Medic [...] Active Hydrochloride 25 PO, QID, PRN 2019 [place] dical MG Oral Tablet Anxiety, X 10 [place] day, # 40 tab, 0 Refill(s), Pharmacy: [id number] Atenolol 25 MG 25 mg = 1 tab, No Longer Oral Tablet PO, Daily, # 30 Active 2019 Medi indira tab, 1 Group Refill(s), Pharmacy: [facility] #[id number] Allergies, Adverse Reactions, Alerts Substance Category Reaction Severity Reaction Status Date Comments S ource type Reported sulfa drugs Assertion Drug Active allergy Medical Group Immunizations No Data Provided for This Section Results Order Name Results Value Reference Date Interpretation Comments Shanthi rce Range CHEM PANEL Glucose Lvl 95 70 - 99 12/[address] CHEM PANEL BUN 20 7 - 22 12/[address] CHEM PANEL Creatinine 1.32 0.50 - 12/30 [place] Lvl 1.40 [facility] CHEM PANEL Sodium Lvl 137 135 - 145 12/[address] CHEM PANEL Potassium Lvl 3.8 3.5 - 5.1 12/30 [facility]2019 [facility] CHEM PANEL Chloride Lvl 104 95 - 109 12/30 [facility]2019 [facility] CHEM PANEL CO2 28 24 - 32 12/[address] CHEM PANEL Calcium Lvl 8.3 8.5 - 10.5 12/30 [facility] CHEM PANEL AGAP 8.8 10.0 - 12/30 [facility] 20.0 [facility] CHEM PANEL B/C Ratio 15 6 - 25 12/[address] CHEM PANEL eGFR 70 12/30 [facility] Comment: The Medical eGFR is Center calculated [...] PANEL ALT 26 0 - 65 12/[address] CHEM PANEL Albumin Lvl 3.4 3.5 - 5.0 12/30 [facility]2019 [facility] CHEM PANEL Alk Phos 43 39 - 136 12/[address] CHEM PANEL Bili Total 0.5 0.2 - 1.3 12/[address] CHEM PANEL Total Protein 6.7 6.4 - 8.4 12/[address] CHEM PANEL AST 19 0 - 37 12/[address] CHEM PANEL Globulin 3.3 2.7 - 4.2 12/[address] CHEM PANEL A/G Ratio 1.0 0.7 - 1.6 12/[address] CHEM PANEL Magnesium Lvl 2.0 1.8 - 2.4 12/[address] CHEM PANEL Phosphorus 5.2 2.5 - 4.5 12/[address] HEMATOLOGY WBC 8.1 3.7 - 10.4 12/[address] HEMATOLOGY RBC 4.33 4.70 - 12/30 [place] 6.10 /2019 [facility] HEMATOLOGY Hgb 14.1 14.0 - 12/30 [place] 18.0 /2019 [facility] HEMATOLOGY Hct 40.3 42.0 - 12/30 [place] 54.0 /[address] [place] [address] HEMATOLOGY MCV 93.1 80.0 - 12/30 [place] 94.0 /[address] [place] [address] HEMATOLOGY MCH 32.6 27.0 - 12/30 [place] 31.0 /2019 [facility] HEMATOLOGY MCHC 35.0 32.0 - 12/30 [place] [address] HEMATOLOGY RDW 13.7 11.5 - 12/30 [place] 14.[address] HEMATOLOGY Platelet 194 133 - 450 12/[address] HEMATOLOGY MPV 8.8 7.4 - 10.4 12/[address] HEMATOLOGY PT 14.1 12.0 - 12/30 [place] 14.7 /2019 [facility] HEMATOLOGY INR 1.09 0.85 - 12/30 [place] 1.17 /2019 [facility] HEMATOLOGY PTT 30.6 22.9 - 12/30 [place] [address] HEMATOLOGY Segs 61.5 45.0 - 12/30 [place] [address] HEMATOLOGY Lymphocytes 22.9 20.0 - 12/30 [place] 40.0 2020 [facility] HEMATOLOGY Monocytes 10.8 2.0 - 12.0 12/[address] HEMATOLOGY Eosinophils 4.1 0.0 - 4.0 12/[place] [address] HEMATOLOGY Basophils 0.7 0.0 - 1.0 12/[address] HEMATOLOGY Neutrophils # 5.0 1.5 - 8.1 12/30 [facility] HEMATOLOGY Lymphocytes # 1.9 1.0 - 5.5 12/30 [facility]2019 [facility] HEMATOLOGY Monocytes # 0.9 0.0 - 0.8 12/30 [facility]2019 [facility] HEMATOLOGY Eosinophils # 0.3 0.0 - 0.5 12/30 [facility]2019 [facility] HEMATOLOGY Basophils # 0.1 0.0 - 0.2 12/30 [facility] PARATHYROID Ca Ion WB 1.06 1.05 - 12/30 [facility] PROFILE . [facility] PARATHYROID Ca Norm WB 1.05 1.05 - 12/30 [facility] 04.30 [facility] BACTERIAL - MRSA by PCR Positive 1 12/29 Result [facility] SEROLOGY *ABN* Comment: Medical (12/30/19 8:59 AM) "Significant C enter Findings called to Kwasi Hanson at 12/31/2019 03:29 by DO. Read Back OK." CARDIAC Troponin-I <0.02 0.00 - 12/29 [facility] ENZYMES ng/mL 0.40 [facility] CHEM PANEL Glucose Lvl 85 70 - 99 12/[address] CHEM PANEL BUN 15 7 - 22 12/[address] CHEM PANEL Creatinine 1.05 0.50 - 12/29 [facility] Lvl 1.40 [facility] CHEM PANEL Sodium Lvl 137 135 - 145 12/[address] CHEM PANEL Potassium Lvl 3.7 3.5 - 5.1 12/29 [facility]2019 [facility] CHEM PANEL Chloride Lvl 106 95 - 109 12/29 [facility]2019 [facility] CHEM PANEL CO2 26 24 - 32 12/[address] CHEM PANEL Calcium Lvl 8.6 8.5 - 10.5 12/29 [facility]2019 [facility] CHEM PANEL AGAP 8.7 10.0 - 12/29 [facility] 20.0 [facility] CHEM PANEL eGFR 93 12/29 Result [facility] Comment: The Medical eGFR is Center [...] Magnesium Lvl 2.2 1.8 - 2.4 12/[address] CHEM PANEL Phosphorus 4.1 2.5 - 4.5 12/[address] HEMATOLOGY Segs 53.7 45.0 - 12/29 [facility] [address] HEMATOLOGY Lymphocytes 29.6 20.0 - 12/29 [place] 40.0 2019 [facility] HEMATOLOGY Monocytes 8.9 2.0 - 12.0 12/[address] HEMATOLOGY Eosinophils 6.8 0.0 - 4.0 12/[address] HEMATOLOGY Basophils 1.0 0.0 - 1.0 12/[address] HEMATOLOGY Neutrophils # 4.0 1.5 - 8.1 12/[address] HEMATOLOGY Lymphocytes # 2.2 1.0 - 5.5 12/[address] HEMATOLOGY Monocytes # 0.7 0.0 - 0.8 12/[address] HEMATOLOGY Eosinophils # 0.5 0.0 - 0.5 12/[address] HEMATOLOGY Basophils # 0.1 0.0 - 0.2 12/[address] HEMATOLOGY WBC 7.5 3.7 - 10.4 12/[address] HEMATOLOGY RBC 4.47 4.70 - 12/29 [place] 6.[address] HEMATOLOGY Hgb 14.4 14.0 - 12/29 [place] 18.0 2019 [facility] HEMATOLOGY Hct 42.0 42.0 - 12/29 MH [place] 54.[address] HEMATOLOGY MCV 94.1 80.0 - 12/29 [place] 94.0 /2019 [facility] HEMATOLOGY MCH 32.2 27.0 - 12/29 [place] 31.0 /2019 [facility] HEMATOLOGY MCHC 34.2 32.0 - 12/29 [facility] 36.0 /2019 [facility] HEMATOLOGY RDW 13.7 11.5 - 12/29 [facility] 14.5 /2019 [facility] HEMATOLOGY Platelet 185 133 - 450 12/[address] HEMATOLOGY MPV 9.0 7.4 - 10.4 12/[address] HEMATOLOGY PT 13.9 12.0 - 12/29 [facility] 14.7 /2019 [facility] HEMATOLOGY INR 1.07 0.85 - 12/29 [place] 1.17 /2019 [facility] HEMATOLOGY PTT 27.8 22.9 - 12/29 [facility] 35.8 /[address] [place] [address] PARATHYROID Ca Ion WB 1.07 1.05 - 12/29 [facility] PROFILE [address] [place] [address] PARATHYROID Ca Norm WB 1.06 1.05 - 12/29 [facility] PROFILE 1.25 [facility] CARDIAC Troponin-I <0.02 0.00 - 12/29 [facility] ENZYMES 0.[address] [place] [address] CARDIAC BNP 90 <=100 12/29 [facility] ENZYMES pg/mL [address] [place] [address] CHEM PANEL ALT 28 0 - 65 12/[address] CHEM PANEL Albumin Lvl 3.6 3.5 - 5.0 12/[address] CHEM PANEL Alk Phos 46 39 - 136 12/[address] CHEM PANEL Bili Direct 0.1 0.0 - 0.3 12/[address] CHEM PANEL Bili Total 0.6 0.2 - 1.3 12/[address] CHEM PANEL Bili Indirect 0.5 0.0 - 1.0 12/[address] CHEM PANEL Total Protein 7.2 6.4 - 8.4 12/[address] CHEM PANEL AST 22 0 - 37 12/[address] CHEM PANEL Globulin 3.6 2.7 - 4.2 12/[address] CHEM PANEL A/G Ratio 1.0 0.7 - 1.6 12/[address] Center BLOOD BANK ABO/Rh A POS 12/29 [facility] RESULTS [facility] BLOOD BANK Antibody Scrn Negative 12/29 [facility] as RESULTS (12/29/19 8:48 PM) [facility] CHEM PANEL Magnesium Lvl 2.0 1.8 - 2.4 12/29 [facility] CHEM PANEL Phosphorus 4.2 2.5 - 4.5 12/[address] CHEM PANEL Glucose Lvl 82 70 - 99 12/29 [facility]2019 [facility] CHEM PANEL BUN 11 7 - 22 12/29 [facility]2019 [facility] CHEM PANEL Creatinine 0.96 0.50 - 12/29 [facility] Lvl 1.40 [facility] CHEM PANEL Sodium Lvl 137 135 - 145 12/29 [facility]2019 [facility] CHEM PANEL Potassium Lvl 4.2 3.5 - 5.1 12/29 [facility] CHEM PANEL Chloride Lvl 104 95 - 109 12/29 [facility] CHEM PANEL CO2 25 24 - 32 12/[address] CHEM PANEL Calcium Lvl 8.8 8.5 - 10.5 12/29 [facility] CHEM PANEL AGAP 12.2 10.0 - 12/29 [facility] 20.0 [facility] CHEM PANEL B/C Ratio 11 6 - 25 12/29 [facility]2019 [facility] CHEM PANEL eGFR 103 12/29 Result [...] PANEL ALT 28 0 - 65 12/[address] CHEM PANEL Albumin Lvl 3.6 3.5 - 5.0 12/[address] CHEM PANEL Alk Phos 44 39 - 136 12/[address] CHEM PANEL Bili Total 0.6 0.2 - 1.3 12/[address] CHEM PANEL Total Protein 7.1 6.4 - 8.4 12/[place] [address] CHEM PANEL AST 20 0 - 37 12/[address] CHEM PANEL Globulin 3.5 2.7 - 4.2 12/[address] CHEM PANEL A/G Ratio 1.0 0.7 - 1.6 12/[address] HEMATOLOGY PTT 30.4 22.9 - 12/29 [place] 35.[address] HEMATOLOGY WBC 7.0 3.7 - 10.4 12/[address] HEMATOLOGY RBC 4.50 4.70 - 12/29 [place] 6.[address] HEMATOLOGY Hgb 14.4 14.0 - 12/29 [place] 18.[address] HEMATOLOGY Hct 41.4 42.0 - 12/29 [place] 54.0 2019 [facility] HEMATOLOGY MCV 92.1 80.0 - 12/29 [place] [address] HEMATOLOGY MCH 32.0 27.0 - 12/29 [place] 31.0 2019 [facility] HEMATOLOGY MCHC 34.8 32.0 - 12/29 [place] [address] HEMATOLOGY RDW 13.7 11.5 - 12/29 [place] 14.5 /2019 [facility] HEMATOLOGY Platelet 203 133 - 450 12/[address] HEMATOLOGY MPV 9.5 7.4 - 10.4 12/[address] HEMATOLOGY Segs 49.7 45.0 - 12/29 [place] [address] HEMATOLOGY Lymphocytes 33.2 20.0 - 12/29 [place] [address] HEMATOLOGY Monocytes 9.0 2.0 - 12.0 12/[address] HEMATOLOGY Eosinophils 7.0 0.0 - 4.0 12/[address] HEMATOLOGY Basophils 1.1 0.0 - 1.0 12/[address] HEMATOLOGY Neutrophils # 3.5 1.5 - 8.1 12/[address] HEMATOLOGY Lymphocytes # 2.3 1.0 - 5.5 12/[address] HEMATOLOGY Monocytes # 0.6 0.0 - 0.8 12/[address] HEMATOLOGY Eosinophils # 0.5 0.0 - 0.5 12/[address] HEMATOLOGY Basophils # 0.1 0.0 - 0.2 12/[address] LIPIDS Trig 88 <=149 12/29 [facility] mg/dL [address] LIPIDS Chol 142 <=199 12/29 [facility] mg/dL [address] [place] [address] LIPIDS HDL 43 >=61 mg/dL 12/[address] LIPIDS CHD Risk 3.30 4.00 - 12/29 [facility] 7.30 [facility] LIPIDS LDL 81 <=99 mg/dL 12/29 [facility] (Calculated) [address] LIPIDS VLDL 18 12/[address] PARATHYROID Ca Ion WB 1.12 1.05 - 12/29 [facility] PROFILE [address]. [address] PARATHYROID Ca Norm WB 1.09 1.05 - 12/29 [facility] PROFILE 1. 2019 [facility] SPECIAL Hgb A1C 5.5 <=5.6 % 12/29 [facility] CHEMISTRY [address] IMMUNOLOGY Coronavirus Not Detected Not 12/26 T shaina (COVID-19) *NA* Detected /2019 Medical RAFAEL (12/27/19 11:15 AM) [employer] CHEM PANEL Glucose Lvl 120 65 - 99 08/30 Result Comment: Medical
Group Fasting reference interval

For someone without known diabetes, a glucose value
bet ween 100 and 125 mg/dL is consistent with
p rediabetes and should be confirmed with a
follow- up test.

Lab test performed by:
[facility]
[address]
[place] [phone]
[facility] Peace CHEM PANEL BUN 21 7 - 25 08/30 Medical Group CHEM PANEL Creatinine 1.16 0.60 - 08/30 MH Lvl 1.35 /2019 Medical Group CHEM PANEL eGFR NON-AFR. 82 > OR = 60 08/30 [place] mL/min/1.7 /2019 Medical 3m2 Group CHEM PANEL eGFR 95 > OR = 60 08/30 [place] mL/min/1.7 /2019 Medical 3m2 Group CHEM PANEL [...] Comment: Medical
Lab Group test performed by:
[facility]
[address]
[place] [address]
[facility]bene[facility] Peace HEMATOLOGY RBC X 10x6 4.46 4.20 - 08/30 5.80 /2019 Medical Group HEMATOLOGY Hgb 14.2 13.2 - 08/30 MH 17.1 [facility] HEMATOLOGY Hct 41.2 38.5 - 08/30 50.0 [facility] HEMATOLOGY MCV 92.4 80.0 - 08/30 100.0 [facility] HEMATOLOGY MCH 31.8 27.0 - 08/30 33.0 [facility] HEMATOLOGY MCHC 34.5 32.0 - 08/30 36.0 [facility] HEMATOLOGY RDW 13.0 11.0 - 08/30 15.0 [facility] HEMATOLOGY Platelet 191 140 - 400 08/30 [facility] HEMATOLOGY MPV 13.0 7.5 - 12.5 08/30 [facility] HEMATOLOGY Neutrophils # 4767 1500 - 08/30 [address] [facility] HEMATOLOGY Lymphocytes # 1491 850 - 3900 08/30 [facility] HEMATOLOGY Monocytes # 469 200 - 950 08/30 [facility] HEMATOLOGY Eosinophils # 210 15 - 500 08/30 [facility] HEMATOLOGY Basophils # 63 0 - 200 08/30 [facility] HEMATOLOGY Segs 68.1 08/30 [facility] HEMATOLOGY Lymphocytes 21.3 08/30 [facility] HEMATOLOGY Monocytes 6.7 08/30 [facility] HEMATOLOGY Eosinophils 3.0 08/30 [facility] HEMATOLOGY Basophils 0.9 08/30 [facility] Pathology Reports No Data Provided for This Section Diagnostic Reports Report Value Date Source Chest 2 views DX EXAM: XR CHEST 2 VIEWS 12/31/2019 [facility] Medical DATE: 12/31/2019 3:00 AM CDT [...] EXAM: AP VIEW OF THE CHEST 12/30/2019 [facility] [place] Medical Placement DX DATE: 12/30/2019 7:16 PM CDT [facility] er INDICATION: Line Placement - Status [...] DX EXAM: XR CHEST 2 VIEWS 12/30/2019 [facility] DATE: 12/30/2019 3:00 CDT Center INDICATION: Heart [...] oup Temperature Oral (F) 98.4 F 01/03/2020 [facility] indira Group Height 177.8 cm 01/03/2020 Medical Grou p Weight 102.182 01/03/2020 Medical Grou p BMI Calculated 32.32 01/03/2020 Medical Gr oup Systolic (mm Hg) 103 12/31/2019 [facility] dical Center Diastolic (mm Hg) 59 12/31/2019 [facility] Systolic (mm Hg) 96 12/31/2019 [facility] dical Center Diastolic (mm Hg) 52 12/31/2019 [facility] Systolic (mm Hg) 93 12/31/2019 [facility] Diastolic (mm Hg) 57 12/31/2019 [facility] Temperature Oral (F) 98.6 F 12/31/2019 [facility] Respitory Rate 55 12/31/2019 [facility] Temperature Oral (F) 97.7 F 12/31/2019 [facility] Temperature Oral (F) 99.0 F 12/31/2019 [facility] Respitory Rate 21 12/31/2019 [facility] Respitory Rate 27 12/31/2019 [facility] Height 177.8 cm 12/30/2019 [facility] Weight 99.2 12/30/2019 [facility] BMI Calculated 31.38 12/30/2019 [facility] Height 177.8 cm 12/23/2019 [facility] Weight 100 12/23/2019 [facility] BMI Calculated 31.63 12/23/2019 [facility] Systolic (mm Hg) 91 09/14/2019 Medical Group [...] Location Location Encounter Encounter Reason Attending ADM [place] Stat us Source Details Type Number For Provider Date Date Visit Outpatient [id number] 08/30 [facility]2019 [place] [facility] Outpatient [id number] Dinora 08/30 08/31 Primary Nam /2019 [facility] Phone [id number] 08/30 09/01 Primary Message /2019 [facility] Between [id number] 08/31 09/01 Primary Visit /2019 [facility] Outpatient [id number] 09/13 [facility] [id number] Dinora 09/13 09/14 Primary Nam /2019 [facility] Inpatient [id number] Mohammad 12/29 12/30 [facility] Madjid /2019 [facility] PreReg [id number] Khashayar 12/29 12/29 [facility] Hematpour /2019 [facility] Outpatient [id number] 01/02 Active [facility] /2019 [facility] Outpatient [id number] 01/02 Primary Nam /2019 [facility] Procedures Procedure Code Date Perfomer Comments Source ICD - Internal [id number] 12/30/2019 Medical cardiac Group defibrillator procedure Implantation of [id number] 12/30/2019 [facility] biventricular Group cardiac pacemaker system Assessment and Plan Assessment and Plan Date Source Extracted from:Title: [facility] Progress Note 12/31/2019 [facility] Author: Marbin Figueredo MD Date: 12/31/19 [facility] Progress Note Overnight Events: 34 y/o man, [...] with no acute changes. Troponins negative - [facility] August 2019 showing clean coronaries - s/p [...] agreement with the plan Marbin Figueredo MD Pager-[phone] PGY-4 Pulmonary, Critical Care and Sleep Medicine Extracted from:Title: Discharge Summary * Author: Tony Avendaño MD Date: 12/31/19 Discharge Information Discharge Summary Information Discharge Plan Discharge Summary Plan Discharge Status: improved. Discharge instructions given: to patient. Discharge disposition: [facility] Prescriptions: written and given to patient. Diagnosis Acute HFrEF (heart failure with reduced ejection fraction) (IVC61-DM I50.21, Working, Medical). Course Improving. Education and [...] Coates. Dominic Rodriguez M.D. PGY-2, Internal Medicine [facility]| [facility] DVT: SCD, holding pharmacologic d/t planned procedure [...] results, radiology results, and tracings. 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 Sorto and attending Dr. Degroot Plan of Care No Data Provided for This Section Social History Social History Date Source Social History TypeResponse 12/30/2019 [facility] Smoking Status Former smoker; Type: Cigarettes; [...] concerns: No. Employment/School Status: Employed. 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 Substance Abuse Use: Past. Smoking Status Current every day smoker; Type: Chewing tobacco; Exposure to Tobacco Smoke None; Cigarette Smoking Last 365 Days No; Reg Smoking Cessation Counseling No entered on: 01/03/20 Family History No Data Provided for This Section Advance Directives No Data Provided for This Section Functional Status No Data Provided for This Section
--- OUTSIDE RECORDS SUMMARY | 2020-05-15 23:31 | XMS REPORT | Continuity of Care Document ---
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 [facility] CARDIOMYOP Diagnosis Active 2019-12-30 Memoria ATHY 12-28 09:41:00 l 00:00: Nabeel CARDIOMYOP 00 ATHY Active 12/29/2019 [facility] CCL / BI-V Diagnosis Active 2020-02-22 Memoria ICD W/ 12-18 07:40:00 l ADAMS CCL / 00:00: Nabeel BI-V ICD 00 W/ ADAMS Active 12/19/2019 [facility] Atypical Problem Active 2019-09-04 Mem oria chest pain 21:23:13 l (finding) Atypical Her cisneros chest pain (finding) Active Problem 09/04/2019 [facility] Dyspnea Problem Active 2020-01-06 Ron unique (finding) 01:01:29 l Dyspnea Nabeel (finding) Active Problem 01/06/2020 [facility] Generalize Problem Active 2019-09-04 M emoria d anxiety 21:23:13 l disorder Nabeel (disorder) Generalize d anxiety disorder (disorder) Active Problem 09/04/2019 [facility] Simple Problem Active 2020-01-06 Memor ia obesity 01:01:29 l (disorder) Simple Herm sanam obesity (disorder) Active Problem 01/06/2020 [facility] Sinus Problem Active 2019-09-04 Memor ia tachycardi 21:23:13 l a Sinus [place] (finding) tachycardi a (finding) Active Problem 09/04/2019 [facility] Ventricula Problem Active 2020-01-06 M emoria r 01:01:29 l premature [place] beats Ventricula (disorder) r premature beats (disorder) Active Problem 01/06/2020 [facility] Calculus Problem Active 2020-01-06 Mem oria in biliary 01:01:29 l tract Calculus Alex n (disorder) in biliary tract (disorder) Active Problem 01/06/2020 [facility] Congestive Problem Active 2020-01-06 M emoria heart 01:01:29 l failure Nabeel (disorder) Congestive heart failure (disorder) Active Problem [...] Source Social History 2019-12-30 16:33:17 2019-12-30 16:33:17 [facility] Nabeel Medications Ordered Filled Start Stop Current Ordering Indication Dosage Frequency Signature Comments Components Source Medication Medication Date Date Medication? Clinician (SIG) Name Name citalopram Yes 20 mg = 1 Me moria 20 mg oral 01-02 tab, PO, l tablet 20:53: Daily, # Nabeel 00 90 tab, 0 Refill(s), Pharmacy: [id number], 177.8, cm, 01/03/20 15:26:00 CDT, [...] l MG / 17:51: 10 day, # [place] sennosides, 00 10 tab, 0 HALF-WAY 8.6 MG Refill(s), Oral Tablet called to pharmacy Docusate No 1 tab, PO, Mem oria Sodium 50 9-26 Daily, X l MG / 17:45: 10 day, # Nabeel sennosides, 00 10 tab, 0 HALF-WAY 8.6 MG Refill(s), Oral Tablet called to [...] oral 12-30 cap, PO, l capsule 15:40: [id number], Alex n 00 Please take 5 more [...] Tylenol Extra Strength) Dilaudid No Notes: Memoria - Same as l 03:29: Dilaudid Nabeel 00 Entresto 24 No Notes: Ron unique mg-26 mg 12-30 (Same as: l oral tablet 01:37: Entresto) H erm 00 Avoid in patients with history of angioedema due to ELZBIETA inhibitor or ARB therapy. Do not use concomitan tly or within 36 hours of ELZBIETA inhibitors Minocycline No Notes: Ron unique - (Same l 01:00: as:Minocin [place] 00 ) No milk/antac ids/iron. Diazepam No Notes: Memoria -25 (Same as: l 20:03: Valium) Aspirin 2019-0 No 81 mg, 1 Memori a -25 tab, l 14:00: Route: [place] CHEW, Drug form: CHEWTAB, Daily, Dosing Weight 99.2, kg, Start date: 12/30/19 9:00:00 CDT, Duration: 30 day, Stop date: 01/28/20 9:00:00 CDT Docusate 0 No Notes: Memoria Sodium 50 12-29 (Same as l MG / 14:00: Senokot-S) Nabeel sennosides, 00 Equiv. to HALF-WAY 8.6 MG Monet-Colac Oral Tablet e. sacubitril [...] Route: PO, l valsartan 14:00: Drug Form: He rmann 51 MG Oral 00 TAB, Tablet [...] Alex n tablet, 00 Refill(s) chewable Acetaminoph No Notes: Do M emoria en 12-29 not exceed l 02:15: 4 gm/day. Nabeel (Same as: Tylenol) Potassium 2019- No Notes: Memori a Chloride 12-29 (Same as: l 02:15: KCL) Infuse no faster than 10 mEq/hr if given peripheral ly. sodium No Notes: Memoria phosphate 12-29 Infuse l 02:15: over 4 Nabeel 00 hour. Do not infuse phosphorou s concurrent ly in the same line as TPN or IVF that contains calcium. For double lumen central lines, phosphorou s may be infused in a separate lumen from TPN. potassium 2019- No Notes: Memori a phosphate 12-29 (Same as: l 02:15: K [place] 00 Phosphate) Infuse over 4 hour. Do [...] WASTE: F/P l 02:15: - Sink; E - Municipal Trash Bin Magnesium 2019-0 No Notes: Memori a Oxide 12-29 (Same as: l 02:15: Mag-Ox [place] 00 400) Magnesium oxide 380gg=499p g elemental magnesium Dose=____m g magnesium oxide (___mg elemental magnesium) Calcium 2019-0 No Notes: Memoria Gluconate 12-29 WASTE: F/P l 02:15: - Sink; E Nabeel - Municipal Trash Bin Calcium 0 No Notes: Memoria Carbonate 12-29 (Same As: l 500 MG 02:15: Tums) [place] Chewable 00 Calcium Tablet Carbonate 500 mg = 200 mg elemental calcium Dose = mg calcium carbonate ( mg elemental calcium) Aspirin 81 2020-0 Yes 81 mg = 1 Me moria MG Enteric 6-10 tab, PO, l Coated 16:19: Daily, # [place] Tablet 00 90 tab, 3 Refill(s) Aspirin 2020-0 No 0 Memoria 6-10 Refill(s) l 16:16: Nabeel 00 carvedilol 2020-0 Yes 3.125 mg = M emoria 3.13 MG 6-10 1 tab, PO, l Oral Tablet 16:16: BID, # 60 H ermann [Coreg] 00 tab, 3 Refill(s) Furosemide 2020-0 Yes 40 mg = 1 Me moria 40 MG Oral 6-10 tab, PO, l Tablet 16:16: Daily, # [place] [Lasix] 00 90 tab, 3 Refill(s) lisinopril 2020-0 Yes 5 mg = 1 Mem oria 5 mg oral 6-10 tab, PO, l tablet 16:16: Daily, # [place] 00 90 tab, 3 Refill(s) Hydroxyzine 2020-0 Yes 25 mg = 1 M emoria Hydrochlori 5-27 tab, PO, l de 25 MG 14:09: QID, PRN Rosario nn Oral Tablet 00 Anxiety, X 10 day, # 40 tab, 0 Refill(s), Pharmacy: [facility] #[id number] Atenolol 25 2020-0 No 25 mg = 1 M emoria MG Oral 5-27 tab, PO, l Tablet 14:07: Daily, # Naebel 00 30 tab, 1 Refill(s), Pharmacy: [facility] #[id number] Vital Signs Vital Name Observation Time Observation Value Comments Source Systolic (mm Hg) 2020-01-03 20:26:00 Ron Lees Diastolic (mm Hg) 2020-01-03 20:26:00 Raajn Lees Heart Rate 2020-01-03 20:26:00 [facility] 2020-01-03 20:26:00 Michael Dietrich Temperature Oral (F) 2020-01-03 20:26:00 98.4 F [facility] Height 2020-01-03 20:26:00 177.8 cm [facility] Weight 2020-01-03 20:26:00 [facility] BMI Calculated 2020-01-03 20:26:00 Michael Dietrich Systolic (mm Hg) 2019-12-31 17:00:00 Ron rial Nabeel Diastolic (mm Hg) 2019-12-31 17:00:00 Mem orial [place] Systolic (mm Hg) 2019-12-31 16:00:00 Ron rial [place] Diastolic (mm Hg) 2019-12-31 16:00:00 Mem orial [place] Systolic (mm Hg) 2019-12-31 15:00:00 Ron rial [place] Diastolic (mm Hg) 2019-12-31 15:00:00 Mem orial [place] Temperature Oral (F) 2019-12-31 13:00:00 98.6 F [facility] Nabeel Respitory Rate 2019-12-31 10:00:00 Memori al [place] Temperature Oral (F) 2019-12-31 09:47:00 97.7 F [facility] Nabeel Temperature Oral (F) 2019-12-31 05:27:00 99.0 F [facility] Nabeel Respitory Rate 2019-12-31 02:02:00 Memori al [place] Respitory Rate 2019-12-31 01:30:00 Memori al Nabeel Height 2019-12-30 01:30:00 177.8 cm [facility] Nabeel Weight 2019-12-30 01:30:00 [facility] [place] BMI Calculated 2019-12-30 01:30:00 Memori al Nabeel Height 2019-12-23 17:34:00 177.8 cm [facility] Nabeel Weight 2019-12-23 17:34:00 [facility] BMI Calculated 2019-12-23 17:34:00 Memori al Nabeel Systolic (mm Hg) 2019-09-14 16:15:00 Ron rial Nabeel Diastolic (mm Hg) 2019-09-14 16:15:00 Mem orial [place] Heart Rate 2019-09-14 16:15:00 [facility] [place] Respitory Rate 2019-09-14 16:15:00 Memori al Nabeel Temperature Oral (F) 2019-09-14 16:15:00 97.4 F [facility] Nabeel Height 2019-09-14 16:15:00 177.8 cm [facility] [place] Weight 2019-09-14 16:15:00 [facility] Nabeel BMI Calculated 2019-09-14 16:15:00 Memori al [place] Systolic (mm Hg) 2019-08-31 13:25:00 Ron rial Nabeel Diastolic (mm Hg) 2019-08-31 13:25:00 Mem orial Nabeel Heart Rate 2019-08-31 13:25:00 [facility] Nabeel Respitory Rate 2019-08-31 13:25:00 Rajanori al Nabeel Temperature Oral (F) 2019-08-31 13:25:00 98.1 F Chiquis Nabeel Height 2019-08-31 13:25:00 177.8 cm Chiquis Nabeel Weight 2019-08-31 13:25:00 [facility] BMI Calculated 2019-08-31 13:25:00 Michael al Nabeel Procedures Procedure Date / Time Performed Performing Clinician [facility] e ICD - Internal cardiac 2019-12-30 05:00:00 Samaria ial Nabeel defibrillator procedure Implantation of 2019-12-30 05:00:00 Chiquis cisneros biventricular cardiac pacemaker system Encounters Start End Encounter Admission Attending Care Care Encounter Source Date/Time Date/Time Type Type Clinicians Facility Department ID 2020-01-03 2020-01-03 Outpatient Cyril [facility] [id number] 15:30:00 23:59:59 Dinora 02 2019-12-29 2019-12-31 Outpatient Aminata [facility] [id number] 20:16:00 13:00:00 Mohammad 68 2019-12-30 2019-12-30 Outpatient Hematposteven [facility] [id number] 13:30:00 13:30:00 Khashayar 00 2019-12-27 2019-12-27 Outpatient [facility] [id number] [facility] 08:00:00 08:00:00 2019-09-14 2019-09-14 Outpatient Cyril [facility] [id number] 11:15:00 23:59:59 Dinora 01 2019-09-01 2019-09-02 Outpatient [facility] [id number] 10:59:17 10:59:17 01 2019-08-31 2019-09-01 Outpatient [facility] [id number] 14:36:05 23:59:59 00 2019-08-31 2019-08-31 Outpatient Cyril [facility] [id number] 08:30:00 23:59:59 Dinora 00 Results Test Description Test Time Test Comments Results Result Comments Source HEMATOLOGY 2019-12-31 194 [facility] Rosario nn 05:24:00 HEMATOLOGY 2019-12-31 8.8 [facility] Rosario nn 05:24:00 HEMATOLOGY 2019-12-31 05:24:00 Test Item Value Reference Range Interpretation Comme nts PT (test code = PT) 14.1 s 12.0-14.7 Memorial UbmxaguFEVVYCJYZL6962-21-29 05:24:00 Test Item Value Reference Range Interpretation Comments INR (test code = INR) 1.09 1 0.85-1.17 Memorial KkoqhjxDEHOKGKKQX1383-49-57 05:24:00 Test Item Value Reference Range Interpretation Comments PTT (test code = PTT) 30.6 s 22.9-35.8 Memorial VzewhweSSUJETKVKK8006-25-60 05:24:0061.5[facility] HermannHEMATOLOGY 2019-12-31 05:24:0022.9[facility] EbnlvtpPHHFBMJIFP3103-37-94 05:24:0010.8[facility] ZkldhkbUCXEZJLJBF6401-57-73 05:24:004.1[facility] ScfmthdAPAHLJCIAG5661-71-77 05:24:000.7[facility] InhghvyLVLKRDNEDA1508-98-77 05:24:005.0[facility] RLDTKUCVOR5263-44-82 05:24:001.9[facility] TzkwnvgQBFYWKXOPM7858-23-05 05:24:000.9 [facility] SdqzuwoTXOWEPPATH4754-54-46 05:24:000.3[facility]annHEMATOLOGY 2019-12-31 05:24:000.1[facility] HermannPARATHYROID QCWYXYP8274-25-71 05:24:001.06 [facility] HermannPARATHYROID ZYBNMIH2744-80-02 05:24:001.05[facility] HermannCHEM QTHMH5325-57-59 05:24:0095[facility] HermannCHEM IUJVV2878-77-61 05:24:0020 [facility]ann[facility] SICFP1450-32-06 05:24:001.32[facility] HermannCHEM PANEL 2019-12-31 05:24:94520Assnjlpp HermannCHEM LTVDO2135-57-51 05:24:003.8[facility] HermannCHEM VBBLN7928-30-81 05:24:11135Drjrhuad HermannCHEM LPGCU0667-45-95 05:24:0028[facility] HermannCHEM WWFND8434-83-53 05:24:008.3[facility]annCHE[facility] JGLMU0622-74-61 05:24:008.8[facility]annCHE[facility] IVRBS5566-52-70 05:24:00 Test Item Value Reference Range Interpretation Comments B/C Ratio (test code = B/C Ratio) 15 1 6-25 [facility]annCHE[facility] DWIHM3905-31-43 05:24:0070[facility] HermannCHEM PANEL 2019-12-31 05:24:0026[facility] HermannCHEM YKPFM9016-35-58 05:24:003.4[facility]annCHE[facility] QDRIV7590-44-63 05:24:0043[facility]annCHEM PGVBV4572-80-74 05:24:000.5[facility]annCHEM WZBBM8055-94-23 05:24:006.7[facility]annCHEM UGCMX2197-15-44 05:24:0019[facility]annCHEM NCGRM5638-70-54 05:24:003.3 [facility]annCHEM PNQTX9452-85-93 05:24:00 Test Item Value Reference Range Interpretation Comments A/G Ratio (test code = A/G Ratio) 1.0 1 0.7-1.6 [facility]annCHE[facility] TXXEZ3661-19-27 05:24:002.0[facility] HermannCHEM PANEL 2019-12-31 05:24:005.2[facility] ZgrsfveLPAUUWRXIM2011-39-49 05:24:008.1[facility] PliimbzVSPSSFKVDJ3282-52-79 05:24:004.33[facility] AbkvecgNUHJRZWUTH6884-35-97 05:24:0014.1[facility] LdwzjhhHVPOWZZLEW8901-32-61 05:24:0040.3[facility] [place] UCGUMGFDMH5895-29-71 05:24:0093.1[facility] ZticmteEQRMAPUEPW9918-54-85 05:24:00 Test Item Value Reference Range Interpretation Comments MCH (test code = MCH) 32.6 pg 27.0-31.0 [facility] QgzyqmrQGVYEYMIXI7766-51-84 05:24:0035.0[facility] HermannHEMATOLOGY 2019-12-31 05:24:0013.7[facility] HermannBACTERIAL - QEOMYMED5390-50-89 13:59:00 Positive 1*ABN*(12/30/19 8:59 AM)[facility] EfqymxnSFQHODOZCN6529-86-96 10:13:00 4.47[facility] PidyktbRFACMHHKGN5131-35-71 10:13:0014.4[facility] HermannHEMATOLOGY 2019-12-30 10:13:0042.0[facility] CkxvyjjKGILHNQRDY5618-24-59 10:13:0094.1[facility] VdkwupcBQYIBGPAJH8338-39-15 10:13:00 Test Item Value Reference Range Interpretation Comments MCH (test code = MCH) 32.2 pg 27.0-31.0 [facility] AlvymbyXYRKMDNYMK1310-05-89 10:13:0034.2[facility] HermannHEMATOLOGY 2019-12-30 10:13:0013.7[facility] SlgycagWOLMPICOUT7716-46-50 10:13:11900Hdnglcwq FxalwncZSGNCXOECQ6780-34-11 10:13:009.0[facility] FnqbulwJGCZIVIHEL6344-85-17 10:13:00 Test Item Value Reference Range Interpretation Comments PT (test code = PT) 13.9 s 12.0-14.7 [facility] LgwvfvmJDMEMYYDNY2200-58-07 10:13:00 Test Item Value Reference Range Interpretation Comments INR (test code = INR) 1.07 1 0.85-1.17 [facility] QvqbvnhHYAUHMDEYG0343-62-50 10:13:00 Test Item Value Reference Range Interpretation Comments PTT (test code = PTT) 27.8 s 22.9-35.8 [facility] HermannPARATHYROID ZPCXZYS4530-05-20 10:13:001.07[facility] PARATHYROID EXYXILG5042-77-97 10:13:001.06[facility] HermannCHEM GTFJS9535-63-42 10:13:0085[facility] HermannCHEM FPTOS8033-50-36 10:13:0015[facility] HermannCHEM PTAMP5336-00-12 10:13:001.05[facility] HermannCHEM FDNPJ2246-75-05 10:13:05937 [facility]annCHE[facility] MVQVP8418-43-89 10:13:003.7[facility] HermannCHEM PANEL 2019-12-30 10:13:65992Dnroidas HermannCHEM HRRBT9821-86-87 10:13:0026[facility] HermannCHEM VOLMA5362-89-44 10:13:008.6[facility]annCHEM YJHZA1425-63-46 10:13:008.7[facility] HermannCHEM PKLVU2400-68-05 10:13:0093[facility]annCHEM VTVYM1099-84-88 10:13:002.2[facility] HermannCHEM NZAEF0274-68-47 10:13:004.1 [facility] OtdfewbJYXNQRCBLI9122-82-01 10:13:0053.7[facility] HermannHEMATOLOGY 2019-12-30 10:13:0029.6[facility] PssserqDPPDWHIRYD7412-69-67 10:13:008.9[facility] JalexmbQVZWTCRHAZ7217-59-38 10:13:006.8[facility] OkhywfiQTDQJWADKL4143-14-81 10:13:001.0[facility] YdwctbdCZDGTVKMDO0167-82-92 10:13:004.0[facility] VFQLMMKRYY2584-91-92 10:13:002.2[facility] PfishfjTIXPKRDRCD9325-52-73 10:13:000.7 [facility] RbugizdWDGLCKXYNN5163-76-21 10:13:000.5[facility] HermannHEMATOLOGY 2019-12-30 10:13:000.1[facility] RgcyedcSTTPQXBXUR4532-08-35 10:13:007.5[facility] HermannCARDIAC YYVPGYW1851-24-32 02:05:00<0.02[facility] HermannCARDIAC ENZYMES 2019-12-30 02:05:0090[facility] HermannCHEM SQTKJ8008-25-89 02:05:0028[facility] HermannCHEM BLZEK7058-71-22 02:05:003.6[facility] HermannCHEM PAAPG2163-42-81 02:05:0046[facility] HermannCHEM MCPFG1664-74-93 02:05:000.1[facility] HermannCHEM OUVDQ9813-91-31 02:05:000.emorial HermannCHEM CVHLT3413-60-04 02:05:000.5 [facility]annCHEM RWVBP0100-33-38 02:05:007.2[facility] HermannCHEM PANEL 2019-12-30 02:05:0022[facility] HermannCHEM UOBHK1127-76-38 02:05:003.6[facility] HermannCHEM TFURG6062-37-87 02:05:00 Test Item Value Reference Range Interpretation Comments A/G Ratio (test code = A/G Ratio) 1.0 1 0.7-1.6 [facility] HermannBLOOD BANK YMDWKUF3235-06-64 01:48:00Negative (12/29/19 8:48 PM) [facility] HermannCHEM OPEOX3958-17-79 01:48:002.0[facility] HermannCHEM PANEL 2019-12-30 01:48:004.2[facility] HermannCHEM HTHNN0176-20-55 01:48:0082[facility] HermannCHEM MGADL1399-92-17 01:48:0011[facility] HermannCHEM GNCWZ1371-67-08 01:48:000.96[facility] HermannCHEM VOCJA8253-56-45 01:48:61767Lwbybidp HermannCHEM KWWZF6388-74-19 01:48:004.2[facility] HermannCHEM OECNJ8478-61-13 01:48:40124 [facility]annCHEM HVRJZ7058-56-72 01:48:0025[facility] HermannCHEM PANEL 2019-12-30 01:48:008.8[facility] HermannCHEM THJGD2544-32-23 01:48:0012.2[facility] HermannCHEM CMTOY5381-78-56 01:48:00 Test Item Value Reference Range Interpretation Comments B/C Ratio (test code = B/C Ratio) 11 09-28 [facility] HermannCHEM WVOYA9128-23-68 01:48:23375Ipkrhxhw HermannCHEM PANEL 2019-12-30 01:48:0028[facility] HermannCHEM WOJZZ7257-94-09 01:48:003.6[facility] HermannCHEM YSVNW6767-08-49 01:48:0044[facility] HermannCHEM HPVDG4280-66-35 01:48:000.6[facility] HermannCHEM MCMSG5537-67-84 01:48:007.1[facility] HermannCHEM FXAJX6634-07-56 01:48:0020[facility] HermannCHEM JHXSH4394-55-68 01:48:003.5 [facility] HermannCHEM TDIYL4956-96-17 01:48:00 Test Item Value Reference Range Interpretation Comments A/G Ratio (test code = A/G Ratio) 1.0 1 0.7-1.6 [facility] HpwqeqnEIGYRBZXON2042-73-53 01:48:00 Test Item Value Reference Range Interpretation Comments PTT (test code = PTT) 30.4 s 22.9-35.8 [facility] TmqrzayXHCCVYBHAK7770-05-61 01:48:007.0[facility] HermannHEMATOLOGY 2019-12-30 01:48:004.50[facility] ItydvwaGEDJKQEGBW4501-05-77 01:48:0014.4[facility] UvxradmXUTGSBRZVI6724-53-12 01:48:0041.4[facility] DtirvevCHRQNYXCNC1341-58-32 01:48:0092.1[facility] WexrhkwUVUXIOSNMP2204-68-70 01:48:00 Test Item Value Reference Range Interpretation Comments MCH (test code = MCH) 32.0 pg 27.0-31.0 [facility] DagunueQNRGRBWXLI7136-44-95 01:48:0034.8[facility] HermannHEMATOLOGY 2019-12-30 01:48:0013.7[facility] SwwxltvEMPKLEVVEI1848-58-67 01:48:90201Iayyxqeb HmrfvvzOBWNMVYCIM6697-96-31 01:48:009.5[facility] KqsrgeeEGTCXFKFOP4892-56-89 01:48:0049.7[facility] YkbficqYMEGQNSWWT4941-90-09 01:48:0033.2[facility] [place] FRCBLFYRUV6052-45-57 01:48:009.0[facility] FdoaiacKQSLBNTDZK5416-78-21 01:48:007.0 [facility] HdnhzspXQHNRCHDVX9690-63-34 01:48:001.1[facility] HermannHEMATOLOGY 2019-12-30 01:48:003.5[facility] ElpphalFGWQDWSIAL4108-14-82 01:48:002.3[facility] FzjtzizGJWECIKSPB4699-89-85 01:48:000.6[facility] KbpdvdeIBZSECMPOK5594-61-20 01:48:000.5[facility] TsaajgfUBHAZBJOIB1641-28-94 01:48:000.1[facility] NCTAMO9819-12-04 01:48:0088[facility] ObbqjbsEWPTQB7448-98-24 01:48:23099Eibnxhuy GthsxbdPYDREC9521-03-01 01:48:0043[facility] BkydsxfKCMQMS8211-49-25 01:48:00 Test Item Value Reference Range Interpretation Comments CHD Risk (test code = CHD Risk) 3.30 1 4.00-7.30 [facility] RlvjzpzAWUWMN0297-06-98 01:48:0081[facility] AioqbupQBZQXN9086-82-68 01:48:00 Test Item Value Reference Range Interpretation Comments VLDL (test code = VLDL) 18 1 [facility] HermannPARATHYROID WQMDRHY8650-27-93 01:48:001.12[facility] PARATHYROID FKAEPXR6815-35-40 01:48:001.09[facility] HermannSPECIAL CHEMISTRY 2019-12-30 01:48:005.5[facility] CfkegjdVHOBULBUCB5561-09-07 16:15:00Not Detected *NA*(12/27/19 11:15 AM)[facility] HermannCHEM VOEIM9130-67-75 13:52:62849Sezdgapn HermannCHEM CSCWA9931-19-20 13:52:0021[facility] HermannCHEM XUVUO2471-15-18 13:52:001.16[facility] HermannCHEM VMDMM7796-30-09 13:52:0082[facility] HermannCHEM PNOHH9717-96-44 13:52:0095[facility] HermannCHEM SYUBB5436-05-35 13:52:31493 [facility] HermannCHEM FDHIY1170-18-63 13:52:004.1[facility] HermannCHEM PANEL 2019-08-31 13:52:83982Fzdxscuv HermannCHEM CKHAL7837-93-73 13:52:0026[facility] HermannCHEM VDHOK8496-80-78 13:52:009.0[facility] HermannCHEM ZKGHX3762-26-86 13:52:005.9[facility] HermannCHEM WCJCG2302-53-65 13:52:003.8[facility] HermannCHEM IQAJS2896-05-22 13:52:002.1[facility] HermannCHEM YUMYT8650-37-66 13:52:001.8 [facility] HermannCHEM ZXWWO2528-58-04 13:52:000.8[facility] HermannCHE[facility] PANEL 2019-08-31 13:52:0047[facility]annCHE[facility] IZHUN8487-67-68 13:52:0021[facility]annCHE[facility] QCCSP2147-26-90 13:52:0043[facility] XttoiznAACOTQCFVZ6190-41-15 13:52:007.0[facility] FabbtucKQRYTJGJVF0462-55-15 13:52:004.46[facility] VJWEPTERHJ9229-53-04 13:52:0014.2[facility] RlpqxrqSTBFZQDZTW9784-10-56 13:52:00 41.2[facility] TcbgpfjKSFIRLXBBF8915-74-66 13:52:0092.4[facility]annHEMATOLOGY 2019-08-31 13:52:00 Test Item Value Reference Range Interpretation Comments MCH (test code = MCH) 31.8 pg 27.0-33.0 [facility] McjjuucHJWWTMPDWH7296-35-05 13:52:0034.5[facility]annHEMATOLOGY 2019-08-31 13:52:0013.0[facility] KnqukhkRVCKLWSTMK6551-37-74 13:52:50996Hvlypdej RaeoobyGKDORGUYEW2361-46-48 13:52:0013.0[facility] JkiswbwZICWPTQCRE0635-64-41 13:52:535874Kdeiywgt PnphvytABNDHONCPV5267-73-57 13:52:321924Zachkkpv [place] IACHDNMWKX0857-84-40 13:52:83302Pdemamfe EfseipaHPOHXPXVOL6945-57-00 13:52:76598 [facility] MsblutuGDJLVKXHID8066-36-96 13:52:0063[facility]HEMATOLOGY 2019-08-31 13:52:0068.1[facility] ZtezpplJDUCOGJWIG0326-99-64 13:52:0021.3[facility] JlldegbIKKYATGSLD4652-39-81 13:52:006.7[facility] EjcypccMVDKVPFHZS0461-47-33 13:52:003.0[facility] YqgivtcCUMATOTGNS3741-96-74 13:52:000.9[facility]
== END 2020-05-14 16:39 | disposition home or self-care (01) ==
LOC: ER 14:16
DX: R07.9 Chest pain, unspecified (principal); R06.02 Shortness of breath; Z95.0 Presence of cardiac pacemaker
CPT/HCPCS: 36415; 71045; 80048; 80076; 83735; 83880; 84484; 85025; 85610; 93005; 99285

== ENCOUNTER 2021-09-10 15:44 | Emergency (ER) | payer OTHER ==
--- OUTSIDE RECORDS SUMMARY | 2021-09-10 15:49 | XMS REPORT | Continuity of Care Document ---
:1985 Author Organization [facility] t Address [address] [place] [address] Care Team Providers Name Role Phone LANE FERNANDEZ Attending Clinician Unavailable DAVID VANG Attending Clinician Unavailable HEMATPOTYLER Attending Clinician Unavailable Payers Payer Name Policy Type Policy Number Effective Date Expiration Date S ource MEDICAID COMM [id number] 2020 HEALTH CHOICE 00:00:00 Problems Condition Condition Condition Status Onset Resolution Last Treating Co mments Source Name Details Category Date Date Treatment Clinician Date I50.9 Diagnosis Active 2020-06-29 Mem oria 3-17 10:21:00 l I50.9 00:00: [place] 00 Active 06/20/2020 [facility] 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 [facility] CARDIOMYOP Diagnosis Active 2019-12-30 Memoria ATHY 12-28 09:41:00 l 00:00: Nabeel CARDIOMYOP 00 ATHY Active 12/29/2019 [facility] CCL / BI-V Diagnosis Active 2020-02-22 Memoria ICD W/ 12-18 07:40:00 l ADAMS CCL / 00:00: Nabeel BI-V ICD 00 W/ ADAMS Active 12/19/2019 [facility] Atypical Problem Active 2019-09-04 Mem oria chest pain 21:23:13 l (finding) Atypical Her cisneros chest pain (finding) Active Problem 09/04/2019 [facility] Generalize Problem Active 2019-09-04 M emoria d anxiety 21:23:13 l disorder [place] (disorder) Generalize d anxiety disorder (disorder) Active Problem 09/04/2019 [facility] Sinus Problem Active 2019-09-04 Memor ia tachycardi 21:23:13 l a Sinus [place] (finding) tachycardi a (finding) Active Problem 09/04/2019 [facility] Anxiety Problem Active 2020-06-24 Ron unique disorder 22:39:38 l (disorder) Anxiety Her cisneros disorder (disorder) Active Problem 06/24/2020 [facility] Calculus Problem Active 2020-06-24 Mem oria in biliary 22:39:38 l tract Calculus Alex n (disorder) in biliary tract (disorder) Active Problem 06/24/2020 [facility] Cardiomyop Problem Active 2020-06-24 M emoria athy 22:39:38 l (disorder) Alex n Cardiomyop athy (disorder) Active Problem 06/24/2020 [facility] Congestive Problem Active 2020-06-24 M emoria heart 22:39:38 l failure [place] (disorder) Congestive heart failure (disorder) Active Problem 06/24/2020 [facility] Dyspnea Problem Active 2020-06-24 Ron unique (finding) 22:39:38 l Dyspnea Nabeel (finding) Active Problem 06/24/2020 [facility] Impaired Problem Active 2020-06-24 Mem oria fasting 22:39:38 l glycaemia Impaired Her cisneros (disorder) fasting glycaemia (disorder) Active Problem 06/24/2020 [facility] Simple Problem Active 2020-06-24 Memor ia obesity 22:39:38 l (disorder) Simple Herm sanam obesity (disorder) Active Problem 06/24/2020 [facility] Sleep Problem Active 2020-06-24 Memor ia apnea 22:39:38 l (finding) Sleep Alex n apnea (finding) Active Problem 06/24/2020 [facility] Ventricula Problem Active 2020-06-24 M emoria r 22:39:38 l premature Nabeel beats Ventricula (disorder) r premature beats (disorder) Active Problem 06/24/2020 [facility] Allergies, Adverse Reactions, Alerts Allergy Allergy Status Severity Reaction(s) Onset Inactive Treating Comm ents Source Name Type Date Date Clinician SULFA Allergy Active High Hives [facility] ([facility]ULF[facility] 12[facility]13 [facility]) sulfa sulfa Active Memoria drugs drugs l [place] Social History Social Habit Start Date Stop Date Quantity Comments Source Social History 2019-08-31 2019-08-31 [facility] 13:28:15 13:28:15 Smoking Status Start Date Stop Date Source Social History 2019-12-30 16:33:17 2019-12-30 16:33:17 [facility] Medications Ordered Filled Start Stop Current Ordering Indication Dosage Frequency Signature Comments Components Source Medication Medication Date Date Medication? Clinician (SIG) Name Name citalopram Yes 20 mg = 1 Me moria 20 mg oral 01-02 tab, PO, l tablet 20:53: Daily, # Nabeel 00 90 tab, 0 Refill(s), Pharmacy: [id number], 177.8, cm, 01/03/20 [...] 1 tab, PO, Mem oria Sodium 50 - Daily, X l MG / 17:51: 10 day, # Nabeel sennosides, 00 10 tab, 0 [facility] 8.6 MG Refill(s), Oral Tablet called to pharmacy Docusate No 1 tab, PO, Mem oria Sodium 50 - Daily, X l MG / 17:45: 10 day, # Nabeel sennosides, 00 10 tab, 0 [facility] HOME 8.6 MG Refill(s), Oral Tablet called to [...] l Oral Tablet 15:40: Q6H, PRN He 00 Pain Score 1-3, X 7 day, # 14 tab, 0 Refill(s) minocycline Yes 100 mg = 1 Memoria 100 mg oral 12-30 cap, PO, l capsule 15:40: [id number], Alex n 00 Please take 5 more days of antibiotic s. 1 pill two time daily., X 5 day, # 10 cap, 0 Refill(s) sacubitril Yes 1 tab, PO, M emoria 24 MG / 12-30 BID, # 60 l valsartan 15:40: tab, 2 Alex n 26 MG Oral 00 Refill(s) Tablet Zofran No Notes: Memoria 12-30 (Same as: l 09:42: Zofran) [place] MEDICATION WASTE Product Size: 4 mg Product Wasted: ___ mg Acetaminoph Yes Notes: Max Memoria en 12-30 acetaminop l 05:00: hen 4000 Nabeel 00 mg/day (4 gm/day). (Same as: Tylenol Extra Strength) Dilaudid No Notes: Memoria 12-30 Same as l 03:29: Dilaudid [place] Entresto 24 No Notes: Ron unique mg-26 mg 12-30 (Same as: l oral tablet 01:37: Entresto) H ermann 00 Avoid in patients with history of angioedema due to ELZBIETA inhibitor or ARB therapy. Do not use concomitan tly or within 36 hours of ELZBIETA inhibitors Minocycline No Notes: Ron unique 12-30 (Same l 01:00: as:Minocin [place] 00 ) No milk/antac ids/iron. Diazepam No Notes: Memoria 12-29 (Same as: l 20:03: Valium) [place] 00 Aspirin No 81 mg, 1 Memori a 12-29 tab, l 14:00: Route: [place] 00 CHEW, Drug form: CHEWTAB, Daily, Dosing Weight 99.2, kg, Start date: 12/30/19 9:00:00 CDT, Duration: 30 day, Stop date: 01/28/20 9:00:00 CDT Docusate No Notes: Memoria Sodium 50 -25 (Same as l MG / 14:00: Senokot-S) [place] [facility] Equiv[facility] to [facility] 8.6 MG Monet-Colac Oral Tablet e. sacubitril No Notes: Memor ia 24 MG / 25 (Same as: l valsartan 14:00: Entresto) Her cisneros 26 MG Oral 00 Avoid in Tablet patients [Entresto] with history of angioedema due to ELZBIETA inhibitor or ARB therapy. Do not use concomitan tly or within 36 hours of ELZBIETA inhibitors sacubitril No 1 tab, Memor ia 49 MG / 25 Route: PO, l valsartan 14:00: Drug Form: He rmann 51 MG Oral 00 TAB, Tablet Dosing [Entresto] Weight 99.2, kg, BID, Start date: 12/30/19 9:00:00 CDT, Duration: 30 day, Stop date: 01/28/20 17:00:00 CDT heparin 2019-0 No Notes: Memoria - porcine l 13:00: heparin Nabeel 00 Miralax 2020-0 No Notes: Memoria 9-25 Dissolve l 03:46: in 8 oz of [place] 00 water or juice. (Same as: Miralax) sacubitril 2020-0 No 1 tab, PO, M emoria 49 MG / 12-29 BID, # 28 l valsartan 02:20: tab, 0 Alex n 51 MG Oral 00 Refill(s) Tablet [Entresto] Adult No 81 mg = 1 Memoria Aspirin 81 - tab, CHEW, l mg oral 02:20: Daily, 0 Alex n tablet, 00 Refill(s) chewable Acetaminoph 2019-0 No Notes: Do M emoria en 12-29 not exceed l 02:15: 4 gm/day. [place] 00 (Same as: Tylenol) Potassium 2019-0 No Notes: Memori a Chloride -25 (Same as: l 02:15: KCL) Infuse no faster than 10 mEq/hr if given peripheral ly. sodium 2019- No Notes: Memoria phosphate -25 Infuse l 02:15: over 4 Nabeel 00 hour. Do not infuse phosphorou s concurrent ly in the same line as TPN or IVF that contains calcium. For double lumen central lines, phosphorou s may be infused in a separate lumen from TPN. potassium 2019-0 No Notes: Memori a phosphate -25 (Same as: l 02:15: K Nabeel 00 Phosphate) Infuse over 4 hour. Do not infuse phosphorou s concurrent ly in the same line as TPN or IVF that contains calcium. For double lumen central lines, phosphorou s may be infused in a separate lumen from TPN. potassium 2020-0 No Notes: Memori a phosphate-s -25 (Same as: l odium 02:15: Phos-NaK) Nabeel phosphate 00 Each 1.5 250 mg-280 gm pkt has mg-160 mg 250mg oral powder phosphorou for s. Mix reconstitut w/2.5oz ion water and stir. Magnesium 2020-0 No Notes: Memori a Sulfate 9-25 WASTE: F/P l 02:15: - Sink; E Nabeel 00 - Municipal Trash Bin Magnesium No Notes: Memori a Oxide 12-29 (Same as: l 02:15: Mag-Ox Nabeel 00 400) Magnesium oxide 725ma=625m g elemental magnesium Dose=____m g magnesium oxide (___mg elemental magnesium) Calcium No Notes: Memoria Gluconate 12-29 WASTE: F/P l 02:15: - Sink; E Nabeel 00 - Municipal Trash Bin Calcium No Notes: Memoria Carbonate 12-29 (Same As: l 500 MG 02:15: Tums) [place] Chewable 00 Calcium Tablet Carbonate 500 mg = 200 mg elemental calcium Dose = mg calcium carbonate ( mg elemental calcium) Aspirin 81 2019-0 Yes 81 mg = 1 Me moria MG Enteric 6-10 tab, PO, l Coated 16:19: Daily, # Nabeel Tablet 00 90 tab, 3 Refill(s) Aspirin 2019-0 No 0 Memoria 6-10 Refill(s) l 16:16: Nabeel 00 carvedilol 2019-0 Yes 3.125 mg = M emoria 3.13 MG 6-10 1 tab, PO, l Oral Tablet 16:16: BID, # 60 H ermann [Coreg] 00 tab, 3 Refill(s) Furosemide 2019-0 Yes 40 mg = 1 Me moria 40 MG Oral 6-10 tab, PO, l Tablet 16:16: Daily, # Nabeel [Lasix] 00 90 tab, 3 Refill(s) lisinopril 2019-0 Yes 5 mg = 1 Mem oria 5 mg oral 6-10 tab, PO, l tablet 16:16: Daily, # Nabeel 00 90 tab, 3 Refill(s) Hydroxyzine 2019-0 Yes 25 mg = 1 M emoria Hydrochlori 5-27 tab, PO, l de 25 MG 14:09: QID, PRN Rosario nn Oral Tablet 00 Anxiety, X 10 day, # 40 tab, 0 Refill(s), Pharmacy: [facility] #[id number] Atenolol 25 2019-0 No 25 mg = 1 M emoria MG Oral 5-27 tab, PO, l Tablet 14:07: Daily, # [place] 00 30 tab, 1 Refill(s), Pharmacy: [facility] #[id number] Vital Signs Vital Name Observation Time Observation Value Comments Source WEIGHT 2021-08-29 09:26:00 106.731 kg HEIGHT 2020-12-13 08:47:00 173.4 cm WEIGHT 2020-12-13 08:47:00 111.494 kg HEIGHT 2020-12-13 08:47:00 173.4 cm WEIGHT 2020-12-13 08:47:00 111.494 kg Height 2020-06-22 19:00:00 177.8 cm [facility] [place] Weight 2020-06-22 19:00:00 [facility] Nabeel BMI Calculated 2020-06-22 19:00:00 Memori al [place] Systolic (mm Hg) 2020-01-03 20:26:00 Ron rial [place] Diastolic (mm Hg) 2020-01-03 20:26:00 Mem orial Nabeel Heart Rate 2020-01-03 20:26:00 [facility] Nabeel Respitory Rate 2020-01-03 20:26:00 Memori al [place] Temperature Oral (F) 2020-01-03 20:26:00 98.4 F [facility] [place] Height 2020-01-03 20:26:00 177.8 cm [facility] Nabeel Weight 2020-01-03 20:26:00 [facility] Nabeel BMI Calculated 2020-01-03 20:26:00 Memori al [place] Systolic (mm Hg) 2019-12-31 17:00:00 Ron rial Nabeel Diastolic (mm Hg) 2019-12-31 17:00:00 Mem orial Nabeel Systolic (mm Hg) 2019-12-31 16:00:00 Ron rial [place] Diastolic (mm Hg) 2019-12-31 16:00:00 Mem orial Nabeel Systolic (mm Hg) 2019-12-31 15:00:00 Ron rial [place] Diastolic (mm Hg) 2019-12-31 15:00:00 Mem orial [place] Temperature Oral (F) 2019-12-31 13:00:00 98.6 F [facility] Nabeel Respitory Rate 2019-12-31 10:00:00 Memori al [place] Temperature Oral (F) 2019-12-31 09:47:00 97.7 F [facility] [place] Temperature Oral (F) 2019-12-31 05:27:00 99.0 F [facility] [place] Respitory Rate 2019-12-31 02:02:00 Memori al Nabeel Respitory Rate 2019-12-31 01:30:00 Memori al [place] Height 2019-12-30 01:30:00 177.8 cm [facility] Nabeel Weight 2019-12-30 01:30:00 [facility] Nabeel BMI Calculated 2019-12-30 01:30:00 Memori al [place] Height 2019-12-23 17:34:00 177.8 cm [facility] [place] Weight 2019-12-23 17:34:00 [facility] Nabeel BMI Calculated 2019-12-23 17:34:00 Memori al Nabeel Systolic (mm Hg) 2019-09-14 16:15:00 Ron rial Nabeel Diastolic (mm Hg) 2019-09-14 16:15:00 Mem orial Nabeel Heart Rate 2019-09-14 16:15:00 [facility] Nabeel Respitory Rate 2019-09-14 16:15:00 Memori al Nabeel Temperature Oral (F) 2019-09-14 16:15:00 97.4 F [facility] [place] Height 2019-09-14 16:15:00 177.8 cm [facility] Nabeel Weight 2019-09-14 16:15:00 [facility] Nabeel BMI Calculated 2019-09-14 16:15:00 Memori al Nabeel Systolic (mm Hg) 2019-08-31 13:25:00 Ron rial Nabeel Diastolic (mm Hg) 2019-08-31 13:25:00 Mem orial Nabeel Heart Rate 2019-08-31 13:25:00 [facility] Nabeel Respitory Rate 2019-08-31 13:25:00 Memori al Nabeel Temperature Oral (F) 2019-08-31 13:25:00 98.1 F [facility] [place] Height 2019-08-31 13:25:00 177.8 cm [facility] Nabeel Weight 2019-08-31 13:25:00 [facility] [place] BMI Calculated 2019-08-31 13:25:00 Memori al [place] Procedures Procedure Date / Time Performed Performing Clinician [facility] e Implantation of 2019-12-30 05:00:00 [facility] Her cisneros biventricular cardiac pacemaker system ICD - Internal cardiac 2019-12-30 05:00:00 Memor ial [place] defibrillator procedure Encounters Start End Encounter Admission Attending Care Care Encounter Source Date/Time Date/Time Type Type Clinicians Facility Department ID 2021-10-31 2021-10-31 Outpatient HUGO LOOMIS [facility] [id number] SLE 00:00:00 00:00:00 NARA 2021-08-29 2021-08-29 [facility] [id number] [facility] 00:00:00 23:59:00 [facility] 2021-08-29 2021-08-29 Outpatient JOSE LOOMISHCA [facility] [id number] SLE 10:32:50 10:32:50 NARA 2021-03-07 2021-03-07 Outpatient TURNER FERNANDEZ [facility] [id number] SLE 00:00:00 00:00:00 NARA 2021-01-17 2021-01-17 Outpatient TURNER FERNANDEZ [facility] [id number] SLE 00:00:00 00:00:00 NARA 2020-12-13 2020-12-13 Outpatient [facility] [id number] [facility] 00:00:00 23:59:00 [facility] 2020-12-13 2020-12-13 Outpatient TURNER FERNANDEZ [facility] 1 [id number] SLE 00:00:00 00:00:00 NARA 2020-12-13 2020-12-13 Outpatient T[facility]NER [facility] [id number] SLE 00:00:00 00:00:00 2020-06-22 2020-06-23 Outpatient [facility] [id number] Memoria 18:48:00 04:59:00 r Nabeel 01 l [facility] 2020-06-22 2020-06-22 Outpatient TAJ KEIRA [facility] 13:48:00 23:59:00 KIRAN 2020-01-03 2020-01-04 [facility] [id number] Memoria 20:30:00 04:59:59 r Primary 02 l Rojas Ponce 2019-12-30 2019-12-31 Inpatient nullFlavo [facility] [id number] Memoria 01:16:00 18:00:00 r Nabeel 68 l [facility] 2019-12-30 2019-12-30 PreReg nullFlavo [facility] [id number] Memoria 18:30:00 18:30:00 r [place] 00 l [facility] 2019-12-27 2019-12-27 Outpatient [facility] 08:00:00 08:00:00 EDIS 2019-09-14 2019-09-15 Outpatient nullFlavo [facility] [id number] Memoria 16:15:00 04:59:59 r [facility] 2019-09-01 2019-09-02 Between nullFlavo [facility] [id number] Memoria 15:59:17 15:59:17 Visit r Primary 01 l Care Isrrael Ponce 2019-08-31 2019-09-02 Phone nullFlavo [facility] [id number] Memoria 19:36:05 04:59:59 Message r Primary 00 l [facility] 2019-08-31 2019-09-01 Outpatient nullFlavo [facility] [id number] Memoria 13:30:00 04:59:59 r Primary 00 l [facility] Results Test Description Test Time Test Comments Results Result Comments Source COMPREHENSIVE METABOLIC PANEL 2020-12-13 12:55:00 Test Item Value Reference Range Interpretation Comme nts TOTAL PROTEIN (BEAKER) 7.3 gm/dL 6.0-8.3 (test code = 770) ALBUMIN (BEAKER) (test code 4.0 g/dL 3.5-5.0 = 1145) ALKALINE PHOSPHATASE 55 U/L 40-150 (BEAKER) (test code = 346) BILIRUBIN TOTAL (BEAKER) 0.3 mg/dL 0.2-1.2 (test code = 377) SODIUM (BEAKER) (test code 138 meq/L 136-145 = 381) POTASSIUM (BEAKER) (test 3.8 meq/L 3.5-5.1 code = 379) CHLORIDE (BEAKER) (test 104 meq/L 98-107 code = 382) CO2 (BEAKER) (test code = 24 meq/L 22-29 355) BLOOD UREA NITROGEN 14 mg/dL 7-21 (BEAKER) (test code = 354) CREATININE (BEAKER) (test 1.06 mg/dL 0.57-1.25 code = 358) GLUCOSE RANDOM (BEAKER) 109 mg/dL 70-105 H (test code = 652) CALCIUM (BEAKER) (test code 8.8 mg/dL 8.4-10.2 = 697) AST (SGOT) (BEAKER) (test 28 U/L 5-34 code = 353) ALT (SGPT) (BEAKER) (test 49 U/L 6-55 code = 347) EGFR (BEAKER) (test code = 80 mL/min/1.73 sq m ESTIMATED GFR IS NOT 1092) ACCURATE CRE ATININE CLEARANCE IN [place] EDICTING GLOMERULAR FILT RATION RATE. ESTIMATED GFR IS NOT APPLICABLE FOR DIALYSIS PATIENTS. Adjunct Faculty Mathematics Department ID Niharika CALLES [id number] 12:55:00 Test Item Value Reference Range Interpretation Comments MAGNESIUM (BEAKER) (test code = 1.7 mg/dL 1.6-2.6 627) Adjunct Faculty Mathematics Department ID Niharika CALLES FURIC [id number] 12:55:00 Test Item Value Reference Range Interpretation Comments URIC ACID (BEAKER) (test code = 5.7 mg/dL 2.6-7.2 773) Adjunct Faculty Mathematics Department ID - STEVAN FLIPID [id number] 12:55:00 Test Item Value Reference Range Interpretation Comments TRIGLYCERIDES (BEAKER) (test code = 111 mg/dL 540) CHOLESTEROL (BEAKER) (test code = 163 mg/dL 631) HDL CHOLESTEROL (BEAKER) (test code 35 mg/dL = 976) LDL CHOLESTEROL CALCULATED (BEAKER) 106 mg/dL (test code = 633) Triglyceride Reference Range: Low Risk <150 Borderline 150-199 High Risk 200-499 Very High Risk >=500Cholesterol Reference Range: Low Risk <200 Borderline 200-239 High Risk >240HDL Cholesterol Reference Range: Low Risk >=60 High Risk <40LDL Cholesterol Reference Range: Optimal <100 Near Optimal 100-129 Borderline 130-159 High 160-189 Very High >=190 Adjunct Faculty Mathematics Department ID Niharika CALLES [id number] 12:55:00 Test Item Value Reference Range Interpretation Comments PREALBUMIN (BEAKER) (test code = 23 mg/dL 14-45 586) Adjunct Faculty Mathematics Department ID Niharika CALLES FTSH/FREE T4 IF [id number] 12:24:00 Test Item Value Reference Range Interpretation Comments THYROID STIMULATING HORMONE 1.065 uIU/mL 0.350-4.940 (BEAKER) (test code = 772) Adjunct Faculty Mathematics Department ID Niharika CALLES FCBC W/PLT COUNT & AUTO [id number] 11:43:00 Test Item Value Reference Range Interpretation Comments WHITE BLOOD CELL COUNT 3.6 K/ L 3.5-10.5 This is a corrected (BEAKER) (test code = result . Previous 775) result was 8.9 K/ L on 12/13/2020 at 1001 CDT RED BLOOD CELL COUNT 4.42 M/ L 4.63-6.08 L This is a corrected (BEAKER) (test code = result . Previous 761) result was 2.87 M/ L on 12/13/2020 a t 1001 CDT HEMOGLOBIN (BEAKER) 13.9 GM/DL 13.7-17.5 This is a corrected (test code = 410) result. Pr evious result was 8.7 GM/DL on 12/14/19 at 1001 CDT HEMATOCRIT (BEAKER) 39.9 % 40.1-51.0 L This is a corrected (test code = 411) result. Pr evious result was 28.1 % on 12/13/2020 at 1001 CDT MEAN CORPUSCULAR VOLUME 90.3 fL 79.0-92.2 This is a corrected (BEAKER) (test code = result . Previous 753) result was 97.9 fL on 12/13/2020 at 1001 CDT MEAN CORPUSCULAR 31.4 pg 25.7-32.2 This is a c orrected HEMOGLOBIN (BEAKER) result. Previous (test code = 751) result was 30.3 pg on 12/13/2020 at 1001 CDT MEAN CORPUSCULAR 34.8 GM/DL 32.3-36.5 This is a c orrected HEMOGLOBIN CONC result. Prev ious (BEAKER) (test code = result was 31.0 752) GM/DL on 12/14/19 21 at 1001 CDT RED CELL DISTRIBUTION 11.8 % 11.6-14.4 This i s a corrected WIDTH (BEAKER) (test result. Previous code = 412) result was 21.4 % on 12/13/2020 at 1001 CDT PLATELET COUNT (BEAKER) 185 K/CU MM 150-450 This is a corrected (test code = 756) result. Pr evious result was 284 K/CU MM on 12/13/2020 at 1001 CDT MEAN PLATELET VOLUME 10.6 fL 9.4-12.4 This is a corrected (BEAKER) (test code = result . Previous 754) result was 10.7 fL on 12/13/2020 at 1001 CDT NUCLEATED RED BLOOD 0 /100 WBC 0-0 CELLS (BEAKER) (test code = 413) (CELLAVISION MANUAL DIFF)2020-12-13 11:43:00 Test Item Value Reference Range Interpretation Comments NEUTROPHILS - REL 64 % (CELLAVISION)(BEAKER) (test code = 2816) LYMPHOCYTES - REL 22 % (CELLAVISION)(BEAKER) (test code = 2817) MONOCYTES - REL 12 % (CELLAVISION)(BEAKER) (test code = 2818) EOSINOPHILS - REL 2 % (CELLAVISION)(BEAKER) (test code = 2819) NEUTROPHILS - ABS 2.30 K/ul 1.78-5.38 (CELLAVISION)(BEAKER) (test code = 2830) LYMPHOCYTES - ABS 0.79 K/ul 1.32-3.57 L (CELLAVISION)(BEAKER) (test code = 2831) MONOCYTES - ABS 0.43 K/uL 0.30-0.82 (CELLAVISION)(BEAKER) (test code = 2832) EOSINOPHILS - ABS 0.07 K/uL 0.04-0.54 (CELLAVISION)(BEAKER) (test code = 2834) TOTAL COUNTED (BEAKER) (test code = 100 1351) RBC MORPHOLOGY (BEAKER) (test code Normal = 762) WBC MORPHOLOGY (BEAKER) (test code Normal = 487) PLT MORPHOLOGY (BEAKER) (test code Normal = 486) PLATELET CONCENTRATION Adequate (CELLAVISION)(BEAKER) (test code = 3438) Adjunct Faculty Mathematics Department ID - [id number] NATRIURETIC FACTOR (BNP)2020-12-13 10:15:00 Test Item Value Reference Range Interpretation Comments B-TYPE NATRIURETIC PEPTIDE (BEAKER) 35 pg/mL 0-100 (test code = 700) Adjunct Faculty Mathematics Department ID - STEVAN FHEMOGLOBIN [id number] 09:57:00 Test Item Value Reference Range Interpretation Comments HEMOGLOBIN A1C (CRESENCIO) (test code = 5.1 % 4.3-6.1 368) PROTHROMBIN TIME/[id number] 09:45:00 Test Item Value Reference Range Interpretation Comments PROTIME (CRESENCIO) 13.6 seconds 11.9-14.2 (test code = 759) INR (CRESENCIO) (test 1.06 See_Comment [Automat ed message] code = 370) The system [employer] generated this result transmitted ref erence range: <=5.90. The reference range was not used to int erpret this result as normal/abnormal . RECOMMENDED COUMADIN/WARFARIN INR THERAPY RANGESSTANDARD DOSE: 2.0 - 3.0 Includes: PROPHYLAXIS forvenous thrombosis, systemic embolization; TREATMENT for venous thrombosis and/or pulmonary embolus.HIGH RISK: Target INR is 2.5-3.5 for patients with mechanical heart valves.POCT-GLUCOSE [id number] 09:30:00 Test Item Value Reference Range Interpretation Comments POC-GLUCOSE METER 106 mg/dL 70-110 : TESTED A T [facility] 6720 (CRESENCIO) (test code = S[place] DOE CT, 1538) [address]: Adjunct Faculty Mathematics Department/Techni loida ID = [id number] for Gaby GABY diallo [id number] 05:24:008.8[facility] [id number] 05:24:00 Test Item Value Reference Range Interpretation Comments PT (test code = PT) 14.1 s 12.0-14.7 [id number] 05:24:00 Test Item Value Reference Range Interpretation Comments INR (test code = INR) 1.09 1 0.85-1.17 [facility] [id number] 05:24:00 Test Item Value Reference Range Interpretation Comments PTT (test code = PTT) 30.6 s 22.9-35.8 [facility] [id number] 05:24:0061.5[facility]ann[facility]OLOG[facility] 2019-12-31 05:24:0022.9[facility] [id number] 05:24:0010.8[facility] LynuwbyHIMKRNVUKC0951-73-26 05:24:004.1[facility] [id number] 05:24:000.7[facility] [id number] 05:24:005.0[facility] [place] [id number] 05:24:001.9[facility] StrdwdsJWBTCEZMHW2191-71-15 05:24:000.9 [facility] [id number] 05:24:000.3[facility]annHEMATOLOGY 2019-12-31 05:24:000.1[facility] HermannPARATHYROID SDQLRWT1886-79-15 05:24:001.06 [facility]annPARATHYROID WOBIUHV1015-51-60 05:24:001.05[facility] HermannCHEM CINGX3062-88-12 05:24:0095[facility] HermannCHEM OWHQY2329-89-56 05:24:0020 [facility]annCHEM VIILO1274-27-48 05:24:001.32[facility] HermannCHEM PANEL 2019-12-31 05:24:40956Vjmjnzin HermannCHEM RLYUZ2061-68-05 05:24:003.8[facility] MQSUU8842-58-99 05:24:37019Cxcsqgwz HermannCHEM MKHPV0613-99-03 05:24:0028[facility]CHE[facility] OUCMC9805-99-51 05:24:008.3[facility] CLTEU8469-70-77 05:24:008.8[facility] VSAAH4251-82-91 05:24:00 Test Item Value Reference Range Interpretation Comments B/C Ratio (test code = B/C Ratio) 15 1 6-25 [facility] ZCPCO5485-83-81 05:24:0070[facility]annCHE[facility] PANEL 2019-12-31 05:24:0026[facility] ZDOLM6045-02-49 05:24:003.4[facility] TFRWQ3258-04-75 05:24:0043[facility] RXPNE3042-25-48 05:24:000.5[facility] PJQDZ0699-39-66 05:24:006.7[facility] BXZAL2272-24-34 05:24:0019[facility] JNROQ2738-06-32 05:24:003.3 [facility] QLMBD9603-05-86 05:24:00 Test Item Value Reference Range Interpretation Comments A/G Ratio (test code = A/G Ratio) 1.0 1 0.7-1.6 [facility] PIUVH3295-70-25 05:24:002.0[facility]annCHEM PANEL 2019-12-31 05:24:005.2[facility] MolblghLKJJDLZOLL9078-04-50 05:24:008.1[facility] XgdibdnSZLFJLJFZI7866-83-08 05:24:004.33[facility] IwfvkcfNXEAWSEGNG8771-19-11 05:24:0014.1[facility] MziudsdAIRTGCLIJT5985-99-38 05:24:0040.3[facility] OPYFAMIRQT8900-42-04 05:24:0093.1[facility] ZtfybjtNACHWJLKFN2283-63-09 05:24:00 Test Item Value Reference Range Interpretation Comments MCH (test code = MCH) 32.6 pg 27.0-31.0 [facility] VecjwcoLZAFVIIVKO9891-21-18 05:24:0035.0[facility]annHEMATOLOGY 2019-12-31 05:24:0013.7[facility] VwzrgavPAWMSBCKJN3915-57-72 05:24:57375Enldipri HermannBACTERIAL - NLFSNNNK6562-91-53 13:59:00Positive 1*ABN*(12/30/19 8:59 AM) [facility] UBSVK9460-48-78 10:13:0085[facility]annCHE[facility] PANEL 2019-12-30 10:13:0015[facility]CHE[facility] GEUMI6878-93-75 10:13:001.05[facility] YVWCQ8287-48-75 10:13:59704Zmhslafy HermannCHEM MZLCA3465-28-07 10:13:003.7[facility] WFDOV7260-76-91 10:13:61659Zifplfem [facility]annCHEM LYLHA5584-12-18 10:13:0026[facility] XCZEJ0667-97-11 10:13:008.6 [facility] PDZIZ8906-13-61 10:13:008.7[facility]annCHEM PANEL 2019-12-30 10:13:0093[facility] XMEHQ9262-28-01 10:13:002.2[facility]CHE[facility] TKGXB4113-19-39 10:13:004.1[facility] UsrqubaMGBOCIZLSR8501-40-53 10:13:0053.7[facility] KgnygnqYYDUOLGKXV2114-98-43 10:13:0029.6[facility] VSNGWLBSCT6800-24-74 10:13:008.9[facility] PceacniONFXSUYSUB0038-49-35 10:13:006.8 [facility] LnjpulqWSQQCFPSPK3187-45-11 10:13:001.0[facility]annHEMATOLOGY 2019-12-30 10:13:004.0[facility] EcsgnrzJJBKZKRFZY8991-07-06 10:13:002.2[facility] GeryhqnPXYVXEKXGP8351-15-88 10:13:000.7[facility] HlkujflRQGCCIRNOA0613-78-67 10:13:000.5[facility] WhrgiguUVKFBHIFLB7553-08-03 10:13:000.1[facility] YVBKILKSYZ8202-09-33 10:13:007.5[facility] LmjxuciFTKLBAOLMJ9011-53-11 10:13:00 4.47[facility] QfpiawiCYDDAHSVEU8600-05-34 10:13:0014.4[facility]annHEMATOLOGY 2019-12-30 10:13:0042.0[facility] HktvvayKBWAGOVORL2679-31-15 10:13:0094.1[facility] HmfdfssQHGBVSZQBE4629-67-84 10:13:00 Test Item Value Reference Range Interpretation Comments MCH (test code = MCH) 32.2 pg 27.0-31.0 [facility] PgyaqrxFWKUMVNFMA0174-04-74 10:13:0034.2[facility]annHEMATOLOGY 2019-12-30 10:13:0013.7[facility] WbbbvgkZIOROECTBZ9982-20-14 10:13:99810Uthwpick LsovuwaKULMLANJQI9957-61-95 10:13:009.0[facility] NglpqiiJZNTBHAUUS4192-85-19 10:13:00 Test Item Value Reference Range Interpretation Comments PT (test code = PT) 13.9 s 12.0-14.7 [facility] AgjvnkyMARDAKNTXI9350-89-58 10:13:00 Test Item Value Reference Range Interpretation Comments INR (test code = INR) 1.07 1 0.85-1.17 [facility] PgrwjkwFSDDLGIWIT8441-94-43 10:13:00 Test Item Value Reference Range Interpretation Comments PTT (test code = PTT) 27.8 s 22.9-35.8 [facility] HermannPARATHYROID VDIJMPG8834-52-14 10:13:001.07[facility] [place] PARATHYROID JCJOZPC7305-84-48 10:13:001.06[facility] HermannCARDIAC ENZYMES 2019-12-30 02:05:00<0.02[facility]annCARDIAC JQLTXOE3194-47-03 02:05:0090 [facility]CHE[facility] MNZEU1540-87-34 02:05:0028[facility]annCHEM PANEL 2019-12-30 02:05:003.6[facility]CHE[facility] GMQWZ9339-38-18 02:05:0046[facility]CHE[facility] NYQJA2811-37-19 02:05:000.1[facility] ZZHQL6258-54-63 02:05:000.6[facility] EHQCS7362-53-88 02:05:000.5[facility] GCRPL4345-37-45 02:05:007.2[facility] XQRZJ0783-99-04 02:05:0022 [facility] UNDOB7301-60-22 02:05:003.6[facility]annCHEM PANEL 2019-12-30 02:05:00 Test Item Value Reference Range Interpretation Comments A/G Ratio (test code = A/G Ratio) 1.0 1 0.7-1.6 [facility]annBLOOD BANK YUEHIAC9781-63-46 01:48:00Negative (12/29/19 8:48 PM) [facility] GAVXZ8612-74-27 01:48:002.0[facility]annCHEM PANEL 2019-12-30 01:48:004.2[facility]CHE[facility] JSXFF3435-97-68 01:48:0082[facility]annCHE[facility] DFCHX4033-05-36 01:48:0011[facility]CHE[facility] HGJAS1225-97-26 01:48:000.96[facility]CHE[facility] LJRMS0387-16-50 01:48:57884Eropixyf HermannCHEM UCIMK2498-57-52 01:48:004.2[facility]CHE[facility] XLMMV6862-00-46 01:48:93890 [facility] OKKET3189-09-55 01:48:0025[facility]annCHEM PANEL 2019-12-30 01:48:008.8[facility]CHE[facility] PHVDH5010-99-30 01:48:0012.2[facility]annCHE[facility] MVANS2049-44-83 01:48:00 Test Item Value Reference Range Interpretation Comments B/C Ratio (test code = B/C Ratio) 11 09-28 [facility] XUEWH6392-20-94 01:48:33961Efzqurrc HermannCHEM PANEL 2019-12-30 01:48:0028[facility]annCHE[facility] OLSGS2163-71-43 01:48:003.[facility]annCHE[facility] KJXNX3742-25-66 01:48:0044[facility]annCHE[facility] KSNVT7755-47-57 01:48:000.[facility]annCHE[facility] MQXSC1230-72-49 01:48:007.1[facility]annCHE[facility] TKCUX0195-33-20 01:48:0020[facility]CHE[facility] FGQZN2363-22-48 01:48:003.5 [facility] ATXZE0528-63-23 01:48:00 Test Item Value Reference Range Interpretation Comments A/G Ratio (test code = A/G Ratio) 1.0 1 0.7-1.6 [facility] EqmmtvrVDGMUXTTSE2125-88-91 01:48:00 Test Item Value Reference Range Interpretation Comments PTT (test code = PTT) 30.4 s 22.9-35.8 [facility] PyprszmJEWZVIHMZO2998-40-54 01:48:007.0[facility]annHEMATOLOGY 2019-12-30 01:48:004.50[facility] OioxvkfWVTOYPVPYT1803-78-30 01:48:0014.4[facility] VfezudbAOHRZWWOVR0920-07-95 01:48:0041.4[facility] EtwcbtxUCLVYTXEOE0672-58-38 01:48:0092.1[facility] XzrjrfdTGGDTAYNUC9693-16-39 01:48:00 Test Item Value Reference Range Interpretation Comments MCH (test code = MCH) 32.0 pg 27.0-31.0 [facility] HwkewqzHZRHUQXMSL2952-32-02 01:48:0034.8[facility]annHEMATOLOGY 2019-12-30 01:48:0013.7[facility] GgynhygVUAKSMCKUJ6398-00-81 01:48:92691Nfzpxyfp MzxgrwjPEVJBPCHEN1619-25-38 01:48:009.5[facility] ScerdsfZCSQHDJHKP0556-03-36 01:48:0049.7[facility] EhhoonvVPZHSMCAWQ0962-73-75 01:48:0033.2[facility] HRUDFYIHTJ5469-61-62 01:48:009.0[facility] PnckndyFGCYHSBDAA2607-70-40 01:48:007.0 [facility] PyywofzMMQOTXEQSK6588-02-25 01:48:001.1[facility]annHEMATOLOGY 2019-12-30 01:48:003.5[facility] RrjdpixZXKWCVPAOC5122-84-18 01:48:002.3[facility] IccxchnXAUHIWUHPH5517-66-40 01:48:000.6[facility] EkrpjylKDAYKJNSVW3901-71-35 01:48:000.5[facility] QnxpahcBSYFESMMXU8112-43-75 01:48:000.1[facility] WMNVKC0903-04-34 01:48:0088[facility] UyyokhmBDONQT7231-57-49 01:48:32448Xuxrothc ZmwddbtCZSSXX7493-20-79 01:48:0043[facility] GmdcldaXDKELX2170-52-67 01:48:00 Test Item Value Reference Range Interpretation Comments CHD Risk (test code = CHD Risk) 3.30 1 4.00-7.30 [facility] DwsoldmAYARLJ7945-63-89 01:48:0081[facility] NcgeyhkAKVCUY0467-29-10 01:48:00 Test Item Value Reference Range Interpretation Comments VLDL (test code = VLDL) 18 1 [facility] HermannPARATHYROID HWRNZQG3535-41-42 01:48:001.12[facility] [place] PARATHYROID SPWVFFB6453-34-18 01:48:001.09[facility] HermannSPECIAL CHEMISTRY 2019-12-30 01:48:005.5[facility] XwljosyQFDHPZCSSN7437-38-07 16:15:00Not Detected *NA*(12/27/19 11:15 AM)[facility]annCHEM BRIYT3229-63-97 13:52:64567Eqtnwtgb HermannCHEM WSZPE5835-08-31 13:52:0021[facility]annCHEM ZQPXX4374-16-51 13:52:001.16[facility]annCHEM ATDHE3791-92-10 13:52:0082[facility]annCHEM BTNUX9120-83-88 13:52:0095[facility]annCHEM MOWKD6374-97-58 13:52:69243 [facility] EQNMC3269-53-13 13:52:004.1[facility]annCHEM PANEL 2019-08-31 13:52:53238Lbtyhouu HermannCHEM ZITMV7293-92-58 13:52:0026[facility]annCHEM JHKVG1374-84-87 13:52:009.0[facility]annCHEM GPEFF1006-46-29 13:52:005.9[facility]annCHEM NNVDZ4768-03-83 13:52:003.8[facility]annCHEM YFRDP5246-22-69 13:52:002.1[facility]annCHEM VJYMN0754-89-21 13:52:001.8 [facility]CHE[facility] COIXW6360-92-17 13:52:000.8[facility]annCHEM PANEL 2019-08-31 13:52:0047[facility]annCHEM KLZWN0260-57-03 13:52:0021[facility]annCHEM ZYGOG0892-86-59 13:52:0043[facility] NlrmtwbQBIYHIHRFB7221-86-41 13:52:007.0[facility] InoteopLSQHGIEFYD6457-54-43 13:52:004.46[facility] [place] RUEEOFABNU0689-43-66 13:52:0014.2[facility] WizkvyvAZBZRHHIPK5805-39-12 13:52:00 41.2[facility] LuvqlkmHRRRHJXXJS0233-79-72 13:52:0092.4[facility] HermannHEMATOLOGY 2019-08-31 13:52:00 Test Item Value Reference Range Interpretation Comments MCH (test code = MCH) 31.8 pg 27.0-33.0 [facility] KkfsoyrJPSVGPIFQM9174-33-04 13:52:0034.5[facility]annHEMATOLOGY 2019-08-31 13:52:0013.0[facility] MrzqdvxMDIQZNJAKS0988-17-19 13:52:90347[place] ZwpjfxcOMVWASSJUD5044-64-21 13:52:0013.0[facility] LbfpstiGPIJKJTVBU5305-89-57 13:52:670217Pmnsojwe UiqcpsmLPWRFJNWGV6823-11-11 13:52:588449Bpccfliy [place] MTJGWYGZAI0570-51-67 13:52:53748Ilwacuuv QmrdxwiNXKTWDNLCV5687-45-11 13:52:57505 [facility] SxarcpnTQKBYHIDOZ0610-47-02 13:52:0063[facility]annHEMATOLOGY 2019-08-31 13:52:0068.1[facility] JxpuiybDXTKSABHWJ5997-33-45 13:52:0021.3[facility] HhhbxmbNHMSQMMTPW6262-20-67 13:52:006.7[facility] OcitaeaVFZMCWXUIV9445-89-37 13:52:003.0[facility] GatkhzkAEXWHHQGQU1239-83-22 13:52:000.9[facility] [place]
--- NOTE | 2021-09-10 16:25 | RAD REPORT ---
EXAM DESCRIPTION: RAD - Chest Single View - 09/10/2021 4:20 pm CLINICAL HISTORY: CHEST PAIN Chest pain. COMPARISON: Chest Single View dated 05/14/2020; Chest Single View dated 05/13/2020; Chest Single View da carlie 12/29/2019; Chest Single View dated 08/31/2019 FINDINGS: Portable technique limits examination quality. The lungs are grossly clear. The heart is upper limit of normal in size. No displaced fractures.Multi lead pacer/defibrillator device present. IMPRESSION: No acute intrathoracic process suspected.
[2021-09-10] MEDS ORDERED: LEVALBUTEROL 1.25 MG/3 ML NEB ONE (16:36)
[2021-09-10] MEDS ORDERED: FENTANYL CITR 100 MCG/2 ML ONE (16:36)
[2021-09-10 16:53] LABS: Absolute Lymphocytes (CBC) 0.3 K/uL (0.7-4.9); Hematocrit 43.1 % (39.6-49.0); Lymphocytes % 5.9 % (15.3-44.8); MPV 8.5 fL (7.6-11.3); Protime INR 1.16; RBC Red Blood Cell Count 4.76 M/uL (4.33-5.43)
[2021-09-10 17:12] LABS: Albumin 3.9 g/dL (3.4-5.0); Bilirubin Direct 0.1 mg/dL (0-0.2); Bilirubin Total 0.4 mg/dL (0.2-1.0); Magnesium 2.1 mg/dL (1.8-2.4); Protein, Total 7.5 g/dL (6.4-8.2)
[2021-09-10] MEDS ORDERED: MORPHINE 4 MG/ML SYR ONE (18:15)
--- NOTE | 2021-09-10 18:36 | RAD REPORT ---
EXAM DESCRIPTION: CT - Head Brain Wo Cont - 09/10/2021 6:29 pm CLINICAL HISTORY: Headache, new or worsening, positional Headache, drowsiness COMPARISON: No comparisons TECHNIQUE: All CT scans are performed using dose optimization technique as appropriate and may inclu de automated exposure control or mA/KV adjustment according to patient size. FINDINGS: No intracranial hemorrhage, hydrocephalus or extra-axial fluid collection.No areas of brai n edema or evidence of midline shift. The paranasal sinuses and mastoids are clear except for opacification of the sphenoid sinus. The calv arium is intact. IMPRESSION: No acute intracranial abnormality.
--- NOTE | 2021-09-10 18:45 | RAD REPORT ---
EXAM DESCRIPTION: CT - Angio Aorta For Dissection - 09/10/2021 6:29 pm CLINICAL HISTORY: Chest pain radiating to the back. chest pain COMPARISON: No comparisons TECHNIQUE: CT angiography of the aorta was performed with MIPs. All CT scans are performed using dose optimization technique as appropriate and may include automated exposure control or mA/KV adjustment according to patient size. FINDINGS: A left aortic arch is present with normal branching pattern of the great vessels.No acute aortic finding is seen such as aneurysm, penetrating ulcer or dissection. The celiac axis, SMA, ANNALEE and renal arteries are patent. No evidence of pulmonary embolism. Mild pulmonary edema is seen. The heart is mildly enlarged with a multi lead pacer device present. Sm all hiatal hernia. The liver demonstrates no focal mass or biliary dilatation.The spleen, pancreas, adrenal glands and k idneys are within normal limits for arterial phase imaging. No bowel obstruction, free fluid or abscess.No pathologic enlarged lymphadenopathy identified. No fracture or worrisome bone lesion seen. IMPRESSION: No acute aortic finding is demonstrated. Mild CHF.
[2021-09-10] MEDS ORDERED: LORazepam 2 MG/ML VIAL ONE (18:47)
[2021-09-10 18:51] LABS: Urine Blood Negative (Negative); Urine Glucose Negative (Negative); Urine Protein Negative (Negative); Urine pH 6.5 (5.0-7.0)
[2021-09-10 19:14] LABS: Barbiturates NEGATIVE (NEGATIVE); Benzodiazepines NEGATIVE (NEGATIVE); Cocaine NEGATIVE (NEGATIVE); METHAMPHETAM NEGATIVE (NEGATIVE); Methadone NEGATIVE (NEGATIVE); Opiates POSITIVE (NEGATIVE); Phencyclidine NEGATIVE (NEGATIVE); THC Cannibis POSITIVE (NEGATIVE)
[2021-09-10] MEDS ORDERED: KETOROLAC 30 MG/ML INJ ONE (19:19)
[2021-09-10] MEDS ORDERED: NA CHLORIDE 0.9% 500 ML ONE (19:44)
--- NOTE | 2021-09-10 21:16 | EDPHYS ---
Physician Documentation [facility] Name: Bruce Medina Age: 36 yrs Sex: Male : 1985 Arrival Date: 09/10/2021 Time: 15:45 Bed 2 Private MD: ED Physician Fox Dutton HPI: 09/10 16:10 This 36 yrs old Male presents to ER via Ambulatory with complaints of Chest Pain, cp Headache, Low Back Pain. 16:10 The patient or guardian reports chest pain that is located primarily in the anterior cp chest wall. 16:10 The pain radiates to back. Associated signs and symptoms: Pertinent positives: cp headache, nausea, low back pain, Pertinent negatives: abdominal pain, diaphoresis, lower extremity pain, lower extremity swelling, palpitations, syncope, vomiting. 16:10 The chest pain is described as a pressure. cp Historical: - Allergies: 15:53 Sulfa (Sulfonamide Antibiotics); jb4 - Home Meds: 15:53 Furosemide Oral [Active]; Entresto Oral [Active]; Spironolactone Oral [Active]; jb4 - PMHx: 15:53 HEART FAILURE; jb4 - PSHx: 15:53 pacemaker/defib; heartcath; jb4 - Immunization history:: Adult Immunizations up to date. - Social history:: Smoking status: Patient denies any tobacco usage or history of. ROS: 16:15 Constitutional: Negative for body aches, chills, fever, poor PO intake. cp 16:15 Cardiovascular: Positive for chest pain, Negative for edema. cp 16:15 Respiratory: Positive for shortness of breath, Negative for wheezing. 16:15 Eyes: Negative for injury, pain, redness, and discharge. cp 16:15 ENT: Negative for drainage from ear(s), ear pain, sore throat, difficulty swallowing, difficulty handling secretions. 16:15 Neck: Negative for stiffness. 16:15 Abdomen/GI: Positive for nausea, Negative for abdominal pain, vomiting, diarrhea, constipation. 16:15 Back: Positive for pain at rest, pain with movement. 16:15 Neuro: Positive for headache, Negative for altered mental status, syncope, weakness. 16:15 All other systems are negative. Exam: 16:20 Constitutional: The patient appears in no acute distress, alert, awake, cp non-diaphoretic, non-toxic, well developed, well nourished, obese. 16:20 Head/Face: Normocephalic, atraumatic. cp 16:20 Eyes: Periorbital structures: appear normal, Pupils: equal, round, and reactive to light and accomodation, Extraocular movements: intact throughout, Conjunctiva: normal, no exudate, no injection, Sclera: no appreciated abnormality, Lids and lashes: appear normal, bilaterally. 16:20 ENT: External ear(s): are unremarkable, Nose: Mouth: Lips: moist, Oral mucosa: moist, Posterior pharynx: Airway: no evidence of obstruction, patent. 16:20 Neck: ROM/movement: is normal, is supple, without pain, no range of motions limitations, no nuchal rigidity. 16:20 Chest/axilla: Inspection: normal, Palpation: is normal, no crepitus, no tenderness. 16:20 Cardiovascular: Rate: tachycardic, Rhythm: regular, Edema: is not appreciated, JVD: is not appreciated. 16:20 Respiratory: the patient does not display signs of respiratory distress, Respirations: normal, no use of accessory muscles, no retractions, labored breathing, is not present, Breath sounds: are clear throughout, no decreased breath sounds, no stridor, no wheezing. 16:20 Abdomen/GI: Inspection: abdomen appears normal, Bowel sounds: active, all quadrants, Palpation: abdomen is soft and non-tender, in all quadrants. 16:20 Back: pain, that is moderate, of the low back area and mid back area, ROM is painful, with all movement. 16:20 Skin: no rash present. 16:20 Neuro: Orientation: to person, place \T\ time. Mentation: is normal, Cerebellar function: is grossly normal, Motor: moves all fours, strength is normal, Sensation: is normal. 16:30 ECG was reviewed by the Attending Physician. cp Vital Signs: 15:50 BP 106 / 77; Pulse 107; Resp 22; Temp 99.7; Pulse Ox 95% on R/A; Weight 106.59 kg (R); jb4 Height 5 ft. 10 in. (177.80 cm) (R); Pain 10/10; 17:00 BP 106 / 84; Pulse 115; Resp 20; Pulse Ox 98% ; bp 18:00 BP 141 / 103; Pulse 89; Resp 20; Pulse Ox 100% ; bp 19:16 BP 104 / 56; Pulse 122; Resp 18 S; Pulse Ox 98% on R/A; as6 19:32 BP 104 / 56; Pulse 120; Resp 24; Pulse Ox 95% ; mw1 20:02 BP 91 / 54; Pulse 120; Resp 16; Pulse Ox 96% on 2 lpm NC; tw5 21:17 BP 95 / 56; Pulse 107; Resp 24 S; Pulse Ox 97% on R/A; as6 15:50 Body Mass Index 33.72 (106.59 kg, 177.80 cm) jb4 MDM: 16:02 Patient medically screened. cp 21:15 Data reviewed: vital signs, nurses notes, lab test result(s), EKG, radiologic studies, cp CT scan, plain films. 21:15 Test interpretation: by ED physician or midlevel provider: ECG, plain radiologic cp studies. Counseling: I had a detailed discussion with the patient and/or guardian regarding: the historical points, exam findings, and any diagnostic results supporting the discharge/admit diagnosis, lab results, radiology results, to return to the emergency department if symptoms worsen or persist or if there are any questions or concerns that arise at home. Response to treatment: the patient's symptoms have mildly improved after treatment. ED course: VS noted. Review of labs, EKG and radiology studies negative for acute findings. Initial and repeat troponin negative. Will discharge to home for continued monitoring. 09/10 16:03 Order name: Basic Metabolic Panel; Complete Time: 17:30 cp 09/10 17:30 Interpretation: Normal except: K 3.0; GLUC 139; GFR 88. cp 09/10 16:03 Order name: CBC with Diff; Complete Time: 17:30 cp 09/10 17:31 Interpretation: Normal except: JADA% 80.4; LYM% 5.9; LYMA 0.3. cp 09/10 16:03 Order name: LFT's; Complete Time: 17:30 cp 09/10 19:25 Interpretation: Normal except: GLOB 3.6. cp 09/10 16:03 Order name: Magnesium; Complete Time: 17:30 cp 09/10 16:03 Order name: NT PRO-BNP; Complete Time: 17:30 cp 09/10 16:03 Order name: PT-INR; Complete Time: 17:30 cp 06/ 16:03 Order name: Troponin HS; Complete Time: 17:30 cp / 16:03 Order name: XRAY Chest (1 view); Complete Time: 17:30 cp /07 17:31 Interpretation: Report review. cp / 17:36 Order name: CT Head Brain wo Cont; Complete Time: 18:46 cp 09/10 18:47 Interpretation: Report reviewed. cp 09/10 17:36 Order name: CT Aorta for Dissection; Complete Time: 18:46 cp 09/10 18:48 Interpretation: Report reviewed. cp / 18:18 Order name: UDS; Complete Time: 19:20 cp 09/10 19:20 Interpretation: Reviewed. cp 09/10 18:51 Order name: Urine Dipstick-Ancillary; Complete Time: 19:20 EDMS / 20:12 Order name: Troponin High Sensitivity; Complete Time: 21:10 cp /07 21:10 Interpretation: Reviewed. cp 09/10 16:03 Order name: EKG; Complete Time: 16:03 cp / 16:03 Order name: Cardiac monitoring; Complete Time: 16:11 cp /07 16:03 Order name: EKG - Nurse/Tech; Complete Time: 16:46 cp / 16:03 Order name: IV Saline Lock; Complete Time: 16:45 cp / 16:03 Order name: Labs collected and sent; Complete Time: 16:45 cp /07 16:03 Order name: O2 Per Protocol; Complete Time: 16:10 cp / 16:03 Order name: O2 Sat Monitoring; Complete Time: 16:10 cp 07 18:18 Order name: Urine Dipstick-Ancillary (obtain specimen); Complete Time: 18:51 cp EC:30 Rate is 97 beats/min. Rhythm is regular. AK interval is normal. QRS interval is cp prolonged at 130 msec. QT interval is normal. T waves are Inverted in leads aVL, aVR, V2. Interpreted by me. Reviewed by me. Administered Medications: 16:15 Drug: fentaNYL (PF) 25 mcg Route: IVP; Site: left antecubital; bp 18:11 Follow up: Response: No adverse reaction bp 16:15 Drug: Xopenex (levalbuterol) (3) 1.25 mg Route: Inhalation; bp 18:11 Drug: morphine 4 mg Route: IVP; Infused Over: 4 mins; Site: left antecubital; bp 18:27 Follow up: Response: Pain is decreased bp 18:40 Drug: Ativan (LORazepam) 0.5 mg Route: IVP; Site: left antecubital; jd3 19:16 Drug: Ketorolac 15 mg Route: IVP; Site: left antecubital; as6 19:54 Drug: NS 0.9% 500 ml Route: IV; Rate: 250 ml/hr; Site: right antecubital; tw5 Disposition Summary: 09/10/21 21:15 Discharge Ordered Location: Home cp Problem: new cp Symptoms: have improved cp Condition: Stable cp Diagnosis - Chest pain, unspecified cp - Headache cp - Low back pain cp Followup: cp - With: Private Physician - When: 2 - 3 days - Reason: Recheck today's complaints Discharge Instructions: - Discharge Summary Sheet cp - Acute Back Pain, Adult cp - Nonspecific Chest Pain, Adult cp - General Headache Without Cause cp - Aspirin and Your Heart cp - Back Exercises cp Forms: - Medication Reconciliation Form cp - Thank You Letter cp - Antibiotic Education cp - Prescription Opioid Use cp Prescriptions: - Zofran 4 mg Oral Tablet - take 1 tablet by ORAL route every 12 hours As needed; 20 tablet; Refills: 0, cp Product Selection Permitted - Cyclobenzaprine 10 mg Oral Tablet - take 1 tablet by ORAL route every 8 hours As needed; 20 tablet; Refills: 0, cp Product Selection Permitted - Tramadol 50 mg Oral Tablet - take 1 tablet by ORAL route every 8 hours as needed; 12 tablet; Refills: 0, cp Product Selection Permitted Addendum: 09/12/2021 00:09 Co-signature as Attending Physician, Fox Dutton MD. r n Signatures: Dispatcher [employer] Fox Lr MD MD rn Page, Corey, PA PA cp Kaz Talbot RN RN jb4 Kenan Vanessa RN RN jWilliam Pierre RN RN Cynthia Gardner tw5 Junior Solorzano RN RN as6
--- NOTE | 2021-09-10 21:16 | ER ---
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 He has been reporting having an extreme headache, and chest pain as well. It all started this morning around 11am. Coronavirus screen: At this time, the client does not indicate any symptoms associated with coronavirus-19. Ebola Screen: No symptoms or risks identified at this time. Initial Sepsis Screen: Does the patient meet any 2 criteria? RR > 20 per min. HR > 90 bpm. Yes Does the patient have a suspected source of infection? No. Patient's initial sepsis screen is negative. Risk Assessment: Do you want to hurt yourself or someone else? Patient reports no desire to harm self or others. Onset of symptoms was September 10, 2021. Transition of care: patient was not received from another setting of care. 15:50 Method Of Arrival: Ambulatory jb4 15:50 Acuity: LIAN 2 jb4 Triage Assessment: 16:00 General: Appears distressed, uncomfortable, Behavior is cooperative, appropriate for bp age, anxious. Pain: Complains of pain in back and chest. EENT: No deficits noted. Neuro: No deficits noted. Cardiovascular: Rhythm is Respiratory: Reports shortness of breath. GI: No signs and/or symptoms were reported involving the gastrointestinal system. : No signs and/or symptoms were reported regarding the genitourinary system. Derm: No deficits noted. Musculoskeletal: No deficits noted. Historical: - Allergies: 15:53 Sulfa (Sulfonamide Antibiotics); jb4 - Home Meds: 15:53 Furosemide Oral [Active]; Entresto Oral [Active]; Spironolactone Oral [Active]; jb4 - PMHx: 15:53 HEART FAILURE; jb4 - PSHx: 15:53 pacemaker/defib; heartcath; jb4 - Immunization history:: Adult Immunizations up to date. - Social history:: Smoking status: Patient denies any tobacco usage or history of. Screenin:00 Abuse screen: Denies threats or abuse. Denies injuries from another. Nutritional bp screening: No deficits noted. Tuberculosis screening: No symptoms or risk factors identified. Fall Risk None identified. Assessment: 16:00 General: SEE TRIAGE NOTE. bp 18:00 Reassessment: PT TO CT. bp 19:17 General: Appears uncomfortable, Behavior is calm, cooperative, "I'm just really as6 fatigued and my back and head are killing me" . Pain: Complains of pain in head and back. Neuro: Reports headache. 19:51 General: placed on 2 LPM O2 via NC. as6 20:02 General: Reports "I just dont feel good." at the bedside states he was diagnosed tw5 with CHF 2 years ago. Cardiovascular: Rhythm is sinus tachycardia. Respiratory: Airway is patent Trachea midline Respiratory effort is even, unlabored. Derm: No deficits noted. 21:27 General: Reports "Get me out of here, I am ready to go home.". tw5 21:28 Pain: Pain does not radiate. Pain began suddenly. tw5 Vital Signs: 15:50 BP 106 / 77; Pulse 107; Resp 22; Temp 99.7; Pulse Ox 95% on R/A; Weight 106.59 kg (R); jb4 Height 5 ft. 10 in. (177.80 cm) (R); Pain 10/10; 17:00 BP 106 / 84; Pulse 115; Resp 20; Pulse Ox 98% ; bp 18:00 BP 141 / 103; Pulse 89; Resp 20; Pulse Ox 100% ; bp 19:16 BP 104 / 56; Pulse 122; Resp 18 S; Pulse Ox 98% on R/A; as6 19:32 BP 104 / 56; Pulse 120; Resp 24; Pulse Ox 95% ; mw1 20:02 BP 91 / 54; Pulse 120; Resp 16; Pulse Ox 96% on 2 lpm NC; tw5 21:17 BP 95 / 56; Pulse 107; Resp 24 S; Pulse Ox 97% on R/A; as6 15:50 Body Mass Index 33.72 (106.59 kg, 177.80 cm) jb4 ED Course: 15:45 Patient arrived in ED. rg4 15:53 Triage completed. jb4 15:53 Arm band placed on right wrist. jb4 15:58 Bradly Ryan PA is PHCP. cp 15:58 Fox Dutton MD is Attending Physician. cp 15:58 William Jim, DENNIS is Primary Nurse. bp 16:00 Patient has correct armband on for positive identification. Bed in low position. Call bp light in reach. Side rails up X2. Client placed on continuous cardiac and pulse oximetry monitoring. NIBP monitoring applied. 16:22 XRAY Chest (1 view) In Process Unspecified. EDMS 16:45 Inserted saline lock: 20 gauge in left antecubital area, using aseptic technique. Blood zm collected. 16:45 Troponin HS Sent. zm 16:45 PT-INR Sent. zm 16:45 NT PRO-BNP Sent. zm 16:45 Magnesium Sent. zm 16:46 LFT's Sent. zm 16:46 CBC with Diff Sent. zm 16:46 Basic Metabolic Panel Sent. zm 18:30 CT Head Brain wo Cont In Process Unspecified. EDMS 18:30 CT Aorta for Dissection In Process Unspecified. EDMS 21:27 No provider procedures requiring assistance completed. IV discontinued, intact, tw5 bleeding controlled, No redness/swelling at site. Pressure dressing applied. Patient maintains SpO2 saturation greater than 95% on room air. Administered Medications: 16:15 Drug: fentaNYL (PF) 25 mcg Route: IVP; Site: left antecubital; bp 18:11 Follow up: Response: No adverse reaction bp 16:15 Drug: Xopenex (levalbuterol) (3) 1.25 mg Route: Inhalation; bp 18:11 Drug: morphine 4 mg Route: IVP; Infused Over: 4 mins; Site: left antecubital; bp 18:27 Follow up: Response: Pain is decreased bp 18:40 Drug: Ativan (LORazepam) 0.5 mg Route: IVP; Site: left antecubital; jd3 19:16 Drug: Ketorolac 15 mg Route: IVP; Site: left antecubital; as6 19:54 Drug: NS 0.9% 500 ml Route: IV; Rate: 250 ml/hr; Site: right antecubital; tw5 Medication: 21:27 VIS not applicable for this client. tw5 Outcome: 21:15 Discharge ordered by . cp 21:27 Discharged to home ambulatory, with family. tw5 21:27 Condition: stable 21:27 Discharge instructions given to patient, Instructed on discharge instructions, follow up and referral plans. Demonstrated understanding of instructions, follow-up care, medications, Prescriptions given X 3. 21:28 Patient left the ED. tw5 Signatures: Dispatcher [employer] EDMS Bradly Ryan PA PA cp Garcia, Rubi rg4 Kaz Talbot, RN RN jb4 Angus Ramirez mw1 Kenan Vanessa RN RN jd3 William Jim RN RN Cynthia Gardner tw5 Junior Solorzano RN RN as6 Smiley Sanz
[2021-09-10 21:43] VITALS: TEMP 99.7
[2021-09-10 21:54] VITALS: BP 95/56; O2SAT 97
--- NOTE | 2021-09-11 07:54 | EKG ---
Test Date: 2021-09-10 Test Time: 16:23:23 [employer] Clerk: MIKAYLA MEASUREMENT RESULTS: Intervals: Rate: 97 CA: 152 QRSD: 130 QT: 388 QTc: 492 [place]: P: 26 CA: 152 QRS: -77 T: 64 INTERPRETIVE STATEMENTS: Atrial-sensed ventricular-paced rhythm Abnormal ECG Compared to ECG 05/14/2020 14:21:46 Sinus rhythm no longer present Atrial premature complex(es) no longer present Ventricular premature complex(es) no longer present Right bundle-branch block no longer present Left posterior fascicular block no longer present Bifascicular block no longer present T-wave abnormality no longer present Possible ischemia no longer present Electronically Signed On 09-11-21 07:52:35 CDT by Lowell Cid
== END 2021-09-10 21:28 | disposition home or self-care (01) ==
LOC: ER 15:44
DX: R07.89 Other chest pain (principal); R51.9 Headache, unspecified; M54.50 Low back pain, unspecified; I50.9 Heart failure, unspecified; Z95.810 Presence of automatic (implantable) cardiac defibrillator; Z88.2 Allergy status to sulfonamides
CPT/HCPCS: 93005; 85025; 80048; 36415; 83735; 85610; 80076; 81003; 84484 ×2; 83880; 80307; 70450; 71275; 74175; 71045; Q9967; J3010; J7040